=== PATIENT | female | born 1960 | race Caucasian/White ===

== ENCOUNTER → 2019-12-30 09:18 | Outpatient (CLI) | payer BC, SELFPAY ==
--- NOTE | ~2019-12-30 | DEXA_ITS ---
Bone Density Report Name: Mirlande Ace Age: 59 Sex: Female Ethnicity: White Date of : 1960 Indication: postmenopausal; screening for osteoporosis; height loss; Referring Provider: TIGRE FISHER Study: Bone densitometry was performed. Exam Date: December 30, 2019 Accession number: [id number] Bone Density: Region BMD T-score Z-score Classification AP Spine (L1-L4) 1.180 1.2 2.5 Normal Femoral Neck (Left) 0.958 1.0 2.2 Normal Total Hip (Left) 1.165 1.8 2.7 Normal Femoral Neck (Right) 0.863 0.1 1.3 Normal Total Hip (Right) 1.165 1.8 2.7 Normal Total Hip Mean 1.165 1.8 2.7 Normal World Health Organization criteria for BMD impression classify patients as: Normal (T-score at or above -1.0), Osteopenia (T-score between -1.0 and -2.5), or Osteoporosis (T-score at or below -2.5). 10-year Fracture Risk: FRAX not reported because: All T-scores for Spine Total, Hip Total, Femoral Neck at or above -1.0 Previous Exams: Region Exam Age BMD T-score BMD Change BMD Change Date g/cm2 vs Baseline vs Previous AP Spine(L1-L4) 12/30/2019 59 1.180 1.2 0.011 0.011 07/09/2013 52 1.169 1.1 Total Hip(Left) 12/30/2019 59 1.165 1.8 0.006 0.006 07/09/2013 52 1.158 1.8 Total Hip(Right) 12/30/2019 59 1.165 1.8 0.020 0.020 07/09/2013 52 1.146 1.7 *Denotes significance at 95% confidence level, LSC for AP Spine = 0.022 g/cm2, LSC for Total Hip = 0.027 g/cm2 Clinical Information Provided by Patient: Has used the following medications: Vitamin D Patient maximum height was 63 Menopause Age: 55 No regular weight bearing exercise Drinks caffeinated beverages Onset of menses at age 15 Number of children 0 Impression: The patient has normal bone mass. No significant bone loss was observed. Discussion: BONE DENSITY IS ABOVE THE MINIMUM DESIRABLE LEVEL AT ALL SKELETAL SITES TESTED. This patient?s bone mineral density is above the minimum desirable level (T-score -1.0 or better) at all sites measured. The patient should follow a healthful lifestyle (good nutrition with adequate calcium and vitamin D, and appropriate weight-bearing exercise). Follow-Up: Consider repeating this study in 5 years or sooner if there is some new clinical indication. Reported by: DUDLEY on 12/30/2019 9:46:00 AM. Reviewed, dictated and finalized at l
--- NOTE | ~2019-12-30 | MM_ITS ---
EXAMINATION: MM screening [facility] BI w jason HISTORY: Screening TECHNIQUE: Craniocaudal and mediolateral oblique 3-D tomosynthesis images were obtained and synthetic 2-D images were generated. CAD analysis was submitted and interpreted. COMPARISON: Comparison to multiple prior studies sequentially, with oldest reviewed study dated 07/09. BREAST PARENCHYMAL COMPOSITION: There are scattered areas of fibroglandular density. FINDINGS: There is no evidence of suspicious mass, calcification, or architectural distortion to sugg est malignancy in either breast. There has been no suspicious interval change. IMPRESSION: 1. No mammographic evidence of malignancy. 2. Recommend routine screening mammography in one year. BI-RADS Category 1: Negative Reviewed, dictated and finalized at location A.
== END ==
PROVIDERS: Visit Provider Obstetrics & Gynecology Gynecology
DX: Z12.31 Encounter for screening mammogram for malignant neoplasm of breast (principal); Z78.0 Asymptomatic menopausal state
CPT/HCPCS: 77063; 77067; 77080

== ENCOUNTER → 2021-01-01 07:12 | Outpatient (CLI) | payer BC, SELFPAY ==
--- NOTE | ~2021-01-01 | MM_ITS ---
EXAMINATION: MM screening [facility] BI w jason HISTORY: Screening TECHNIQUE: Craniocaudal and mediolateral oblique 3-D tomosynthesis images were obtained and synthetic 2-D images were generated. CAD analysis was submitted and interpreted. COMPARISON: Comparison to multiple prior studies sequentially, with oldest reviewed study dated 08/05. BREAST PARENCHYMAL COMPOSITION: There are scattered areas of fibroglandular density. FINDINGS: There is no evidence of suspicious mass, calcification, or architectural distortion to sugg est malignancy in either breast. There has been no suspicious interval change. IMPRESSION: 1. No mammographic evidence of malignancy. 2. Recommend routine screening mammography in one year. BI-RADS Category 1: Negative Reviewed, dictated and finalized at location A.
== END ==
PROVIDERS: PCP Internal Medicine; Visit Provider Nurse Practitioner
DX: Z12.31 Encounter for screening mammogram for malignant neoplasm of breast (principal)
CPT/HCPCS: 77063; 77067

== ENCOUNTER → 2021-10-21 13:41 | Outpatient (CLI) | payer BC, SELFPAY ==
--- NOTE | ~2021-10-21 | US_ITS ---
EXAMINATION: US transvaginal DATE: 10/21/2021 14:19 INDICATION: Postmenopausal bleeding Comparison:Ultrasound dated 06/18/2016 TECHNIQUE: Multiple endovaginal sonographic images of the pelvis performed. FINDINGS: The uterus measures 4.9 x 2.5 x 3.8 cm. The endometrial complex measures 3 mm. The ovaries are not visualized. There is no free fluid in the pelvis. There are no abnormal masses seen on either side. IMPRESSION: 1. Unremarkable pelvic ultrasound. Reviewed, dictated and finalized at location A.
== END ==
PROVIDERS: PCP Internal Medicine; Visit Provider Obstetrics & Gynecology Gynecology
DX: N95.0 Postmenopausal bleeding (principal)
CPT/HCPCS: 76830

== ENCOUNTER → 2022-01-14 07:32 | Outpatient (CLI) | payer BC, SELFPAY ==
--- NOTE | ~2022-01-14 | MM_ITS ---
EXAMINATION: MM screening [facility] BI w jason HISTORY: Screening mammogram TECHNIQUE: Craniocaudal and mediolateral oblique 3-D tomosynthesis images were obtained and synthetic 2-D images were generated. CAD analysis was submitted and interpreted. COMPARISON: 01/01/2021, , 08/16/2018 bilateral screening mammogram examinations BREAST PARENCHYMAL COMPOSITION: There are scattered areas of fibroglandular density. FINDINGS: Stable mild fibroglandular asymmetry. There is no evidence of suspicious mass, calcificatio n, or architectural distortion to suggest malignancy in either breast. There has been no suspicious i nterval change. IMPRESSION: 1. No mammographic evidence of malignancy. 2. Recommend routine screening mammography in one year. BI-RADS Category 1: Negative Reviewed, dictated and finalized at location A.
== END ==
PROVIDERS: PCP Internal Medicine; Visit Provider Obstetrics & Gynecology Gynecology
DX: Z12.31 Encounter for screening mammogram for malignant neoplasm of breast (principal)
CPT/HCPCS: 77063; 77067

== ENCOUNTER 2022-02-28 07:24 | Outpatient (CLI) | payer BC, SELFPAY ==
--- NOTE | 2022-02-28 | ECHO_ITS ---
Patient Info Name: Mirlande Ace Age: 61 years : 1960 Gender: Female Ht: 63 in Wt: 235 lbs BSA: 2.23 m2 HR: 61 bpm BP: 143 / 80 mmHg Heart Rhythm: Sinus Rhythm Exam Date: 02/28/2022 8:31 AM Exam Location: [facility] Patient Status: Outpatient Admit Date: 02/28/2022 Staff Ordering Physician: NeftalyBe MD Mechatronics Technologist: Mare Mcelroy RDCS Attending Provider: NeftalyBe MD Exam Type: CA echo doppler color flow Study Info Indications R60.9 - Edema, unspecified Complete two-dimensional, color flow and Doppler transthoracic echocardiogram is performed. Summary 1. Complete two-dimensional, color flow and Doppler transthoracic echocardiogram is performed. 2. Left ventricular systolic function is normal, estimated at 60-65%. 3. The left ventricular diastolic function is grade I diastolic dysfunction. 4. No valvular dysfunction. 5. Left ventricular false tendon incidentally identified. Left Ventricle Left ventricular chamber dimension is normal. Left ventricular systolic function is normal, estimated at 60-65%. The left ventricular diastolic function is grade I diastolic dysfunction. Right Ventricle Right ventricular chamber dimension is normal. Left Atria Left atrial chamber dimension is normal. Right Atria Right atrial chamber dimension is normal. Aortic Valve The aortic valve is normal. Pulmonic Valve The pulmonic valve is not well visualized. Mitral Valve The mitral valve has normal leaflets. Tricuspid Valve The tricuspid valve leaflets are normal. Pericardium/Pleural The pericardium appears normal. Aorta The aortic root size at the sinus of Valsalva is normal. Left Ventricular Outflow Tract Name Value Normal LVOT 2D LVOT Diameter 1.9 cm LVOT Doppler LVOT Peak Gradient 3 mmHg LVOT Mean Gradient 1 mmHg LVOT VTI 22 cm LVOT VTI/AV VTI Ratio 0.6 LVOT Stroke Volume 60 ml LVOT CO 3.1 l/min LVOT CI 1.4 l/min/m2 Pulmonic Valve Name Value Normal RVOT Doppler RVOT Peak Gradient 1 mmHg PV Doppler PV Peak Gradient 4 mmHg Mitral Valve Name Value Normal MV Doppler MV Peak Gradient 6 mmHg MV Mean Gradient 2 mmHg MV Decel Scott 707 cm/s2
== END 2022-02-28 07:25 | disposition home or self-care (01) ==
PROVIDERS: PCP Internal Medicine; Visit Provider Internal Medicine
DX: R60.0 Localized edema (principal)
CPT/HCPCS: 93306

== ENCOUNTER → 2023-03-27 09:50 | Outpatient (CLI) | payer BC, SELFPAY ==
--- NOTE | ~2023-03-27 | MM_ITS ---
EXAMINATION: MM screening [facility] BI w jason HISTORY: Screening mammogram TECHNIQUE: Craniocaudal and mediolateral oblique 3-D tomosynthesis images were obtained and synthetic 2-D images were generated. CAD analysis was submitted and interpreted. COMPARISON: 01/14/2022, 01/01/2021, 12/30/2019 BREAST PARENCHYMAL COMPOSITION: The breasts are almost entirely fatty. FINDINGS: No suspicious mass, calcification, or architectural distortion are identified in either adithya ast to suggest malignancy. There has been no suspicious interval change. IMPRESSION: 1. No mammographic evidence of malignancy. 2. Recommend routine screening mammography in one year. BI-RADS Category 1: Negative Reviewed, dictated and finalized at location A.
== END ==
PROVIDERS: PCP Obstetrics & Gynecology Gynecology; Visit Provider Obstetrics & Gynecology Gynecology
DX: Z12.31 Encounter for screening mammogram for malignant neoplasm of breast (principal)
CPT/HCPCS: 77063; 77067

== ENCOUNTER 2024-10-28 07:34 | Observation (INO) | payer BC, SELFPAY ==
[2024-10-28] VITALS (7 sets, daily range): BP systolic 122–151; BP diastolic 60–94; PULSE 63–80; RESP 16–20; TEMP 36.4–37.3; O2SAT 95–98; BMI 38.2
--- NOTE | ~2024-10-28 | CT_ITS ---
CT brain wo con Ordering provider: Bronson Baca MD History: 64 years Female with . Fall . Comparison: None. Technique: CT of the head without contrast. Radiation reduction technique utilized.The dose-length pr oduct was 605.33 mGy-cm. FINDINGS: BRAIN PARENCHYMA AND CSF SPACES: No midline shift, mass effect or hemorrhage. The brain parenchyma a nd CSF spaces are otherwise normal. VISUALIZED PARANASAL SINUSES: Well aerated. MASTOIDS: Well aerated. BONES: The bones appear intact. SOFT TISSUES: Visualized nasopharynx is normal. Sebaceous cyst is seen in the occipital area scalp. Otherwise, Superficial soft tissues are normal. IMPRESSION: No acute intracranial findings. Reviewed, dictated and finalized at location A.
--- NOTE | ~2024-10-28 | XR_ITS ---
EXAM: XR hip RT 2V w AP pelvis DATE: 10/28/2024 16:53 HISTORY: Recent hip surgery, fall . COMPARISON: 01/27/2022, images only. FINDINGS: Normal mineralization. Lumbar degenerative disc disease. Bilateral hip arthroplasty hardwa re, without hardware fracture or perihardware lucency. Uncomplicated appearing cerclage wires around the bilateral proximal femurs. Vertical lucency in the medial cortex of the proximal right femur boo cent to the femoral component, just above the level of the cerclage wire. No other osseous fracture d etected. IMPRESSION: Vertically oriented fracture in the medial cortex of the proximal right femur just above the level of the cerclage wire. Comparison to postoperative images would be helpful, if they can be m abiel available. Reviewed, dictated and finalized at location K. IMPRESSION: Vertically oriented fracture in the medial cortex of the proximal r ight femur just above the level of the cerclage wire. Comparison to postoperati ve images would be helpful, if they can be made available.
[2024-10-28 09:47] LABS: Basophils Percent Auto 0.8 % (0.2-1.2); Eosinophils Absolute Auto 0.1 K/mm3 (0-0.3); Eosinophils Percent Auto 2.5 % (0-4.4); Hematocrit 38.4 % (37.0-47.0); Hemoglobin 12.1 g/dL (12.0-15.0); Immature Granulocyte Absolute 0.02 K/mm3 (0.00-0.031); Immature Granulocyte Percent A 0.4 % (0-0.5); Lymphocytes Absolute Auto 0.93 K/mm3 (0.9-3.2); Lymphocytes Percent Auto 17.9 % (18.3-44.2); Mean Corpuscular HGB Conc 31.5 g/dl (32-36); Mean Corpuscular Hemoglobin 30.2 pg (26-34); Mean Corpuscular Volume 95.8 fl (80-100); Mean Platelet Volume 9.5 fl (7.4-10.4); Monocytes Absolute Auto 0.4 K/mm3 (0.1-0.6); Monocytes Percent Auto 7.5 % (2.6-8.5); Neutrophils Absolute Auto 3.7 K/mm3 (1.3-6.7); Neutrophils Percent Auto 70.9 % (45.5-73.1); Platelet Count Result 268 k/mm3 (150-375); Red Blood Count 4.01 M/mm3 (4.2-5.4); Red Cell Distribution Width 13.6 % (11.5-14.5); White Blood Count 5.2 K/mm3 (4.5-10.0)
--- OUTSIDE RECORDS SUMMARY | 2024-10-28 09:50 | XMS_ITS | Referral Summary ---
Author Organization [facility] Virtual Care Address [address] [place] [phone] Phone Care Team Providers Care Intake Coordinator Name Role Phone Be Higginbotham MD Primary Care Provider + [phone] Donn Bahena MD Unavailable [phone] Matthew Crouch OT Unavailable Unavailable Jeanine Wilson Unavailable [phone] Encounters Date Type Department Care Team Description 10/25/2024 Telephone [facility] Orthopedics and Sports Medicine [address] [place] [address] [address] [place] [phone] Jeanine Wilson PA 10/02/2024 Home Care Visit [address] [address] [address] [place] [address] Elizabeth Baldwin RN SN TRIAGE ENCOUNTER 09/30/2024 Home Care Visit [address] [address] [place] [address] Isabella Paulino, RN NURSE MED RECON FOR THERAPY 09/28/2024 Home Care Visit [address] [address] [place] [address] Isabella Paulino, GIOVANNY NURSE MED RECON FOR THERAPY 09/27/2024 Home Care Visit [address] [address] [place], [place] [id number] Danielle Mireles, RN NURSE MED RECON FOR THERAPY 09/26/2024 Home Care Visit [address] [place] [address] Danielle Mireles, RN NURSE MED RECON FOR THERAPY 09/25/2024 Plan of Care Documentation [address] [place] [address] 09/25/2024 Home Care Visit [address] [place] [address] Quentin Arellano, PT TELEPHONE ENCOUNTER 09/25/2024 1:00 PM CDT Home Care Visit [address] [place] [address] Quentin Arellano, PT PT OASIS START OF CARE 09/23/2024 Home Care Visit [address] [address] [place] [address] Quentin Arellano, PT TELEPHONE ENCOUNTER 09/20/2024 Home Care Visit [address] [place] [address] Quentin Arellano, PT TELEPHONE ENCOUNTER 09/20/2024 Telephone [facility] Orth[facility] Sports Medicine [address] [place] [address] [address] [place] [phone] Jeanine Wilson PA 09/20/2024 Home Care Visit [address] [place] [address] Quentin Arellano, PT CASE COMMUNICATION 09/19/2024 Home Care Visit [address] [place] [address] Quentin Arellano, PT TELEPHONE ENCOUNTER 09/17/[address] [place] [address] Edelmira Crawford RN 09/17/2024 Travel 09/17/2024 Telephone [facility] Medical [facility] Orthopedics and Sports Medicine [address] [place] [address] [address] [place] [address] Jeanine iWlson PA 09/17/2024 1:30 PM CDT Telemedicine [facility] Orthopedics and Sports Medicine [address] [place] [address] [address] [place] [address] Jeanine Wilson PA Aftercare following right hip joint replacement surgery (Primary Dx) 09/02/2024 10:17 AM CDT - 09/02/2024 11:59 PM CDT Hospital Encounter [facility] B[facility] Emergency, Room R Discharge Disposition: Discharge to home or self care 08/26/2024 7:52 AM CDT - 09/02/2024 7:51 PM CDT Hospital Encounter [facility] [address] [place] [address] Donn Bahena MD Primary osteoarthritis of right hip; Neuropathy Discharge Disposition: Discharge to SNF 08/26/2024 9:55 AM CDT - 08/26/2024 12:20 PM CDT Surgery [facility] Operating [facility] [address] [place] [address] Donn Bahena MD Right Total Hip Arthroplasty 08/26/2024 9:10 AM CDT Anesthesia Event [facility] [address] [place] [address] Jr Hull MD 08/22/2024 Telephone [facility] Sports Medicine [address] [place] [address] [address] [place] [address] Donn Bahena MD Surgery Clearance 08/19/2024 7:06 AM CDT - 08/19/2024 11:59 PM CDT Hospital Encounter [address] [address] Pre-operative exam Discharge Disposition: Discharge to home or self care 08/17/2024 9:45 AM CDT Lab [address] [address] Primary osteoarthritis of right hip; Pre-operative exam 08/17/2024 9:25 AM CDT - 08/17/2024 11:59 PM CDT Hospital Encounter [facility] [address] [place] [id number] Pre-operative exam Discharge Disposition: Discharge to home or self care 08/14/2024 Telephone [facility] Orthopedics and Sports Medicine [address] [facility] [address] [place] [address] Donn Bahena MD from Last 3 Months Allergies No known active allergies Medications cyanocobalamin (Vitamin B-12) 1,000 mcg/mL injectionIndicat ions:Vitamin B12 Deficiency cyanocobalamin (vit B-12) 1,000 mcg/mL injection solution INJECT 1 ML INTRAMUSCULARLY ONCE EVERY MONTH Active BD Insulin Syringe Ultra-Fine 1 mL 31 gauge x 5/16 syringe as directed Active BD Luer-Silverio Syringe 3 mL 25 x 5/8 syringe USE TO INJECT CYANOCOBALMIN MONTHLY Active amoxicillin 500 mg tablet/capsule Activ e insulin syringe-needle U-100 (BD Insulin Syringe Ultra-Fine) 1 mL 31 gauge x 5/16 syringe BD Insulin Syringe Ultra-Fine 1 mL 31 gauge x 5/16 USE DIRECTED Active aspirin 81 mg enteric coated tabletIndication s:Deep Vein Thrombosis Prevention Take 1 tablet (81 mg total) by mouth 2 (two) times a day 60 tablet 11 2025 Active ferrous sulfate 325 mg (65 mg of elemental iron) tabletIndication s:Iron Deficiency Anemia,Anemia prevention Take 1 tablet (325 mg total) by mouth daily with breakfast 30 tablet 11 2025 Active ondansetron ODT (ZOFRAN-ODT) 4 mg disintegrating tabletIndication s:nausea and vomiting [The details of the medication are not available because there are pending changes by a home health clinician.] 20 tablet 2 Active Additional Information Patient not taking.Reported on 09/30/2024 oxyCODONE-acetam inophen (PERCOCET) 5-325 mg per tabletIndication s:Pain [The details of the medication are not available because there are pending changes by a home health clinician.] 40 tablet Active Additional Information Patient not taking.Reported on 09/30/2024 senna-docusate (PERICOLACE) 8.6-50 mgIndications:co nstipation [The details of the medication are not available because there are pending changes by a home health clinician.] 60 tablet 2 Active Additional Information Patient not taking.Reported on 09/30/2024 ergocalciferol (VITAMIN D) 50,000 unit capsule Take 1 capsule (50,000 Units total) by mouth once a week 4 capsule 025 Active ascorbic acid (VITAMIN C) 500 mg tablet,chewable Take 1 tablet/chew tab (500 mg total) by mouth daily 30 tablet/robert w tab Active pregabalin (LYRICA) 150 mg capsuleIndicatio ns:Neuropathy [The details of the medication are not available because there are pending changes by a home health clinician.] 90 capsule Active Additional Information Patient not taking.Reported on 09/30/2024 spironolactone (ALDACTONE) 100 mg tablet [The details of the medication are not available because there are pending changes by a home health clinician.] 30 tablet 025 Active Additional Information Patient taking differently:100 mg oral2 times daily, Indications: swelling, Reported on 09/30/2024 Synthroid 200 mcg tabletIndication s:hypothyroidism Take 1 tablet (200 mcg total) by mouth daily 30 tablet Active FLUoxetine (PROzac) 40 mg capsuleIndicatio ns:depression Take 80 mg by mouth daily. rx # [id number] Indications: depression Active pregabalin (LYRICA) 75 mg capsuleIndicatio ns:Postoperative Acute Pain Take 75 mg by mouth 2 (two) times a day. rx # [id number] Indications: acute pain following an operation Active buPROPion XL (Wellbutrin XL) 300 mg 24 hr tabletIndication s:Anxiety with Depression Take 300 mg by mouth every morning. rx # [id number] Indications: anxiousness associated with depression Active naproxen (NAPROSYN) 500 mg tabletIndication s:Pain Take 500 mg by mouth 2 (two) times a day as needed for pain. rx # [id number] Indications: pain Active celecoxib (CeleBREX) 200 mg capsule Take 1 capsule by mouth twice daily 60 capsule 025 Active celecoxib (CeleBREX) 200 mg capsuleIndicatio ns:Pain Take 1 capsule (200 mg total) by mouth 2 (two) times a day 60 capsule 025 2024 Discontinued Active Problems Problem Noted Date Diagnosed Date Peripheral vascular disease, unspecified 024 Assessment & Plan (02/21/2024 10:12 AM CDT): Patient's lower extremity arterial Doppler exam is normal with triphasic waveforms bilaterally and normal ABIs. Symptoms are neurogenic in nature. She can follow- up as needed. Assessment & Plan (01/24/2024 8:56 AM CDT): Bilateral lower extremity claudication left greater than right, mostly appears to be neurogenic in nature. Lower extremity arterial Doppler ordered, as her arterial duplex did not have ABIs included and based on velocities I do not identify any PVD. Continue 81 mg ASA, recommend statin therapy. Spinal stenosis of lumbar re gion with neurogenic claudication 02/28/2023 Spondylosis of lumbar region without myelopathy or radiculopathy 02/28/2023 Blood glucose abnormal 01/21/2022 Rhinitis medicamentosa 01/21/2022 Cramps of lower extremity 01/21/2022 Hypothyroidism 01/21/2022 Assessment & Plan (03/22/2023 5:01 PM CDT): Uncontrolled, with elevated TSH This is probably related to the patient missing many doses, problems with absorption or also getting different generics of the levothyroxine I advised to the patient to take the medications probably at night at bedtime which is an empty stomach Also says that the medication every day and if she misses 1 or 2 doses she can always take altogether to make up for 7 tablets at the end of the week I have sent in a prescription for Synthroid 200 mcg daily Will update TFTs today and recheck again in 2 months after she has been taking the Synthroid Skin lesion 01/21/2022 Gait disturbance 11/11/2021 Vitamin B12 deficiency (non anemic) 11/02/2021 Obesity 10/25/2021 Paresthesia 10/19/2021 Low back pain 07/08/2021 Dyslipidemia 04/09/2019 Assessment & Plan (01/24/2024 8:56 AM CDT): Recommend statin therapy. Anxiety 01/27/2018 Resolved Problems Problem Noted Date Diagnosed Date Resolved Date Primary osteoarthritis of right hip 02/28/2023 09/16/2024 Primary osteoarthritis of left hip 10/13/2021 05/06/2024 Immunizations Immunization Administration Dates Next Due Influenza, Quadrivalent, Spl it, Preservative Free, Intramuscular 04/01/2021,03/22/2020 Influenza, Unspecified 02/26/2022 Social History Tobacco Use Types Packs/Day Years Used Date Smoking Tobacco: Never Smokeless Tobacco: Never Tobacco Cessation:Counseling Given: Not Answered OASIS D0700: Social Isolation Answer Da te Recorded Frequency of experiencing loneliness or isolatio n Never 09/25/2024 OASIS A1250: Transportation Answer Date Recorded Lack of Transportation (Medical) No 09/25/2024 Lack of Transportation (Non-Medical) No 09/25/2024 Patient Unable or Declines to Respond No 09/25/2024 OASIS B1300: Health Literacy Answer Rusty e Recorded Frequency of needing help to read materials from doctor or pharmacy Never 09/25/2024 [facility] Utilities Answer Date Recorded In the past 12 months has [employer], gas, oil, or water [employer] threatened to shut off services in your home? No 08/27/2024 Social Connection and Isolat ion Panel [NHANES] Answer Date Recorded In a typical week, how many times do you talk on the phone with family, friends, or neighbors? More than three times a week 08/27/2024 How often do you get togethe r with friends or relatives? More than three times a week 08/27/2024 How often do you attend chur ch or cheondoism services? Patient declined 08/27/2024 Do you belong to any clubs o r organizations such as hoahaoism groups, unions, fraternal or athletic groups, or school groups? Patient declined 08/27/2024 How often do you attend meet ings of the clubs or organizations you belong to? Patient declined 08/27/2024 Are you , , di vorced, , never , or living with a partner? 08/27/2024 AUDIT-C Answer Date Recorded Q1: How often do you have a drink containing alc ohol? Monthly or less 08/26/2024 Q2: How many drinks containi ng alcohol do you have on a typical day when you are drinking? 1 or 2 08/26/2024 Q3: How often do you have si x or more drinks on one occasion? Never 08/26/2024 Overall Financial Resource Strain (CARDIA) Answe r Date Recorded How hard is it for you to pa y for the very basics like food, housing, medical care, and heating? Somewhat hard 08/27/2024 PHQ-2 Answer Date Recorded PHQ-2 Total Score (If total score is 3 or more points, staff should administer the PHQ-9) 0 03/22/2023 Hunger Vital Sign Answer Date Recorded Within the past 12 months, y ou worried that your food would run out before you got the money to buy more. Never true 08/28/19 25 Within the past 12 months, t he food you bought just didn't last and you didn't have money to get more. Never true 08/27/2024 PRAPARE - Transportation Answer Date Re corded In the past 12 months, has l ack of transportation kept you from medical appointments or from getting medications? Yes 05/2024 In the past 12 months, has l ack of transportation kept you from meetings, work, or from getting things needed for daily living? Yes 08/27/2024 Housing Stability Vital Sign Answer Rusty e Recorded In the last 12 months, was t here a time when you were not able to pay the mortgage or rent on time? No 08/27/2024 In the past 12 months, how m any times have you moved where you were living? 0 08/27/2024 At any time in the past 12 m [facility], were you homeless or living in a mcc (including now)? No 08/27/2024 Personal Safety Answer Date Recorded Have you ever been in or are you currently in a harmful physical or emotional relationship or is someone making you feel afraid or unsafe? Denies 08/26/2024 Comments No Sex and Gender Information Value Date Recorded Sex Assigned at Not on file Legal Sex Female 5:37 PM [employer]ICAL P[employer]CH [employer] Gender Identity Not on file Sexual Orientation Not on file Last Filed Vital Signs Vital Sign Reading Time Taken Comments Blood Pressure 134/66 09/25/2024 2:16 PM CDT Pulse 69 09/25/2024 2:16 PM CDT Temperature 36.3 C (97.4 F) 09/25/2024 2:16 PM CDT Respiratory Rate 18 09/25/2024 2:16 PM CDT Oxygen Saturation 98% 09/25/2024 2:16 PM CDT Inhaled Oxygen Concentration - - Weight 95.3 kg (210 lb) 09/25/2024 2:16 PM CDT Height 157.5 cm (5' 2) 09/25/2024 2:16 PM CDT Body Mass Index 38.41 09/25/2024 2:16 PM CDT Plan of Treatment Not on file Medical Devices Implanted Type Area Apprise Counselor Device Identifier Shelf Expiration Date Model / Serial / Lot [employer] Soldier 6.5mm 35mm Acetabular Cancellous Screw Bone Sterile 1217-35-500 - [id number] Implanted:Qty: 1 on 05/02/2022 by Donn Bahena MD at [facility] Left: Hip [employer] 01/27/2032 1217-35-500 / / [id number] [employer] Soldier 52mm Sector Hip Shell Acetabular Gription Sterile Latex Free [id number] - [id number] Implanted:Qty: 1 on 05/02/2022 by Donn Bahena MD at [facility] Left: Hip [employer] 10/27/2031 [id number] / / [id number] [employer] Soldier 52mm 36mm Hip Neutral Liner Acetabular Altrx Sterile Latex Free [id number] - [id number] Implanted:Qty: 1 on 05/02/2022 by Donn Bahena MD at [facility] Left: Hip [employer] 08/26/2026 [id number] / / [id number] [employer] Actis Collared Hip 05/11 4 Standard Offset Stem Femoral [id number] - [id number] Implanted:Qty: 1 on 05/02/2022 by Donn Bahena MD at [facility] Left: Hip [employer] 12/27/2031 [id number] / / [id number] Synthes 1.7mm 750mm Crimp Cerclage Cable Orthopedic Stainless Steel 298.801.01s - [id number] Implanted:Qty: 1 on 05/02/2022 by Donn Bahena MD at [facility] Left: Hip Synthes I 06/28/2024 298.801.01S / / [id number] [employer] Articul/Dann 36mm Cementless Hip +1.5mm 12/14 Taper Head Femoral Latex Free [id number] - [id number] Implanted:Qty: 1 on 05/02/2022 by Donn Bahena MD at [facility] Left: Hip [employer] 03/28/2027 [id number] / / [id number] [employer] Actis Collared Hip 05/11 4 Standard Offset Stem Femoral [id number] - [id number] Implanted:Qty: 1 on 08/26/2024 by Donn Bahena MD at [facility] Right: Hip [employer] 02/25/2034 [id number] / / [id number] Synthes 1.7mm 750mm Crimp Cerclage Cable Orthopedic Stainless Steel 298.801.01s - [id number] Implanted:Qty: 1 on 08/26/2024 by Donn Bahena MD at [facility] Right: Hip Synthes 02/25/2029 298.801.01S / / [id number] [employer] Articul/Dann 36mm Cementless Hip +1.5mm 12/14 Taper Head Femoral Latex Free [id number] - [id number] Implanted:Qty: 1 on 08/26/2024 by Donn Bahena MD at [facility] Right: Hip [employer] 05/28/2029 [id number] / / [id number] [employer] Soldier 6.5mm 35mm Acetabular Cancellous Screw Bone Sterile 1217-35-500 - [id number] Implanted:Qty: 1 on 08/26/2024 by Donn Bahena MD at [facility] Right: Hip [employer] 04/27/2034 1217-35-500 / / [id number] [employer] Shell Acetabular Hip Porous 3 Hole Coated Emphasys 50mm Titanium [id number] - [id number] Implanted:Qty: 1 on 08/26/2024 by Donn Bahena MD at [facility] Right: Hip [employer] 06/28/2034 [id number] / / [id number] [employer] Liner Acetabular Hip Standard Emphasys Aox 27o94lf Polyethylene [id number] - [id number] Implanted:Qty: 1 on 08/26/2024 by Donn Bahena MD at [facility] Right: Hip [employer] 06/28/2029 [id number] / / [id number] Procedures Procedure Name Priority Date/Time Associated Diagnosis Comments EGFR Routine 09/02/2024 5:06 AM CDT CBC WITHOUT DIFFERENTIAL Routine 09/02/2024 5:06 AM CDT BASIC METABOLIC PANEL Routine 09/02/2024 5:06 AM CDT EGFR Routine 09/01/2024 4:45 AM CDT CBC WITHOUT DIFFERENTIAL Routine 09/01/2024 4:45 AM CDT BASIC METABOLIC PANEL Routine 09/01/2024 4:45 AM CDT EGFR Routine 08/31/2024 5:28 AM CDT CBC WITHOUT DIFFERENTIAL Routine 08/31/2024 5:28 AM CDT BASIC METABOLIC PANEL Routine 08/31/2024 5:28 AM CDT EGFR Routine 08/30/2024 4:42 AM CDT CBC WITHOUT DIFFERENTIAL Routine 08/30/2024 4:42 AM CDT BASIC METABOLIC PANEL Routine 08/30/2024 4:42 AM CDT EGFR Routine 08/29/2024 4:58 AM CDT CBC WITHOUT DIFFERENTIAL Routine 08/29/2024 4:58 AM CDT BASIC METABOLIC PANEL Routine 08/29/2024 4:58 AM CDT EGFR Routine 08/28/2024 4:46 AM CDT CBC WITHOUT DIFFERENTIAL Routine 08/28/2024 4:46 AM CDT BASIC METABOLIC PANEL Routine 08/28/2024 4:46 AM CDT EGFR Routine 08/27/2024 7:33 AM CDT CBC WITHOUT DIFFERENTIAL Routine 08/27/2024 7:33 AM CDT BASIC METABOLIC PANEL Routine 08/27/2024 7:33 AM CDT SURGICAL PATHOLOGY Routine 08/26/2024 2: 26 PM CDT Primary osteoarthritis of right hip XR PELVIS ORTHO VIEW IP Routine 08/26/2024 12:16 PM CDT FL FLUOROSCOPY < 1 HOUR IP Routine 08/26/2024 11:24 AM CDT XR HIP RIGHT 1 VIEW IP Routine 08/26/2024 11:24 AM CDT ANESTHESIA SPINAL BLOCK Routine 08/26/2024 9:49 AM CDT ARTHROPLASTY TOTAL HIP - ANTERIOR APPROACH 08/26/2024 8:49 AM CDT Primary osteoarthritis of right hip Special Needs Anterior Approach, Depuy- Actis , Omnitrac, Aquamantys, 1 liter beta rinse, Pt to stay POTASSIUM, WHOLE BLOOD STAT 08/26/2024 8:11 AM CDT PROTIME-INR STAT 08/26/2024 8:11 AM CDT APTT STAT 08/26/2024 8:11 AM CDT URINALYSIS, MICROSCOPIC ONLY Routine 08/19/2024 5:00 AM CDT Pre-operative exam URINE CULTURE Routine 08/19/2024 5:00 AM CDT URINALYSIS AND REFLEX TO MICROSCOPIC AND CULTURE Routine 08/19/2024 5:00 AM CDT Pre-operative exam XR CHEST PA LATERAL 2 VIEWS Schedule Routine, Read Routine (OP Routine) 08/17/2024 10:03 AM CDT Pre-operative exam EGFR Routine 08/17/2024 9:42 AM CDT Pre-operative exam DIFFERENTIAL AUTO Routine 08/17/2024 9:4 2 AM CDT Pre-operative exam HEMOGLOBIN A1C Routine 08/17/2024 9:42 AM CDT Pre-operative exam COMPREHENSIVE METABOLIC PANEL Routine 08/17/2024 9:42 AM CDT Pre-operative exam CBC WITH AUTO DIFFERENTIAL Routine 08/17/2024 9:42 AM CDT Pre-operative exam PROTIME-INR Routine 08/17/2024 9:42 AM CDT Primary osteoarthritis of right hip APTT Routine 08/17/2024 9:42 AM CDT Primary osteoarthritis of right hip from Last 3 Months Results * eGFR (09/02/2024 5:06 AM CDT) eGFR 82 >=60 mL/min/1. 73 m2 Comment: Interpretive Data Reference Interval Normal >/= 90 mL/min/1.73m2 Mildly decreased* 60 - 89 mL/min/1.73m2 Mildly to moderately decreased 45 - 59 mL/min/1.73m2 Moderately to severely decreased 30 - 44 mL/min/1.73m2 Severely decreased 15 - 29 mL/min/1.73m2 Kidney Failure < 15 mL/min/1.73m2 *Relative to young adult level Estimated glomerular filtration rate is determined by the 2020 CKD-EPI equation recommended by the National Kidney Foundation (A Unifying Approach to GFR Estimation: Recommendations of the NKF-ASK Task Force on Reassessing the Inclusion of Race in Diagnosing Kidney Disease, JASN 2020). The CKD-EPI equation should not be used for patients with unstable renal function and has not been validated in children and those over 70. Current interpretive data was last reviewed 2021. Blood 09/02/2024 5:06 AM CDT 09/02/2024 5:16 AM CDT us Jeanine ALBERT LAB BLOOD ORDERABLES Final Result [facility] ([place] [address] [facility] [place] [address] * (ABNORMAL) CBC without differential (09/02/2024 5:06 AM CDT) WBC 5.41 3.80 - 9.90 K/cumm Hgb 8.8(L) 11.9 - 15.5 g/dL [facility] Hct 28.2(L) 35.6 - 45.5 % [facility] Plt 260 150 - 400 K/cumm [facility] MPV 9.9 9.1 - 12.3 fL [facility] RBC 2.73(L) 3.90 - 5.20 M/cumm [facility] ([place] MCV 103.3(H) 81.3 - 96.4 fL [facility] MCH 32.2 27.1 - 33.3 pg [facility] MCHC 31.2(L) 32.3 - 35.7 g/dL [facility] RDW CV 15.2(H) 11.1 - 14.9 % [facility] RDW SD 57.7(H) 35.7 - 48.1 fL [facility] NRBC abs 0.00 0.00 - 0.01 K/cumm [facility] Blood 09/02/2024 5:06 AM CDT 09/02/2024 5:16 AM CDT Jeanine ALBERT LAB BLOOD ORDERABLES Final Result [facility] ([place]) [facility] [employer] [address] * Basic metabolic panel (09/02/2024 5:06 AM CDT) Sodium 138 135 - 145 mmol/L Potassium, pl 4.6 3.3 - 4.9 mmol/L [facility] Chloride 101 97 - 110 mmol/L [facility] CO2 27 22 - 32 mmol/L [facility] Anion gap 10 2 - 15 mmol/L [facility] BUN 13 6 - 25 mg/dL [facility] Creatinine 0.81 0.60 - 1.10 mg/dL [facility] Glucose 87 70 - 199 mg/dL [facility] Comment: Interpretive Data Fasting glucose >/= 126 mg/dl is diagnostic for diabetes. Fasting is defined as no caloric intake for at least 8 hours. Fasting glucose between 100 mg/dl to 125 mg/dl is diagnostic of prediabetes. In a patient with classic symptoms of hyperglycemia or hyperglycemic crisis, a random glucose >/= 200 mg/dl is diagnostic for diabetes. In the absence of unequivocal hyperglycemia, results should be confirmed by repeat testing. The classification and Diagnosis of Diabetes Diabetes Care 2021; 46: S19-S40. Current interpretive data was last revised 2022. Calcium 8.8 8.5 - 10.3 mg/dL [facility] Blood 09/02/2024 5:06 AM CDT 09/02/2024 5:16 AM CDT Jeanine ALBERT LAB BLOOD ORDERABLES Final Result [facility] ([place] [place] [address] * eGFR (09/01/2024 4:45 AM CDT) eGFR 85 >=60 mL/min/1. 73 m2 Comment: Interpretive Data Reference Interval Normal >/= 90 mL/min/1.73m2 Mildly decreased* 60 - 89 mL/min/1.73m2 Mildly to moderately decreased 45 - 59 mL/min/1.73m2 Moderately to severely decreased 30 - 44 mL/min/1.73m2 Severely decreased 15 - 29 mL/min/1.73m2 Kidney Failure < 15 mL/min/1.73m2 *Relative to young adult level Estimated glomerular filtration rate is determined by the 2020 CKD-EPI equation recommended by the National Kidney Foundation (A Unifying Approach to GFR Estimation: Recommendations of the NKF-ASK Task Force on Reassessing the Inclusion of Race in Diagnosing Kidney Disease, JASN 2020). The CKD-EPI equation should not be used for patients with unstable renal function and has not been validated in children and those over 70. Current interpretive data was last reviewed 2021. Blood 09/01/2024 4:45 AM CDT 09/01/2024 5:41 AM CDT us Jeanine ALBERT LAB BLOOD ORDERABLES Final Result HEATH EISENBERG ([place]) 1 [facility] Department of Laboratories [place], [place] [id number] * (ABNORMAL) CBC without differential (09/01/2024 4:45 AM CDT) WBC 5.38 3.80 - 9.90 K/cumm Hgb 8.8(L) 11.9 - 15.5 g/dL [facility] ([place]) Hct 27.5(L) 35.6 - 45.5 % [facility] ([place]) Plt 245 150 - 400 K/cumm [facility] ([place]) MPV 10.1 9.1 - 12.3 fL [facility] ([place]) RBC 2.68(L) 3.90 - 5.20 M/cumm [facility] ([place]) MCV 102.6(H) 81.3 - 96.4 fL [facility] ([place]) MCH 32.8 27.1 - 33.3 pg [facility] ([place]) MCHC 32.0(L) 32.3 - 35.7 g/dL [facility] ([place]) RDW CV 15.3(H) 11.1 - 14.9 % [facility] ([place]) RDW SD 57.7(H) 35.7 - 48.1 fL [facility] ([place]) NRBC abs 0.00 0.00 - 0.01 K/cumm [facility] ([place]) Blood 09/01/2024 4:45 AM CDT 09/01/2024 5:41 AM CDT us Jeanine ALBERT LAB BLOOD ORDERABLES Final Result [facility] ([place]) 1 [facility] [place] [address] * Basic metabolic panel (09/01/2024 4:45 AM CDT) Sodium 139 135 - 145 mmol/L Potassium, pl 4.3 3.3 - 4.9 mmol/L [facility] ([place]) Chloride 103 97 - 110 mmol/L [facility] ([place]) CO2 28 22 - 32 mmol/L [facility] ([place]) Anion gap 8 2 - 15 mmol/L [facility] ([place]) BUN 12 6 - 25 mg/dL [facility] ([place]) Creatinine 0.78 0.60 - 1.10 mg/dL [facility] ([place]) Glucose 90 70 - 199 mg/dL [facility] ([place]) Comment: Interpretive Data Fasting glucose >/= 126 mg/dl is diagnostic for diabetes. Fasting is defined as no caloric intake for at least 8 hours. Fasting glucose between 100 mg/dl to 125 mg/dl is diagnostic of prediabetes. In a patient with classic symptoms of hyperglycemia or hyperglycemic crisis, a random glucose >/= 200 mg/dl is diagnostic for diabetes. In the absence of unequivocal hyperglycemia, results should be confirmed by repeat testing. The classification and Diagnosis of Diabetes Diabetes Care 202; 46: S19-S40. Current interpretive data was last revised 2022. Calcium 8.6 8.5 - 10.3 mg/dL [facility]ATH EISNEBERG ([place]) Blood 09/01/2024 4:45 AM CDT 09/01/2024 5:41 AM CDT Jeanine ALBERT LAB BLOOD ORDERABLES Final Result HEATH MaganaCIDRA) 1 [facility] [place] [address] * eGFR (08/31/2024 5:28 AM CDT) eGFR 84 >=60 mL/min/1. 73 m2 Comment: Interpretive Data Reference Interval Normal >/= 90 mL/min/1.73m2 Mildly decreased* 60 - 89 mL/min/1.73m2 Mildly to moderately decreased 45 - 59 mL/min/1.73m2 Moderately to severely decreased 30 - 44 mL/min/1.73m2 Severely decreased 15 - 29 mL/min/1.73m2 Kidney Failure < 15 mL/min/1.73m2 *Relative to young adult level Estimated glomerular filtration rate is determined by the 2020 CKD-EPI equation recommended by the National Kidney Foundation (A Unifying Approach to GFR Estimation: Recommendations of the NKF-ASK Task Force on Reassessing the Inclusion of Race in Diagnosing Kidney Disease, JASN 2020). The CKD-EPI equation should not be used for patients with unstable renal function and has not been validated in children and those over 70. Current interpretive data was last reviewed 2021. Blood 08/31/2024 5:28 AM CDT 08/31/2024 5:49 AM CDT Jeanine ALBERT LAB BLOOD ORDERABLES Final Result HEATH MaganaCIDRA) 1 [facility] [place] [address] * (ABNORMAL) CBC without differential (08/31/2024 5:28 AM CDT) WBC 5.06 3.80 - 9.90 K/cumm Hgb 9.2(L) 11.9 - 15.5 g/dL [facility] ([place]) Hct 28.8(L) 35.6 - 45.5 % [facility] ([place]) Plt 240 150 - 400 K/cumm [facility] ([place]) MPV 10.1 9.1 - 12.3 fL [facility] ([place]) RBC 2.82(L) 3.90 - 5.20 M/cumm [facility] ([place]) MCV 102.1(H) 81.3 - 96.4 fL [facility] ([place]) MCH 32.6 27.1 - 33.3 pg [facility] ([place]) MCHC 31.9(L) 32.3 - 35.7 g/dL [facility] ([place]) RDW CV 15.5(H) 11.1 - 14.9 % [facility] ([place]) RDW SD 58.3(H) 35.7 - 48.1 fL [facility] ([place]) NRBC abs 0.00 0.00 - 0.01 K/cumm [facility] ([place]) Blood 08/31/2024 5:28 AM CDT 08/31/2024 5:48 AM CDT us Jeanine ALBERT LAB BLOOD ORDERABLES Final Result [facility] ([place]) 1 [facility] [place] [address] * Basic metabolic panel (08/31/2024 5:28 AM CDT) Pathologist [facility] Sodium 138 135 - 145 mmol/L Potassium, pl 4.5 3.3 - 4.9 mmol/L [facility] ([place]) Chloride 102 97 - 110 mmol/L [facility] ([place]) CO2 27 22 - 32 mmol/L [facility] ([place]) Anion gap 9 2 - 15 mmol/L [facility] ([place]) BUN 12 6 - 25 mg/dL [facility] ([place]) Creatinine 0.79 0.60 - 1.10 mg/dL [facility] ([place]) Glucose 84 70 - 199 mg/dL [facility] ([place]) Comment: Interpretive Data Fasting glucose >/= 126 mg/dl is diagnostic for diabetes. Fasting is defined as no caloric intake for at least 8 hours. Fasting glucose between 100 mg/dl to 125 mg/dl is diagnostic of prediabetes. In a patient with classic symptoms of hyperglycemia or hyperglycemic crisis, a random glucose >/= 200 mg/dl is diagnostic for diabetes. In the absence of unequivocal hyperglycemia, results should be confirmed by repeat testing. The classification and Diagnosis of Diabetes Diabetes Care 2021; 46: S19-S40. Current interpretive data was last revised 2022. Calcium 9.0 8.5 - 10.3 mg/dL [facility]ATH [facility] ([place]) Blood 08/31/2024 5:28 AM CDT 08/31/2024 5:49 AM CDT Jeanine ALBERT LAB BLOOD ORDERABLES Final Result AMYDIANA [facility] ([place]) 1 [facility] [place] [address] * eGFR (08/30/2024 4:42 AM CDT) eGFR >90 >=60 mL/min/1. 73 m2 Comment: Interpretive Data Reference Interval Normal >/= 90 mL/min/1.73m2 Mildly decreased* 60 - 89 mL/min/1.73m2 Mildly to moderately decreased 45 - 59 mL/min/1.73m2 Moderately to severely decreased 30 - 44 mL/min/1.73m2 Severely decreased 15 - 29 mL/min/1.73m2 Kidney Failure < 15 mL/min/1.73m2 *Relative to young adult level Estimated glomerular filtration rate is determined by the 2020 CKD-EPI equation recommended by the National Kidney Foundation (A Unifying Approach to GFR Estimation: Recommendations of the NKF-ASK Task Force on Reassessing the Inclusion of Race in Diagnosing Kidney Disease, JASN 2020). The CKD-EPI equation should not be used for patients with unstable renal function and has not been validated in children and those over 70. Current interpretive data was last reviewed 2021. Blood 08/30/2024 4:42 AM CDT 08/30/2024 4:54 AM CDT Jeanine ALBERT LAB BLOOD ORDERABLES Final Result [facility] ([place]) 1 [facility] [place] [address] * (ABNORMAL) CBC without differential (08/30/2024 4:42 AM CDT) WBC 5.43 3.80 - 9.90 K/cumm Hgb 9.0(L) 11.9 - 15.5 g/dL [facility] ([place]) Hct 28.0(L) 35.6 - 45.5 % [facility] ([place]) Plt 218 150 - 400 K/cumm [facility] ([place]) MPV 10.2 9.1 - 12.3 fL [facility] ([place]) RBC 2.76(L) 3.90 - 5.20 M/cumm [facility] ([place]) MCV 101.4(H) 81.3 - 96.4 fL [facility] ([place]) MCH 32.6 27.1 - 33.3 pg [facility] ([place]) MCHC 32.1(L) 32.3 - 35.7 g/dL [facility] ([place]) RDW CV 15.6(H) 11.1 - 14.9 % [facility] ([place]) RDW SD 58.7(H) 35.7 - 48.1 fL [facility] ([place]) NRBC abs 0.00 0.00 - 0.01 K/cumm [facility] ([place]) Blood 08/30/2024 4:42 AM CDT 08/30/2024 4:53 AM CDT Jeanine ALBERT LAB BLOOD ORDERABLES Final Result Performing Organization Address City/[facility]/ZIP Co de Phone Number HEATH [facility] ([place]) 1 [facility] [place] [address] * Basic metabolic panel (08/30/2024 4:42 AM CDT) Sodium 136 135 - 145 mmol/L Potassium, pl 3.9 3.3 - 4.9 mmol/L [facility] ([place]) Chloride 103 97 - 110 mmol/L [facility] ([place]) CO2 26 22 - 32 mmol/L [facility] ([place]) Anion gap 7 2 - 15 mmol/L [facility] ([place]) BUN 10 6 - 25 mg/dL [facility] ([place]) Creatinine 0.69 0.60 - 1.10 mg/dL [facility] ([place]) Glucose 95 70 - 199 mg/dL [facility] ([place]) Comment: Interpretive Data Fasting glucose >/= 126 mg/dl is diagnostic for diabetes. Fasting is defined as no caloric intake for at least 8 hours. Fasting glucose between 100 mg/dl to 125 mg/dl is diagnostic of prediabetes. In a patient with classic symptoms of hyperglycemia or hyperglycemic crisis, a random glucose >/= 200 mg/dl is diagnostic for diabetes. In the absence of unequivocal hyperglycemia, results should be confirmed by repeat testing. The classification and Diagnosis of Diabetes Diabetes Care 2021; 46: S19-S40. Current interpretive data was last revised 2022. Calcium 8.7 8.5 - 10.3 mg/dL [facility] ([place]) Blood 08/30/2024 4:42 AM CDT 08/30/2024 4:54 AM CDT Jeanine ALBERT LAB BLOOD ORDERABLES Final Result [facility] ([place]) 1 [facility] [place] [address] * eGFR (08/29/2024 4:58 AM CDT) Pathologist [facility] eGFR 74 >=60 mL/min/1. 73 m2 Comment: Interpretive Data Reference Interval Normal >/= 90 mL/min/1.73m2 Mildly decreased* 60 - 89 mL/min/1.73m2 Mildly to moderately decreased 45 - 59 mL/min/1.73m2 Moderately to severely decreased 30 - 44 mL/min/1.73m2 Severely decreased 15 - 29 mL/min/1.73m2 Kidney Failure < 15 mL/min/1.73m2 *Relative to young adult level Estimated glomerular filtration rate is determined by the 2020 CKD-EPI equation recommended by the National Kidney Foundation (A Unifying Approach to GFR Estimation: Recommendations of the NKF-ASK Task Force on Reassessing the Inclusion of Race in Diagnosing Kidney Disease, JASN 2020). The CKD-EPI equation should not be used for patients with unstable renal function and has not been validated in children and those over 70. Current interpretive data was last reviewed 2021. Blood 08/29/2024 4:58 AM CDT 08/29/2024 5:20 AM CDT us Jeanine ALBERT LAB BLOOD ORDERABLES Final Result [facility] ([place]) 1 [facility] [place] [address] * (ABNORMAL) CBC without differential (08/29/2024 4:58 AM CDT) WBC 6.02 3.80 - 9.90 K/cumm Hgb 8.9(L) 11.9 - 15.5 g/dL [facility] ([place]) Hct 28.0(L) 35.6 - 45.5 % [facility] ([place]) Plt 192 150 - 400 K/cumm [facility] ([place]) MPV 10.2 9.1 - 12.3 fL [facility] ([place]) RBC 2.74(L) 3.90 - 5.20 M/cumm [facility] ([place]) MCV 102.2(H) 81.3 - 96.4 fL [facility] ([place]) MCH 32.5 27.1 - 33.3 pg [facility] ([place]) MCHC 31.8(L) 32.3 - 35.7 g/dL [facility] ([place]) RDW CV 15.8(H) 11.1 - 14.9 % [facility] ([place]) RDW SD 59.3(H) 35.7 - 48.1 fL [facility] ([place]) NRBC abs 0.00 0.00 - 0.01 K/cumm [facility] ([place]) Blood 08/29/2024 4:58 AM CDT 08/29/2024 5:20 AM CDT Jeanine ALBERT LAB BLOOD ORDERABLES Final Result [facility] ([place]) 1 [facility] [place] [address] * Basic metabolic panel (08/29/2024 4:58 AM CDT) Sodium 139 135 - 145 mmol/L Potassium, pl 4.0 3.3 - 4.9 mmol/L [facility] ([place]) Chloride 106 97 - 110 mmol/L [facility] ([place]) CO2 26 22 - 32 mmol/L [facility] ([place]) Anion gap 8 2 - 15 mmol/L [facility] ([place]) BUN 11 6 - 25 mg/dL [facility] ([place]) Creatinine 0.88 0.60 - 1.10 mg/dL [facility] ([place]) Glucose 102 70 - 199 mg/dL [facility] ([place]) Comment: Interpretive Data Fasting glucose >/= 126 mg/dl is diagnostic for diabetes. Fasting is defined as no caloric intake for at least 8 hours. Fasting glucose between 100 mg/dl to 125 mg/dl is diagnostic of prediabetes. In a patient with classic symptoms of hyperglycemia or hyperglycemic crisis, a random glucose >/= 200 mg/dl is diagnostic for diabetes. In the absence of unequivocal hyperglycemia, results should be confirmed by repeat testing. The classification and Diagnosis of Diabetes Diabetes Care 202; 46: S19-S40. Current interpretive data was last revised 2022. Calcium 8.5 8.5 - 10.3 mg/dL [facility] ([place]) Blood 08/29/2024 4:58 AM CDT 08/29/2024 5:20 AM CDT Jeanine ALBERT LAB BLOOD ORDERABLES Final Result Performing Organization Address City/[facility]/ZIP Co de Phone Number HEATH MaganaCIDRA) 1 [facility] [place] [address] * eGFR (08/28/2024 4:46 AM CDT) eGFR 76 >=60 mL/min/1. 73 m2 Comment: Interpretive Data Reference Interval Normal >/= 90 mL/min/1.73m2 Mildly decreased* 60 - 89 mL/min/1.73m2 Mildly to moderately decreased 45 - 59 mL/min/1.73m2 Moderately to severely decreased 30 - 44 mL/min/1.73m2 Severely decreased 15 - 29 mL/min/1.73m2 Kidney Failure < 15 mL/min/1.73m2 *Relative to young adult level Estimated glomerular filtration rate is determined by the 2020 CKD-EPI equation recommended by the National Kidney Foundation (A Unifying Approach to GFR Estimation: Recommendations of the NKF-ASK Task Force on Reassessing the Inclusion of Race in Diagnosing Kidney Disease, JASN 2020). The CKD-EPI equation should not be used for patients with unstable renal function and has not been validated in children and those over 70. Current interpretive data was last reviewed 2021. Blood 08/28/2024 4:46 AM CDT 08/28/2024 4:55 AM CDT Jeanine ALBERT LAB BLOOD ORDERABLES Final Result HEATH EISENBERG ([place]) 1 [facility] [place] [address] * (ABNORMAL) CBC without differential (08/28/2024 4:46 AM CDT) WBC 6.77 3.80 - 9.90 K/cumm Hgb 8.9(L) 11.9 - 15.5 g/dL [facility] ([place]) Hct 27.9(L) 35.6 - 45.5 % [facility] ([place]) Plt 194 150 - 400 K/cumm [facility] ([place]) MPV 10.2 9.1 - 12.3 fL [facility] ([place]) RBC 2.71(L) 3.90 - 5.20 M/cumm [facility] ([place]) MCV 103.0(H) 81.3 - 96.4 fL [facility] ([place]) MCH 32.8 27.1 - 33.3 pg [facility] ([place]) MCHC 31.9(L) 32.3 - 35.7 g/dL [facility] ([place]) RDW CV 15.9(H) 11.1 - 14.9 % [facility] ([place]) RDW SD 60.1(H) 35.7 - 48.1 fL [facility] ([place]) NRBC abs 0.00 0.00 - 0.01 K/cumm [facility] ([place]) Blood 08/28/2024 4:46 AM CDT 08/28/2024 4:55 AM CDT us Jeanine ALBERT LAB BLOOD ORDERABLES Final Result [facility] ([place]) 1 [facility] [place] [address] * Basic metabolic panel (08/28/2024 4:46 AM CDT) Sodium 142 135 - 145 mmol/L Potassium, pl 3.9 3.3 - 4.9 mmol/L [facility] ([place]) Chloride 109 97 - 110 mmol/L [facility] ([place]) CO2 24 22 - 32 mmol/L [facility] ([place]) Anion gap 10 2 - 15 mmol/L [facility] ([place]) BUN 10 6 - 25 mg/dL [facility] ([place]) Creatinine 0.86 0.60 - 1.10 mg/dL [facility] ([place]) Glucose 99 70 - 199 mg/dL [facility] ([place]) Comment: Interpretive Data Fasting glucose >/= 126 mg/dl is diagnostic for diabetes. Fasting is defined as no caloric intake for at least 8 hours. Fasting glucose between 100 mg/dl to 125 mg/dl is diagnostic of prediabetes. In a patient with classic symptoms of hyperglycemia or hyperglycemic crisis, a random glucose >/= 200 mg/dl is diagnostic for diabetes. In the absence of unequivocal hyperglycemia, results should be confirmed by repeat testing. The classification and Diagnosis of Diabetes Diabetes Care 2021; 46: S19-S40. Current interpretive data was last revised 2022. Calcium 8.6 8.5 - 10.3 mg/dL [facility] EISEN[facility] ([place]) Blood 08/28/2024 4:46 AM CDT 08/28/2024 4:55 AM CDT Jeanine ALBERT LAB BLOOD ORDERABLES Final Result HEATH EISENBERG ([place]) 1 [facility] [place] [address] * eGFR (08/27/2024 7:33 AM CDT) eGFR >90 >=60 mL/min/1. 73 m2 Comment: Interpretive Data Reference Interval Normal >/= 90 mL/min/1.73m2 Mildly decreased* 60 - 89 mL/min/1.73m2 Mildly to moderately decreased 45 - 59 mL/min/1.73m2 Moderately to severely decreased 30 - 44 mL/min/1.73m2 Severely decreased 15 - 29 mL/min/1.73m2 Kidney Failure < 15 mL/min/1.73m2 *Relative to young adult level Estimated glomerular filtration rate is determined by the 2020 CKD-EPI equation recommended by the National Kidney Foundation (A Unifying Approach to GFR Estimation: Recommendations of the NKF-ASK Task Force on Reassessing the Inclusion of Race in Diagnosing Kidney Disease, JASN 202). The CKD-EPI equation should not be used for patients with unstable renal function and has not been validated in children and those over 70. Current interpretive data was last reviewed 2021. Blood 08/27/2024 7:33 AM CDT 08/27/2024 7:47 AM CDT Jeanine ALBERT LAB BLOOD ORDERABLES Final Result [facility] ([place]) 1 [facility] [place] [address] * (ABNORMAL) CBC without differential (08/27/2024 7:33 AM CDT) WBC 9.3 3.8 - 9.9 K/cumm Hgb 10.1(L) 11.9 - 15.5 g/dL [facility] ([place]) Hct 32.0(L) 35.6 - 45.5 % [facility] ([place]) Plt 219 150 - 400 K/cumm [facility] ([place]) MPV 10.2 9.1 - 12.3 fL [facility] ([place]) RBC 3.13(L) 3.90 - 5.20 M/cumm [facility] ([place]) MCV 102.2(H) 81.3 - 96.4 fL [facility] ([place]) MCH 32.3 27.1 - 33.3 pg [facility] ([place]) MCHC 31.6(L) 32.3 - 35.7 g/dL [facility] ([place]) RDW CV 15.9(H) 11.1 - 14.9 % [facility] ([place]) RDW SD 60.5(H) 35.7 - 48.1 fL [facility] ([place]) NRBC abs 0.00 0.00 - 0.01 K/cumm [facility] ([place]) Blood 08/27/2024 7:33 AM CDT 08/27/2024 7:47 AM CDT us Jeanine ALBERT LAB BLOOD ORDERABLES Final Result HEATH EISENBERG ([place]) 1 [facility] [place] [address] * Basic metabolic panel (08/27/2024 7:33 AM CDT) Pathologist [facility] Sodium 141 135 - 145 mmol/L Potassium, pl 4.1 3.3 - 4.9 mmol/L [facility] ([place]) Chloride 107 97 - 110 mmol/L [facility] ([place]) CO2 22 22 - 32 mmol/L [facility] ([place]) Anion gap 11 2 - 15 mmol/L [facility] ([place]) BUN 9 6 - 25 mg/dL [facility] ([place]) Creatinine 0.68 0.60 - 1.10 mg/dL [facility] ([place]) Glucose 113 70 - 199 mg/dL [facility] ([place]) Comment: Interpretive Data Fasting glucose >/= 126 mg/dl is diagnostic for diabetes. Fasting is defined as no caloric intake for at least 8 hours. Fasting glucose between 100 mg/dl to 125 mg/dl is diagnostic of prediabetes. In a patient with classic symptoms of hyperglycemia or hyperglycemic crisis, a random glucose >/= 200 mg/dl is diagnostic for diabetes. In the absence of unequivocal hyperglycemia, results should be confirmed by repeat testing. The classification and Diagnosis of Diabetes Diabetes Care 2021; 46: S19-S40. Current interpretive data was last revised 2022. Calcium 8.5 8.5 - 10.3 mg/dL [facility] ([facility]) Blood 08/27/2024 7:33 AM CDT 08/27/2024 7:47 AM CDT Jeanine ALBERT LAB BLOOD ORDERABLES Final Result [facility] ([place]) [address] [place] [address] [place] [address] * Surgical pathology (08/26/2024 2:26 PM CDT) Tissue specimen (specimen) (Bone Fragment(s),) 08/26/2024 10:29 AM CDT Narrative PATHOLOGY [facility] ([place]) - 08/28/2024 11:50 AM CDT EPIC results best viewed via link to PDF [facility] Department of Pathology [address] [place] [id number] Note to Patients: This report may contain a detailed description of human tissue sent by a health care provider to the laboratory for pathologic evaluation. The content of this report is essential for diagnosis and may provide important critical findings. This information may be unfamiliar to patients to review without a medical professional present. It is advised that the patient review this report in the presence of a health care provider who can answer questions and explain the details. Final Report Patient Name: MIRLANDE GUPTA Address: [address] [place] [address], [place] [address] Gender: F : 1960 (Age: 64) Service: Surgery Location: [facility] Hospital #: [id number] Patient Type: [facility] Taken: 08/26/2024 Received: 08/26/2024 Accessioned: 08/26/2024 Reported: 08/28/2024 Physician(s):Dr. Donn Bahena M.D. Diagnosis: Bone, right total hip arthroplasty - anterior approach: - Histologic changes consistent with degenerative joint disease. Ry Frias MD Report Electronically Reviewed and Signed Out By Ry Frias MD 08/28/2024 11:50:12 Specimen(s) Received: A: Right hip bone and tissue Microscopic Description: A decalcified section shows erosion and destruction of the articular cartilage. The marrow space appears fatty without significant hematopoietic marrow elements. There is no evidence of malignancy. The histologic changes are consistent with the clinical impression of degenerative joint disease. Clinical History: Osteoarthritis of right hip. Right total hip arthroplasty anterior approach. Gross Description: The specimen is received in a single container labeled MIRLANDE GUPTA and right hip. It is a 4.8 cm in diameter femoral head and separate 10 cc aggregate of lindo gritty hemorrhagic cortical and cancellous bone. The articular surface of the femoral head shows degenerative changes of the cartilage with erosion and eburnation. The femoral neck margin is smooth. The specimen is bisected revealing no subchondral gross lesions. Starch Dumper sections are submitted in one cassette after decalcification. Sharri Smith R.N., P.A./Be Leigh M.D. REPORT IMAGES AND SCANNED DOCUMENTS, IF INCLUDED, ONLY VIEWABLE IN PDF VERSION OF REPORT The performance characteristics of some immunohistochemical stains, fluorescence in-situ hybridization tests and immunophenotyping by flow cytometry cited in this report (if any) were determined by the Surgical Pathology Department at [facility] as part of an ongoing production quality manager program and in compliance with federally mandated regulations drawn from the Clinical Laboratory Improvement Act of 1988 (CLIA '88). Some of these tests rely on the use of analyte specific reagents and are subject to specific labeling requirements by the US Food and Drug Administration. Such diagnostic tests may only be performed in a facility that is certified by the Department of Health and Human Services as a high complexity laboratory under CLIA '88. The FDA has determined that such clearance or approval is not necessary. This test is used for clinical purposes. It should not be regarded as investigational or for research. Nevertheless, federal rules concerning the medical use of analyte specific reagents require that the following disclaimer be attached to the report: This test was developed and its performance characteristics determined by the Surgical Pathology Department [facility]. It has not been cleared or approved by the U. S. Food and Drug Administration. Note for decalcified specimens: This assay has not been validated on decalcified tissues. Results should be interpreted with caution given the possibility of false negativity on decalcified specimens Donn Bahena MD LAB PATHOLOGY ORDERABLES Final Result Performing Organization Address City/State/[facility] Co de Phone Number PATHOLOGY [facility] ([address] [address] * XR Pelvis Ortho View (08/26/2024 12:16 PM CDT) Anatomical Region Laterality Modality Body, Pelvis N/A Computed Radiogr aphy 08/26/2024 2:52 PM CDT Narrative 08/26/2024 2:54 PM CDT EXAM DESCRIPTION: XR PELVIS ORTHO VIEW REASON FOR STUDY: in pacu s/p right [place] Post op TECHNIQUE: 1 radiographic view(s) of the pelvis . COMPARISON: 08/26/2024 FINDINGS: Bilateral hip arthroplasties, in near anatomic alignment, new on the right. Postsurgical soft tissue gas about the right hip. IMPRESSION: Right hip arthroplasty in near anatomic alignment. THIS IS AN ELECTRONICALLY VERIFIED FINAL REPORT 08/26/2024 2:54 PM - Electronically signed by Bam Andrea M.D. KR: TAB Report ID: [id number] Reading Location: [id number] Procedure Note Bam Andrea MD - 08/26/2024 EXAM DESCRIPTION: XR PELVIS ORTHO VIEW REASON FOR STUDY: in pacu s/p right rtinidad Post op TECHNIQUE: 1 radiographic view(s) of the pelvis . COMPARISON: 08/26/2024 FINDINGS: Bilateral hip arthroplasties, in near anatomic alignment, new on theright. Postsurgical soft tissue gas about the right hip. IMPRESSION: Right hip arthroplasty in near anatomic alignment. THIS IS AN ELECTRONICALLY VERIFIED FINAL REPORT 08/26/2024 2:54 PM - Electronically signed by Bam Andrea M.D. KR: TAB Report ID: [id number] Reading Location: [id number] Jeanine ALBERT IMG XR PROCEDURES Fin al Result * FL Fluoroscopy < 1 Hour (08/26/2024 11:24 AM CDT) Narrative [facility] - 08/26/2024 11:24 AM CDT The images from this study are not interpreted by Radiology. Please refer to the physician's procedure / OR operative note. Donn Bahena MD IMG FLUOROSCOPY PROCEDUR ES Final Result [facility] * XR Hip Right 1 View (08/26/2024 11:24 AM CDT) Anatomical Region Laterality Modality Lower Extremities, Hip, Pelvis Right R adio Fluoroscopy 08/26/2024 2:22 PM CDT Narrative 08/26/2024 2:23 PM CDT EXAM DESCRIPTION: XR HIP RIGHT 1 VIEW REASON FOR STUDY: osteoarthritis Right hip replacement Fluoro time: 3.5 sec Mgy: .72 COMPARISON: 05/15/2024 RADIATION DOSE: Dose: 0.72 mGy Reference Air Kerma (Ka,r) Views: 1 TECHNIQUE: Intraoperative fluoroscopy was provided for procedure performed by Dr. Bahena. FINDINGS: Intraoperative fluoroscopy was provided for procedure performed by Dr. Bahena. 10 intraoperative fluoroscopic images were obtained of the right hip in the frontal projection for right hip arthroplasty. There are surgical changes of right hip arthroplasty noted. IMPRESSION: Intraoperative fluoroscopy was provided for procedure performed by Dr. Bahena. THIS IS AN ELECTRONICALLY VERIFIED FINAL REPORT 08/26/2024 2:23 PM - Electronically signed by Analias Camacho D.O. PS: PS Report ID: [id number] Reading Location: [id number] Procedure Note Analisa Camacho DO - 08/26/2024 EXAM DESCRIPTION: XR HIP RIGHT 1 VIEW REASON FOR STUDY: osteoarthritis Right hip replacement Fluoro time: 3.5 sec Mgy: .72 COMPARISON: 05/15/2024 RADIATION DOSE: Dose: 0.72 mGy Reference Air Kerma (Ka,r) Views: 1 TECHNIQUE: Intraoperative fluoroscopy was provided for procedureperformed by Dr. Bahena. FINDINGS: Intraoperative fluoroscopy was provided for procedure performed by Dr. Bahena. 10 intraoperative fluoroscopic images were obtained of theright hip in the frontal projection for right hip arthroplasty. There aresurgical changes of right hip arthroplasty noted. IMPRESSION: Intraoperative fluoroscopy was provided for procedure performed by Dr. Bahena. THIS IS AN ELECTRONICALLY VERIFIED FINAL REPORT 08/26/2024 2:23 PM - Electronically signed by Analisa Camacho D.O. PS: PS Report ID: [id number] Reading Location: [id number] Donn Bahena MD IMG XR PROCEDURES Final Result * Spinal Block (08/26/2024 9:49 AM CDT) Narrative Daniel Naranjo CRNA - 08/26/2024 9:49 AM CDT Daniel Naranjo CRNA 08/26/2024 9:49 AM Spinal Block Patient location: OR Reason for block: primary anesthetic Staff: Placed by: [employer]:Daniel Naranjo CRNA Procedure prep: Preprocedure checklist: patient identified, procedure contraindications assessed, site marked, procedure consent, surgical consent, IV checked, risks, benefits and alternatives discussed, monitors and equipment checked and timeout performed Patient position: sitting Procedure performed while patient: sedate with meaningful contact Monitoring: oximetry and blood pressure Prep solution: chlorhexadine/alcohol PPE: provider hat/mask, sterile gloves and sterile drape Skin infiltrated with lidocaine 1%: yes Spinal: Approach: midline Introducer used: yes Location: L3-4 Spinal injection: CSF demonstrated, no aspiration of heme and no paresthesias noted Number of attempts: 1 Spinal Needle: Needle type: Shiraz Needle gauge: 22 G Needle length: 9 cm Assessment: Sensory deficit - left: full eval pending Sensory deficit - right: full eval pending Events: patient tolerated procedure well with no complications us Jr Hull MD ANESTHESIA ORDERABLES Fi nal Result * Potassium, whole blood (08/26/2024 8:11 AM CDT) Potassium, bld 3.6 3.3 - 4.9 mmol/L Comment: Interpretive Data This method is not able to assess for hemolysis, which may falsely increase potassium concentrations. If further testing is needed to evaluate this result, consider in-laboratory plasma potassium. Current Interpretive Data was last revised on 2022. Blood 08/26/2024 8:11 AM CDT 08/26/2024 8:25 AM CDT Karthikeyan Serrano MD LAB BLOOD ORDERABLES F inal Result [facility] ([place]) 1 [facility] [place] [address] * aPTT (08/26/2024 8:11 AM CDT) aPTT 33 28 - 38 sec [facility] ([facility]) Comment: Interpretive Data Heparin therapeutic range: 66.0 - 100.0 seconds. Range based on correlation with therapeutic heparin activity range of 0.3 - 0.7 Units/mL. Current interpretive data was last revised on 2023. Blood 08/26/2024 8:11 AM CDT 08/26/2024 8:25 AM CDT Donn Bahena MD LAB BLOOD ORDERABLES Fin al Result Performing Organization Address [facility] Co de Phone Number [facility] ([facility]) 1 [facility] [place] [address] * Protime-INR (08/26/2024 8:11 AM CDT) PT 11.2 9.7 - 13.0 sec [facility] ([facility]) INR 1.04 0.90 - 1.20 [facility] ([facility]) Comment: Interpretive data Oral anticoagulant therapeutic ranges: Venous thromboembolism prophylaxis or treatment: 2.0-3.0 CARDIOLOGY Standard range: 2.0-3.0 High-intensity range: 2.5-3.5 Refer to indication-specific guidelines for appropriate target ranges for prosthetic heart valve replacement. Current interpretive data was last revised on 2019. Blood 08/26/2024 8:11 AM CDT 08/26/2024 8:25 AM CDT Donn Bahena MD LAB BLOOD ORDERABLES Fin al Result Performing Organization Address [facility] Co de Phone Number [facility] ([facility]) 1 [facility] [place] [address] * (ABNORMAL) Urinalysis reflex to microscopic and culture Urine (08/19/2024 5:00 AM CDT) Color, ur Yellow Yellow Clarity, ur Turbid(A) Clear [facility] ([facility]) Specific gravity, ur 1.017 1.003 - 1.030 [facility] ([facility]) pH, urine 6.0 [facility] ([facility]) Comment: Interpretive Data U rine pH is affected by diet, medications, systemic acid-base disturbances, and renal tubular function. pH may affect urinary stone formation. For example, urine pH below 6.0 may help reduce the tendency for calcium phosphate stones and pH greater than 6.0 may reduce the tendency for uric acid stone formation. Source: [facility] Current Interpretive Data was last revised on 2017 Protein, ur ql Negative Negative [facility] ([place]) Glucose, ur ql Negative Negative [facility] ([place]) Ketones, ur Trace Negative [facility] ([place]) Bilirubin, ur Negative Negative [facility] ([place]) Blood, ur Negative Negative [facility] ([place]) Urobilinogen, ur <2.0 <2.0 mg/dL [facility] ([place]) Nitrite, ur Negative Negative [facility] ([place]) Leukocyte esterase, ur 3+(A) Negative [facility] ([place]) UA reflex comment Reflex to microscopic UA will be performed. [facility] ([place]) Urine 08/19/2024 5:00 AM CDT 08/19/2024 7:14 AM CDT us Donn Bahena MD LAB MICROBIOLOGY - GENER AL ORDERABLES Final Result Performing Organization Address [facility] de Phone Number [facility] ([place]) [address] [facility] [address] * (ABNORMAL) Urinalysis, microscopic only (08/19/2024 5:00 AM CDT) WBC, ur 11-20(A) 0 - 5 /HPF RBC, ur 0-2 0 - 2 /HPF [facility] ([place]) Epithelial cells, squamous, ur >50(A) 0 - 5 /HPF [facility] ([place]) Bacteria, ur 4+(A) [facility] ([place]) Mucous, ur Present(A) [facility] ([place]) Culture Reflex Comment Reflex to urine culture will be performed. [facility] ([place]) Urine 08/19/2024 5:00 AM CDT 08/19/2024 7:14 AM CDT Donn Bahena MD LAB URINE ORDERABLES Fin al Result Performing Organization Address [facility] Co de Phone Number [facility] ([place]) [address] [facility] [place] [address] * (ABNORMAL) Urine culture Urine (08/19/2024 5:00 AM CDT) Report Final Report: Greater than or equal to 100,000 colonies/mL of Klebsiella pneumoniae (.) Comment:Testing performed by : [facility], [address] [facility], [place]., [address] Organism KLEBSIELLA PNEUMONIAE [facility] ([place]) Urine 08/19/2024 5:00 AM CDT 08/19/2024 10:02 AM CDT Narrative [facility] ([place]) - 08/21/2024 2:56 PM CDT Urine culture reflexed based upon urinalysis results. Testing performed by [facility] ([phone]) Organism Antibiotic Method Susceptibility Klebsiella pneumoniae Ampicillin INTERPRETATION Resistant Klebsiella pneumoniae Cefazolin INTERPRETATION Susceptible Klebsiella pneumoniae Nitrofurantoin INTERPRETATION Susceptible Klebsiella pneumoniae Gentamicin INTERPRETATION Susceptible Klebsiella pneumoniae Trimethoprim with Sulfamethoxazole INTERPRETATION Susceptible Klebsiella pneumoniae Meropenem INTERPRETATION Susceptible Klebsiella pneumoniae Cefepime INTERPRETATION Susceptible Klebsiella pneumoniae Ciprofloxacin INTERPRETATION Susceptible Klebsiella pneumoniae Ceftazidime INTERPRETATION Susceptible Klebsiella pneumoniae Ceftriaxone INTERPRETATION Susceptible Klebsiella pneumoniae Piperacillin/Tazobactam INTERPRE TATION Susceptible Klebsiella pneumoniae Cephalexin INTERPRETATION Susceptible Klebsiella pneumoniae Cefuroxime-axetil INTERPRETATION Susceptible Klebsiella pneumoniae Cefdinir INTERPRETATION Susceptible Donn Bahena MD LAB MICROBIOLOGY - [facility] ORDERABLES Final Result [facility] ([place]) [address] [facility] [place] [address] * XR Chest Pa Lateral 2 Views (08/17/2024 10:03 AM CDT) Anatomical Region Laterality Modality Body, Chest N/A Computed Radiogr aphy 08/21/2024 3:33 PM CDT Narrative 08/21/2024 3:34 PM CDT EXAM DESCRIPTION: XR CHEST PA LATERAL 2 VIEWS REASON FOR STUDY: Pre-operative Exam Preoperative exam right hip replacement No known heart/lung conditions nonsmoker TECHNIQUE: 2 radiographic view(s) of the chest. COMPARISON: 04/06/2022 FINDINGS: LUNGS: No focal opacity, pleural effusion, or pneumothorax. HEART/MEDIASTINUM: Cardiac silhouette normal in size. Mediastinal and hilar contours appear normal. LINES/TUBES: None. BONES: No acute osseous abnormality. IMPRESSION: No acute cardiopulmonary abnormality. THIS IS AN ELECTRONICALLY VERIFIED FINAL REPORT 08/21/2024 3:34 PM - Electronically signed by Bam Andrea M.D. KR: TAB Report ID: [id number] Reading Location: [id number] Procedure Note Bam Andrea MD - 08/21/2024 EXAM DESCRIPTION: XR CHEST PA LATERAL 2 VIEWS REASON FOR STUDY: Pre-operative Exam Preoperative exam right hip replacement No known heart/lung conditions nonsmoker TECHNIQUE: 2 radiographic view(s) of the chest. COMPARISON: 04/06/2022 FINDINGS: LUNGS: No focal opacity, pleural effusion, or pneumothorax. HEART/MEDIASTINUM: Cardiac silhouette normal in size. Mediastinal andhilar contours appear normal. LINES/TUBES: None. BONES: No acute osseous abnormality. IMPRESSION: No acute cardiopulmonary abnormality. THIS IS AN ELECTRONICALLY VERIFIED FINAL REPORT 08/21/2024 3:34 PM - Electronically signed by Bam Andrea M.D. KR: TAB Report ID: [id number] Reading Location: [place] [id number] Donn Bahena MD IMG XR PROCEDURES Final Result * eGFR (08/17/2024 9:42 AM CDT) eGFR 87 >=60 mL/min/1. 73 m2 Comment: Interpretive Data Reference Interval Normal >/= 90 mL/min/1.73m2 Mildly decreased* 60 - 89 mL/min/1.73m2 Mildly to moderately decreased 45 - 59 mL/min/1.73m2 Moderately to severely decreased 30 - 44 mL/min/1.73m2 Severely decreased 15 - 29 mL/min/1.73m2 Kidney Failure < 15 mL/min/1.73m2 *Relative to young adult level Estimated glomerular filtration rate is determined by the 2020 CKD-EPI equation recommended by the National Kidney Foundation (A Unifying Approach to GFR Estimation: Recommendations of the NKF-ASK Task Force on Reassessing the Inclusion of Race in Diagnosing Kidney Disease, JASN 2020). The CKD-EPI equation should not be used for patients with unstable renal function and has not been validated in children and those over 70. Current interpretive data was last reviewed 2021. Blood 08/17/2024 9:42 AM CDT 08/17/2024 9:57 AM CDT us Donn Bahena MD LAB BLOOD ORDERABLES Fin al Result [facility] ([facility]) [address] [facility] [place] [address] * Differential, auto (08/17/2024 9:42 AM CDT) Neutrophil abs 2.5 1.5 - 6.5 K/cumm Imm gran abs 0.0 0.0 - 0.1 K/cumm [facility] ([place]) Lymphocyte abs 1.1 0.8 - 3.3 K/cumm [facility] ([place]) Monocyte abs 0.3 0.2 - 0.8 K/cumm [facility] ([place]) Eosinophil abs 0.4 0.0 - 0.5 K/cumm [facility] ([place]) Basophil abs 0.1 0.0 - 0.1 K/cumm [facility] ([place]) Neutrophil pct 57.7 % [facility] ([place]) Comment: Interpretive Data Percent cell count reference ranges are not reported, since discordance with absolute values may lead to misinterpretation of CBC data. Current Interpretive Data was last revised on 2017. Imm gran pct 0.2 % [facility] ([place]) Comment: Interpretive Data Percent cell count reference ranges are not reported, since discordance with absolute values may lead to misinterpretation of CBC data. Current Interpretive Data was last revised on 2017. Lymphocyte pct 24.5 % [facility] ([place]) Comment: Interpretive Data Percent cell count reference ranges are not reported, since discordance with absolute values may lead to misinterpretation of CBC data. Current Interpretive Data was last revised on 2017. Monocyte pct 7.6 % [facility] ([place]) Comment: Interpretive Data Percent cell count reference ranges are not reported, since discordance with absolute values may lead to misinterpretation of CBC data. Current Interpretive Data was last revised on 2017. Eosinophil pct 8.9 % [facility] ([place]) Comment: Interpretive Data Percent cell count reference ranges are not reported, since discordance with absolute values may lead to misinterpretation of CBC data. Current Interpretive Data was last revised on 2017. Basophil pct 1.1 % [facility] ([place]) Comment: Interpretive Data Percent cell count reference ranges are not reported, since discordance with absolute values may lead to misinterpretation of CBC data. Current Interpretive Data was last revised on 2017. Blood 08/17/2024 9:42 AM CDT 08/17/2024 9:57 AM CDT us Donn Bahena MD LAB BLOOD ORDERABLES Fin al Result [facility] ([place]) [address] [facility] [place] [address] * (ABNORMAL) CBC with auto differential (08/17/2024 9:42 AM CDT) WBC 4.4 3.8 - 9.9 K/cumm Hgb 12.2 11.9 - 15.5 g/dL [facility] ([place]) Hct 37.6 35.6 - 45.5 % [facility] ([place]) Plt 237 150 - 400 K/cumm [facility] ([place]) MPV 10.1 9.1 - 12.3 fL [facility] ([place]) RBC 3.74(L) 3.90 - 5.20 M/cumm [facility] ([place]) MCV 100.5(H) 81.3 - 96.4 fL [facility] ([place]) MCH 32.6 27.1 - 33.3 pg [facility] ([place]) MCHC 32.4 32.3 - 35.7 g/dL [facility] ([place]) RDW CV 16.8(H) 11.1 - 14.9 % [facility] ([place]) RDW SD 62.4(H) 35.7 - 48.1 fL [facility] ([place]) NRBC abs 0.00 0.00 - 0.01 K/cumm [facility] ([place]) Blood 08/17/2024 9:42 AM CDT 08/17/2024 9:57 AM CDT Donn Bahena MD LAB BLOOD ORDERABLES Fin al Result Performing Organization Address [facility] Co de Phone Number [facility] ([place]) [address] [facility] [place] [address] * aPTT (08/17/2024 9:42 AM CDT) aPTT 34 28 - 38 sec [facility] ([place]) Comment: Interpretive Data Heparin therapeutic range: 66.0 - 100.0 seconds. Range based on correlation with therapeutic heparin activity range of 0.3 - 0.7 Units/mL. Current interpretive data was last revised on 2023. Blood 08/17/2024 9:42 AM CDT 08/17/2024 9:57 AM CDT us Donn Bahena MD LAB BLOOD ORDERABLES Fin al Result Performing Organization Address City/[facility] Co de Phone Number [facility] ([place]) [address] [facility] [place] [address] * Protime-INR (08/17/2024 9:42 AM CDT) PT 11.7 9.7 - 13.0 sec [facility] ([place]) INR 1.08 0.90 - 1.20 [facility] ([place]) Comment: Interpretive data Oral anticoagulant therapeutic ranges: Venous thromboembolism prophylaxis or treatment: 2.0-3.0 CARDIOLOGY Standard range: 2.0-3.0 High-intensity range: 2.5-3.5 Refer to indication-specific guidelines for appropriate target ranges for prosthetic heart valve replacement. Current interpretive data was last revised on 2019. Blood 08/17/2024 9:42 AM CDT 08/17/2024 9:57 AM CDT Donn Bahena MD LAB BLOOD ORDERABLES Fin al Result Performing Organization Address [facility] Co de Phone Number [facility] ([place]) [address] [place] [address] * Hemoglobin A1c (08/17/2024 9:42 AM CDT) Pathologist [facility] Hgb A1C 4.9 4.0 - 5.6 % Estimated Average Glucose 94 mg/dL [facility] ([place]) Comment: The ADA recommends reporting an estimated Average Glucose (eAG) with all Hemoglobin A1c results using the equation derived from a study of 507 normal and diabetic adults. Minority populations were underrepresented and children were not included. (Diabetes Care 31:8560-2185, 2008). The eAG is not equivalent to a fasting glucose. Blood 08/17/2024 9:42 AM CDT 08/17/2024 9:57 AM CDT Donn Bahena MD LAB BLOOD ORDERABLES Fin al Result Performing Organization Address [facility] Co de Phone Number [facility] ([place]) 1 [facility] [place] [address] * Comprehensive metabolic panel (08/17/2024 9:42 AM CDT) Sodium 142 135 - 145 mmol/L Potassium, pl 4.7 3.3 - 4.9 mmol/L [facility] ([place]) Chloride 106 97 - 110 mmol/L [facility] ([place]) CO2 25 22 - 32 mmol/L [facility] ([place] Anion gap 11 2 - 15 mmol/L [facility] ([place]) BUN 11 6 - 25 mg/dL [facility] ([place]) Creatinine 0.77 0.60 - 1.10 mg/dL [facility] ([place]) Glucose 100 70 - 199 mg/dL [facility] ([place]) Comment: Interpretive Data Fasting glucose >/= 126 mg/dl is diagnostic for diabetes. Fasting is defined as no caloric intake for at least 8 hours. Fasting glucose between 100 mg/dl to 125 mg/dl is diagnostic of prediabetes. In a patient with classic symptoms of hyperglycemia or hyperglycemic crisis, a random glucose >/= 200 mg/dl is diagnostic for diabetes. In the absence of unequivocal hyperglycemia, results should be confirmed by repeat testing. The classification and Diagnosis of Diabetes Diabetes Care 202; 46: S19-S40. Current interpretive data was last revised 2022. Calcium 9.5 8.5 - 10.3 mg/dL [facility] ([place]) Bilirubin, total 0.4 0.1 - 1.2 mg/dL [facility] ([place]) Protein, pl 7.0 6.5 - 8.5 g/dL [facility] ([place]) Albumin 4.2 3.5 - 5.0 g/dL [facility] ([place]) Alk phos 51 40 - 130 Units/L [facility] ([place]) ALT 27 7 - 45 Units/L [facility] ([place]) AST 36 10 - 45 Units/L [facility] ([place]) Blood 08/17/2024 9:42 AM CDT 08/17/2024 9:57 AM CDT Donn Bahena MD LAB BLOOD ORDERABLES Fin al Result [facility] ([place]) [address] [facility] [place] [address] from Last 3 Months Insurance [facility] [id number] [place] [id number] Advance Directives For more information, please contact: [phone] * Full Code (Latest Code Status on File) Date Activated Date Inactivated Comments 08/26/2024 2:16 PM 09/02/2024 11:51 PM * Full Code Date Activated Date Inactivated Comments 05/02/2022 1:50 PM 05/03/2022 4:42 PM Care Teams Intake Coordinator Relationship Specialty Start Date End Date Be Higginbotham MD PCP - General 07/14/21 Donn Bahena MD [address] [place] [address] [place] [address] Surgeon Orthopedic Surgery 05/03/22 Matthew Crouch OT Occupational Therapist Occupational Therapy 08/21/24 Jeanine Wilson PA [address] [place] [address] [address] [place] [address] Physician Assistant Professor Of Chemistry Orthopedic Surgery 09/17/24
--- OUTSIDE RECORDS SUMMARY | 2024-10-28 09:51 | XMS_ITS | Clinical Summary ---
Author Organization [facility] Virtual Care Address [address] [place] [phone] Phone Care Team Providers Care Lock Master Name Role Phone Be Higginbotham MD Primary Care Provider [phone] Donn Bahena MD Unavailable [phone] Matthew Crouch OT Unavailable Unavailable Jeanine Wilson Unavailable [phone] Allergies No known active allergies Medications cyanocobalamin (Vitamin B-12) 1,000 mcg/mL injectionIndicat ions:Vitamin B12 Deficiency cyanocobalamin (vit B-12) 1,000 mcg/mL injection solution INJECT 1 ML INTRAMUSCULARLY ONCE EVERY MONTH Active BD Insulin Syringe Ultra-Fine 1 mL 31 gauge x 5/16 syringe as directed Active BD Luer-Silverio Syringe 3 mL 25 x 5/8 syringe USE TO INJECT CYANOCOBALMIN MONTHLY 022 Active amoxicillin 500 mg tablet/capsule Activ e insulin syringe-needle U-100 (BD Insulin Syringe Ultra-Fine) 1 mL 31 gauge x 5/16 syringe BD Insulin Syringe Ultra-Fine 1 mL 31 gauge x 5/16 USE DIRECTED Active aspirin 81 mg enteric coated tabletIndication s:Deep Vein Thrombosis Prevention Take 1 tablet (81 mg total) by mouth 2 (two) times a day 60 tablet 2025 Active ferrous sulfate 325 mg (65 mg of elemental iron) tabletIndication s:Iron Deficiency Anemia,Anemia prevention Take 1 tablet (325 mg total) by mouth daily with breakfast 30 tablet 025 2025 Active ondansetron ODT (ZOFRAN-ODT) 4 mg [...] by mouth once a week 4 capsule Active ascorbic acid (VITAMIN C) 500 mg [...] by a home health clinician.] 30 tablet Active Additional Information Patient taking differently:100 mg oral2 times daily, Indications: swelling, Reported on 09/30/2024 Synthroid 200 mcg tabletIndication s:hypothyroidism Take 1 tablet (200 mcg total) by mouth daily 30 tablet Active FLUoxetine (PROzac) 40 mg capsuleIndicatio ns:depression Take 80 mg by mouth daily. rx # [id number] Indications: depression Active pregabalin (LYRICA) 75 mg capsuleIndicatio ns:Postoperative Acute Pain Take 75 mg by mouth 2 (two) times a day. rx # [id number] Indications: acute pain following an operation Active buPROPion XL (Wellbutrin XL) 300 mg 24 hr tabletIndication s:Anxiety with Depression Take 300 mg by mouth every morning. rx # [id number] Indications: anxiousness associated with depression Active naproxen (NAPROSYN) 500 mg tabletIndication s:Pain Take 500 mg by mouth 2 (two) times a day as needed for pain. rx # [id number] Indications: pain Active celecoxib (CeleBREX) 200 mg [...] Primary osteoarthritis of left hip 10/13/2021 05/06/2024 Encounters Date Type Department Care Team Description 10/25/2024 Telephone [facility] Orthopedics and Sports Medicine [address] [place] [address] [address] [place] [address] Jeanine Wilson PA 10/02/2024 Home Care Visit [address] [address] [address] [place] [address] Elizabeth Baldwin RN SN TRIAGE ENCOUNTER 09/30/2024 Home Care Visit [address] [place] [address] Isabella Paulino, GIOVANNY NURSE MED RECON FOR THERAPY 09/28/2024 Home Care Visit [address] [place] [address] Isabella Paulino, GIOVANNY NURSE MED RECON FOR THERAPY 09/27/2024 Home Care Visit [address] [place] [address] Danielle Mireles, RN NURSE MED RECON FOR THERAPY 09/26/2024 Home Care Visit [address] [place] [address] Danielle Mireles, GIOVANNY NURSE MED RECON FOR THERAPY 09/25/2024 1:00 PM CDT Home Care Visit [address] [place] [address] Quentin Arellano, PT PT OASIS START OF CARE 09/25/2024 Plan of Care Documentation [address] [place] [address] 09/25/2024 Home Care Visit [address] [place] [address] Quentin Arellano, PT TELEPHONE ENCOUNTER 09/23/2024 Home Care Visit [address] [place] [address] Quentin Arellano, PT TELEPHONE ENCOUNTER 09/20/2024 Home Care Visit [address] [address] [address] [place] [address] Quentin Arellano, PT TELEPHONE ENCOUNTER 09/20/2024 Telephone [facility] Orthopedics and Sports Medicine [address] [place] [address] [address] [place] [phone] Jeanine Wilson PA 09/20/2024 Home Care Visit [address] [place] [address] Quentin Arellano, PT CASE COMMUNICATION 09/19/2024 Home Care Visit [address] [place] [address] Quentin Arellano, PT TELEPHONE ENCOUNTER 09/17/2024 1:30 PM CDT Telemedicine [facility] Medical [facility] Orthopedics and Sports Medicine [address] [place] [address] [address] [place] [address] Jeanine Wilson, PA Aftercare following right hip joint replacement surgery (Primary Dx) 09/17/[address] [place] [address] Edelmira Crawford RN 09/17/2024 Travel 09/17/2024 Telephone [facility] Medical [facility] Orthopedics and Sports Medicine [address] [place] [address] [address] [place] [address] Jeanine Wilson PA 09/02/2024 10:17 AM CDT - 09/02/2024 11:59 PM CDT Hospital Encounter [facility] B[facility] Emergency, Room R Discharge Disposition: Discharge to home or self care 08/26/2024 9:55 AM CDT - 08/26/2024 12:20 PM CDT Surgery [facility] Operating Room [address] [place] [address] Donn Bahena MD Right Total Hip Arthroplasty 08/26/2024 9:10 AM CDT Anesthesia Event [facility] Operating Room [address] [place] [address] Jr Hull MD 08/26/2024 7:52 AM CDT - 09/02/2024 7:51 PM CDT Hospital Encounter [facility] [address] [place] [address] Donn Bahena MD Primary osteoarthritis of right hip; Neuropathy Discharge Disposition: Discharge to SNF 08/22/2024 Telephone [facility] Orthopedics and Sports Medicine [address] [place] [address] [address] [place] [address] Donn Bahena MD Surgery Clearance 08/19/2024 7:06 AM CDT - 08/19/2024 11:59 PM CDT Hospital Encounter [address] [address] Pre-operative exam Discharge Disposition: Discharge to home or self care 08/17/2024 9:45 AM CDT Lab [address] [address] Primary osteoarthritis of right hip; Pre-operative exam 08/17/2024 9:25 AM CDT - 08/17/2024 11:59 PM CDT Hospital Encounter [facility] [address] [place] [address] Pre-operative exam Discharge Disposition: Discharge to home or self care 08/14/2024 Telephone [facility] Orthopedics and Sports Medicine [address] [place] [address] Donn Bahena MD from Last 3 Months Immunizations Immunization Administration Dates Next Due Influenza, Quadrivalent, Spl it, Preservative Free, Intramuscular 04/01/2021,03/22/2020 Influenza, Unspecified 02/26/2022 Surgical History Surgery Date Site/Laterality Comments CHOLECYSTECTOMY LAPAROSCOPIC ENDOMETRIOSIS FULGURATION HIP ARTHROPLASTY Left Medical History Medical History Date Comments Thyroid disease Peripheral neuropathy Anxiety Falls patient reports falls- using wheel chair Family History Medical History Relation Name Comments Heart disease Father Hypertension Mother Hypertension Other Relation Name Status Comments Father Mother Other Alive Social History Tobacco Use Types Packs/Day Years [...] materials from doctor or pharmacy Never 09/25/2024 [facility] Utilities Answer Date Recorded In the past 12 months has e [employer] gas, oil, or water Robin threatened to shut off services in your [...] often do you attend chur ch or gnosticist services? Patient declined 08/27/2024 Do you belong to any clubs o r organizations such as confucianist groups, unions, fraternal or athletic groups, or [...] any time in the past [address] [facility], were you homeless or living in a fpc (including now)? No 08/27/2024 Personal Safety Answer Date Recorded Have you ever been in or are you currently in a harmful physical or emotional relationship or is someone making you feel afraid or unsafe? Denies 08/26/2024 Comments No Sex and Gender Information Value Date Recorded Sex Assigned at Not on file Legal Sex Female 5:37 PM RUBBER DOWN Gender Identity Not on file Sexual Orientation Not on file Obstetrics History Last Filed Vital Signs Vital Sign Reading [...] 09/25/2024 2:16 PM CDT Plan of Treatment Health Maintenance Due Date Last Done Comments Breast Cancer Screening-Mammogram 1960 Cervical Cancer Screening 1960 Colon Cancer Screening-Colonoscopy 1960 Hepatitis C Screening 1960 DTaP/Tdap/Td Vaccine (1 - Tdap) 1972 Hepatitis B Screening 1979 Regular Well Visit/Exam 18-64 1979 Zoster Vaccine (1 of 2) 2011 Covid-19 Vaccine ( - 2023-2 5 season) 2024 05/02/2021, 08/04/2020 Depression Screening 03/22/2024 03/22/2023, 03/22/2023 Influenza Vaccine (Season Ended) 2025 02/26/2022, 04/01/2021, 03/22/2020 Pneumococcal vaccine <65 Aged Out No longer eligible based on patient's age to complete this topic Medical Devices Implanted Type Area Air Launch Weapons Technician Device Identifier Shelf Expiration Date Model / Serial / Lot [employer] [place] 6.5mm 35mm Acetabular Cancellous Screw Bone Sterile 1217-35-500 - [id number] Implanted:Qty: 1 on 05/02/2022 by Donn Bahena MD at [facility] Left: Hip [employer] 01/27/2032 1217-35-500 / / [id number] [employer] [place] 52mm Sector Hip Shell Acetabular Gription Sterile Latex Free [id number] - [id number] Implanted:Qty: 1 on 05/02/2022 by Donn Bahena MD at [facility] Left: Hip [employer] 10/27/2031 [id number] / / [id number] [employer] [place] 52mm 36mm Hip Neutral Liner Acetabular Altrx Sterile Latex Free [id number] - [id number] Implanted:Qty: 1 on 05/02/2022 by Donn Bahena MD at [facility] Left: Hip [employer] 08/26/2026 [id number] / / [id number] [employer] Actis Collared Hip 05/11 4 Standard Offset Stem Femoral [id number] - [id number] Implanted:Qty: 1 on 05/02/2022 by Donn Bahena MD at [facility] Left: Hip [employer] 12/27/2031 [id number] / / [id number] Synthes 1.7mm 750mm Crimp Cerclage Cable Orthopedic Stainless Steel 298.801.01s - [id number] Implanted:Qty: 1 on 05/02/2022 by Donn Bahena MD at [facility] Left: Hip Synthes I 06/28/2024 298.801.01S / / [id number] [employer] Articul/Dann 36mm Cementless Hip +1.5mm /14 Taper Head Femoral Latex Free [id number] - [id number] Implanted:Qty: 1 on 05/02/2022 by Donn Bahena MD at [facility] Left: Hip [employer] 03/28/2027 [id number] / / [id number] [employer] Actis Collared Hip 05/11 4 Standard Offset Stem Femoral [id number] - [id number] Implanted:Qty: 1 on 08/26/2024 by Donn Bahena MD at [facility] Right: Hip [employer] 02/25/2034 [id number] / / [id number] Synthes 1.7mm 750mm Crimp Cerclage Cable Orthopedic Stainless Steel 298.801.01s - [id number] Implanted:Qty: 1 on 08/26/2024 by Donn Bahena MD at [facility] Right: Hip Synthes 02/25/2029 298.801.01S / / [id number] [employer] Articul/Dann 36mm Cementless Hip +1.5mm / Taper Head Femoral Latex Free [id number] - [id number] Implanted:Qty: 1 on 08/26/2024 by Donn Bahena MD at [facility] Right: Hip [employer] 05/28/2029 [id number] / / [id number] [employer] [place] 6.5mm 35mm Acetabular Cancellous Screw Bone Sterile 1217-35-500 - [id number] Implanted:Qty: 1 on 08/26/2024 by Donn Bahena MD at [facility] Right: Hip [employer] 04/27/2034 1217-35-500 / / [id number] [employer] Shell Acetabular Hip Porous 3 Hole Coated Emphasys 50mm Titanium [id number] - [id number] Implanted:Qty: 1 on 08/26/2024 by Donn Bahena MD at [facility] Right: Hip [employer] 06/28/2034 [id number] / / [id number] [employer] Liner Acetabular Hip Standard Emphasys Aox [id number] Polyethylene [id number] - [id number] Implanted:Qty: 1 on 08/26/2024 by Donn Bahena MD at [facility] Right: Hip [employer] 06/28/2029 [id number] / / [id number] Procedures Procedure Name Priority Date/Time Associated Diagnosis [...] LAB BLOOD ORDERABLES Final Result [facility] [place] 1 [facility] Department [place] [address] * (ABNORMAL) CBC without differential (09/02/2024 5:06 [...] ORDERABLES Final Result [facility] ([place]) 1 [facility] [place] [address] * Basic metabolic panel (09/02/2024 5:06 AM [...] ([place]) Glucose 87 70 - 199 mg/dL [facility] ([place]) [...] 2022. Calcium 8.8 8.5 - 10.3 mg/dL [facility] ([place]) Blood 09/02/2024 5:06 AM CDT 09/02/2024 5:16 AM CDT Jeanine ALBERT LAB BLOOD ORDERABLES Final Result [facility] ([place]) 1 [facility] Department [place] [address] * eGFR (09/01/2024 4:45 AM CDT) eGFR [...] ORDERABLES Final Result [facility] ([place]) 1 [facility] [employer] [address] * (ABNORMAL) CBC without differential (09/01/2024 4:45 AM CDT) WBC 5.38 3.80 - 9.90 K/cumm Hgb 8.8(L) 11.9 - 15.5 g/dL [facility] ([place]) Hct 27.5(L) 35.6 - 45.5 % [facility] ([place]) Plt 245 150 - 400 K/cumm [facility] ([place]) MPV 10.1 9.1 - 12.3 fL [facility] ([place]) RBC 2.68(L) 3.90 - 5.20 M/cumm [facility] ([place]) MCV 102.6(H) 81.3 - 96.4 [...] ORDERABLES Final Result [facility] ([place] 1 [facility] [place] [address] * Basic metabolic panel (09/01/2024 4:45 AM CDT) Sodium 139 135 - 145 mmol/L Potassium, pl 4.3 3.3 - 4.9 mmol/L [facility] ([place]) Chloride 103 97 - 110 mmol/L [facility] ([place]) CO2 28 22 - 32 mmol/L [facility] ([place]) Anion gap 8 2 - 15 mmol/L [facility] ([place]) BUN 12 6 - 25 mg/dL [facility] ([place]) Creatinine 0.78 0.60 - 1.10 mg/dL [facility] ([place]) Glucose 90 70 - 199 mg/dL [facility] ([place]) Comment: Interpretive Data Fasting glucose >/= [...] 2022. Calcium 8.6 8.5 - 10.3 mg/dL [facility] ([place]) Blood 09/01/2024 4:45 AM CDT 09/01/2024 5:41 AM CDT Jeanine ALBERT LAB BLOOD ORDERABLES Final Result [facility] ([place]) 1 [facility] Department [place] [address] * eGFR (08/31/2024 5:28 AM CDT) eGFR [...] 5:28 AM CDT 08/31/2024 5:49 AM CDT us Jeanine ALBERT LAB BLOOD ORDERABLES Final Result [facility] ([place] 1 [facility] Department [place] [address] * (ABNORMAL) CBC without differential (08/31/2024 5:28 [...] 5:28 AM CDT 08/31/2024 5:48 AM CDT Jeanine ALBERT LAB BLOOD ORDERABLES Final Result Performing Organization Address City/[facility] Co de Phone Number [facility] ([place]) 1 [facility] Department [place] [address] * Basic metabolic panel (08/31/2024 5:28 AM CDT) Sodium 138 135 - 145 mmol/L Potassium, pl 4.5 3.3 - 4.9 mmol/L [facility] ([place]) Chloride 102 97 - 110 mmol/L [facility] ([place]) CO2 27 22 - 32 mmol/L [facility] ([place]) Anion gap 9 2 - 15 mmol/L [facility] ([place]) BUN 12 6 - 25 mg/dL [facility] ([place]) Creatinine 0.79 0.60 - 1.10 mg/dL [facility] ([place]) Glucose 84 70 - 199 mg/dL [facility] Comment: Interpretive Data Fasting glucose [...] 2022. Calcium 9.0 8.5 - 10.3 mg/dL [facility] ([place]) Blood 08/31/2024 5:28 AM CDT 08/31/2024 5:49 AM CDT Jeanine ALBERT LAB BLOOD ORDERABLES Final Result [facility] ([place]) 1 [facility] Department [place] [address] * eGFR (08/30/2024 4:42 AM CDT) Pathologist [facility] eGFR >90 >=60 mL/min/1. 73 m2 Comment: [...] BLOOD ORDERABLES Final Result Performing Organization Address City/[facility]/ZIP Co de Phone Number [facility] ([place]) 1 [facility] Department [place] [address] * (ABNORMAL) CBC without differential (08/30/2024 4:42 AM CDT) Pathologist [facility] WBC 5.43 3.80 - 9.90 K/cumm Hgb 9.0(L) 11.9 - 15.5 g/dL [facility] ([place]) Hct 28.0(L) 35.6 - 45.5 % [facility] ([place]) Plt 218 150 - 400 K/cumm [facility] ([place]) MPV 10.2 9.1 - 12.3 fL [facility] ([place]) RBC 2.76(L) 3.90 - 5.20 M/cumm [facility] ([place]) MCV 101.4(H) 81.3 - 96.4 fL [facility] ([place]) MCH 32.6 27.1 - 33.3 pg [facility] ([place]) MCHC 32.1(L) 32.3 - 35.7 g/dL [facility] RDW CV 15.6(H) 11.1 - 14.9 % [facility] ([place]) RDW SD 58.7(H) 35.7 - 48.1 fL [facility] ([place]) NRBC abs 0.00 0.00 - 0.01 K/cumm [facility] Blood 08/30/2024 4:42 AM CDT 08/30/2024 4:53 AM CDT Jeanine ALBERT LAB BLOOD ORDERABLES Final Result [facility] ([place] 1 [facility] Department [place] [address] * Basic metabolic panel (08/30/2024 4:42 AM CDT) Sodium 136 135 - 145 mmol/L Potassium, pl 3.9 3.3 - 4.9 mmol/L [facility] Chloride 103 97 - 110 mmol/L [facility]) CO2 26 22 - 32 mmol/L [facility]) Anion gap 7 2 - 15 mmol/L [facility] ([place]) BUN 10 6 - 25 mg/dL [facility] Creatinine 0.69 0.60 - 1.10 mg/dL [facility] ([place]) Glucose 95 70 - 199 mg/dL [facility] ([place]) [...] 2022. Calcium 8.7 8.5 - 10.3 mg/dL [facility] ([place]) Blood 08/30/2024 4:42 AM CDT 08/30/2024 4:54 AM CDT Jeanine ALBERT LAB BLOOD ORDERABLES Final Result [facility] ([place]) 1 [facility] [place] [address] * eGFR (08/29/2024 4:58 AM CDT) eGFR 74 >=60 mL/min/1. 73 m2 Comment: [...] Jeanine ALBERT LAB BLOOD ORDERABLES Final Result [facility] ([place] 1 [facility] Department [place] [address] * (ABNORMAL) CBC without differential (08/29/2024 4:58 AM CDT) [facility] WBC 6.02 3.80 - 9.90 K/cumm Hgb [...] ORDERABLES Final Result [facility] ([place]) 1 [facility] Department [place] [address] * Basic metabolic panel (08/29/2024 4:58 AM CDT) [facility] Sodium 139 135 - 145 mmol/L Potassium, pl 4.0 3.3 - 4.9 mmol/L [facility] ([place]) Chloride 106 97 - 110 mmol/L [facility] ([place]) CO2 26 22 - 32 mmol/L [facility] ([place]) Anion gap 8 2 - 15 mmol/L [facility] ([place]) BUN 11 6 - 25 mg/dL [facility] ([place]) Creatinine 0.88 0.60 - 1.10 mg/dL [facility] ([place]) Glucose 102 70 - 199 mg/dL [facility] ([place]) Comment: Interpretive Data Fasting glucose >/= [...] 2022. Calcium 8.5 8.5 - 10.3 mg/dL [facility] ([place]) Blood 08/29/2024 4:58 AM CDT 08/29/2024 5:20 AM CDT us Jeanine ALBERT LAB BLOOD ORDERABLES Final Result [facility] ([place]) 1 [facility] Department [place] [address] * eGFR (08/28/2024 4:46 AM CDT) eGFR [...] Jeanine ALBERT LAB BLOOD ORDERABLES Final Result [facility] ([place] 1 [facility] Department [place] [address] * (ABNORMAL) CBC without differential (08/28/2024 4:46 AM CDT) WBC 6.77 3.80 - 9.90 K/cumm Hgb 8.9(L) 11.9 - 15.5 g/dL [facility] ([place]) Hct 27.9(L) 35.6 - 45.5 % [facility] ([place]) Plt 194 150 - 400 K/cumm [...] - 0.01 K/cumm [facility] ([place]) Blood 08/28/2024 4:46 AM CDT 08/28/2024 4:55 AM CDT Jeanine ALBERT LAB BLOOD ORDERABLES Final Result [facility] ([place] 1 [facility] [place] [address] * Basic metabolic panel (08/28/2024 4:46 AM CDT) [facility] Sodium 142 135 - 145 mmol/L Potassium, pl 3.9 3.3 - 4.9 mmol/L [facility] ([place]) Chloride 109 97 - 110 mmol/L [facility] ([place]) CO2 24 22 - 32 mmol/L [facility] ([place]) Anion gap 10 2 - 15 mmol/L [facility] ([place]) BUN 10 6 - 25 mg/dL [facility] ([place]) Creatinine 0.86 0.60 - 1.10 mg/dL [facility] ([place]) Glucose 99 70 - 199 mg/dL [facility] ([place]) Comment: Interpretive Data Fasting glucose [...] 2022. Calcium 8.6 8.5 - 10.3 mg/dL [facility] ([place]) Blood 08/28/2024 4:46 AM CDT 08/28/2024 4:55 AM CDT Jeanine ALBERT LAB BLOOD ORDERABLES Final Result HEATH EM) 1 [facility] Department [place] [address] * eGFR (08/27/2024 7:33 AM CDT) [facility] eGFR >90 >=60 mL/min/1. 73 m2 Comment: [...] ALBERT LAB BLOOD ORDERABLES Final Result [facility] ([place]) 1 [facility] Department of Laboratories [place], [place] [address] * (ABNORMAL) CBC without differential (08/27/2024 7:33 AM CDT) Pathologist [facility] WBC 9.3 3.8 - 9.9 K/cumm Hgb [...] ([place]) MCHC 31.6(L) 32.3 - 35.7 g/dL [facility] RDW CV 15.9(H) 11.1 - 14.9 % [facility] ([place]) RDW SD 60.5(H) 35.7 - 48.1 fL [facility] ([place]) NRBC abs 0.00 0.00 - 0.01 K/cumm [facility] ([place]) Blood 08/27/2024 7:33 AM CDT 08/27/2024 7:47 AM CDT us Jeanine ALBERT LAB BLOOD ORDERABLES Final Result [facility] ([place] 1 [facility] Department [place] [address] * Basic metabolic panel (08/27/2024 7:33 AM CDT) Sodium 141 135 - 145 mmol/L Potassium, pl 4.1 3.3 - 4.9 mmol/L [facility] ([place]) Chloride 107 97 - 110 mmol/L [facility] ([place]) CO2 22 22 - 32 mmol/L [facility] Anion gap 11 2 - 15 mmol/L [facility] BUN 9 6 - 25 mg/dL [facility] ([place]) Creatinine 0.68 0.60 - 1.10 mg/dL [facility] ([place]) Glucose 113 70 - 199 mg/dL [facility] ([place]) Comment: Interpretive Data Fasting glucose [...] 2022. Calcium 8.5 8.5 - 10.3 mg/dL [facility] ([place]) Blood 08/27/2024 7:33 AM CDT 08/27/2024 7:47 AM CDT us Jeanine ALBERT LAB BLOOD ORDERABLES Final Result [facility] ([place]) [address] [place] [address] Department [place] [address] * Surgical pathology (08/26/2024 2:26 PM CDT) Tissue specimen (specimen) (Bone Fragment(s),) 08/26/2024 10:29 AM CDT Narrative PATHOLOGY [facility] ([place]) - 08/28/2024 11:50 AM CDT EPIC results best viewed via link to PDF [facility] Department of Pathology [address] [place] [id number] Note to Patients: This report may contain [...] Final Report Patient Name: MIRLANDE GUPTA Address: [address] [place] [address], [place] [address] Gender: F : 1960 (Age: 64) Service: Surgery Location: [facility] Hospital #: [id number] Patient Type: [facility] Taken: 08/26/2024 Received: 08/26/2024 Accessioned: 08/26/2024 [...] received in a single container labeled MIRLANDE ALONSO and right hip. It is a 4.8 cm in diameter femoral head and separate 10 cc aggregate of lindo gritty hemorrhagic cortical and cancellous bone. The articular surface of the femoral head shows degenerative changes of the cartilage with erosion and eburnation. The femoral neck margin is smooth. The specimen is bisected revealing no subchondral gross lesions. Soliciting Freight Agent sections are submitted in one cassette after decalcification. Sharri Smith R.N., P.A./Be Leigh M.D. REPORT IMAGES AND SCANNED DOCUMENTS, IF INCLUDED, ONLY VIEWABLE IN PDF VERSION OF REPORT The performance characteristics of some immunohistochemical stains, fluorescence in-situ hybridization tests and immunophenotyping by flow cytometry cited in this report (if any) were determined by the Surgical Pathology Department at [facility] as part of an ongoing quality assurance director program and in compliance with federally mandated [...] characteristics determined by the Surgical Pathology Department [facility]. It has not been cleared or approved by the U. S. Food and Drug Administration. Note for decalcified specimens: This assay has not been validated on decalcified tissues. Results should be interpreted with caution given the possibility of false negativity on decalcified specimens Donn Bahena MD LAB PATHOLOGY ORDERABLES Final Result [facility] ([place]) [address] [place] [address] * XR Pelvis Ortho View (08/26/2024 12:16 [...] Bam Andrea M.D. KR: TAB Report ID: [id number] Reading Location: [id number] Procedure Note Bam Andrea MD - 08/26/2024 [...] Bam Andrea M.D. KR: TAB Report ID: [id number] Reading Location: [id number] Jeanine ALBERT IMG XR PROCEDURES Fin al Result * FL Fluoroscopy < 1 Hour (08/26/2024 11:24 AM CDT) Narrative [facility] - 08/26/2024 11:24 AM CDT The images [...] was provided for procedure performed by Dr. Baehna. 10 intraoperative fluoroscopic images were obtained of the right hip in the frontal projection for right hip arthroplasty. There are surgical changes of right hip arthroplasty noted. IMPRESSION: Intraoperative fluoroscopy was provided for procedure performed by Dr. Bahena. THIS IS AN ELECTRONICALLY VERIFIED FINAL REPORT 08/26/2024 2:23 PM - Electronically signed by Analisa Camacho D.O. PS: PS Report ID: [id number] Reading Location: [id number] Procedure Note Analisa Camacho DO - 08/26/2024 [...] Analisa Camacho D.O. PS: PS Report ID: [id number] Reading Location: [place] [address] Donn Bahena MD IMG XR PROCEDURES Final Result * Spinal Block (08/26/2024 9:49 AM CDT) Narrative Daniel Naranjo CRNA - 08/26/2024 9:49 AM CDT Daniel Naranjo CRNA 08/26/2024 9:49 AM Spinal Block Patient location: OR Reason for block: primary anesthetic Staff: Placed by: [employer] SUPERVISOR:Daniel Naranjo CRNA Procedure prep: Preprocedure checklist: patient [...] patient tolerated procedure well with no complications Jr Hull MD ANESTHESIA ORDERABLES Fi nal [...] 8:11 AM CDT 08/26/2024 8:25 AM CDT us Karthikeyan Serrano MD LAB BLOOD ORDERABLES F inal Result Performing Organization Address [facility] Co de Phone Number [employer] ([place]) 1 [facility] [place] [address] * aPTT (08/26/2024 8:11 AM CDT) aPTT 33 28 - 38 sec [facility] ([place]) Comment: Interpretive Data Heparin therapeutic range: 66.0 - 100.0 seconds. Range based on correlation with therapeutic heparin activity range of 0.3 - 0.7 Units/mL. Current interpretive data was last revised on 2023. Blood 08/26/2024 8:11 AM CDT 08/26/2024 8:25 AM CDT us Donn Bahena MD LAB BLOOD ORDERABLES Fin al Result Performing Organization Address [facility] Co de Phone Number [employer] ([place]) [address] [facility] [place] [address] * Protime-INR (08/26/2024 8:11 AM CDT) PT 11.2 9.7 - 13.0 sec [facility] ([place]) INR 1.04 0.90 - 1.20 [facility] ([place]) Comment: Interpretive data Oral anticoagulant therapeutic ranges: Venous thromboembolism prophylaxis or treatment: 2.0-3.0 CARDIOLOGY Standard range: 2.0-3.0 High-intensity range: 2.5-3.5 Refer to indication-specific guidelines for appropriate target ranges for prosthetic heart valve replacement. Current interpretive data was last revised on 2019. Blood 08/26/2024 8:11 AM CDT 08/26/2024 8:25 AM CDT us Donn Bahena MD LAB BLOOD ORDERABLES Fin al Result Performing Organization Address [facility] Co de Phone Number [facility] ([place]) 1 [facility] [place] [address] * (ABNORMAL) Urinalysis reflex to microscopic and culture Urine (08/19/2024 5:00 AM CDT) Color, ur Yellow Yellow Clarity, ur Turbid(A) Clear [facility] ([place]) Specific gravity, ur 1.017 1.003 - 1.030 [facility] ([place]) pH, urine 6.0 [facility] ([place]) Comment: Interpretive Data U rine pH is affected by diet, medications, systemic acid-base disturbances, and renal tubular function. pH may affect urinary stone formation. For example, urine pH below 6.0 may help reduce the tendency for calcium phosphate stones and pH greater than 6.0 may reduce the tendency for uric acid stone formation. Source: [facility] Current Interpretive Data was last revised on [...] MICROBIOLOGY - GENER AL ORDERABLES Final Result [facility] ([place]) 1 [facility] [place] [address] * (ABNORMAL) Urinalysis, microscopic only (08/19/2024 5:00 AM CDT) WBC, ur 11-20(A) 0 - 5 /HPF RBC, ur 0-2 0 - 2 /HPF [facility] ([place]) Epithelial cells, squamous, ur >50(A) 0 - 5 /HPF [facility] ([place]) Bacteria, ur 4+(A) [facility] ([place]) Mucous, ur Present(A) [facility] ([place]) Culture Reflex Comment Reflex to urine culture will be performed. [facility] ([place]) Urine 08/19/2024 5:00 AM CDT 08/19/2024 7:14 AM CDT Donn Bahena MD LAB URINE ORDERABLES Fin al Result Performing Organization Address [facility] Co de Phone Number [facility] ([place]) 1 [facility] [place] [address] * (ABNORMAL) Urine culture Urine (08/19/2024 5:00 AM CDT) Report Final Report: Greater than or equal to 100,000 colonies/mL of Klebsiella pneumoniae (.) Comment:Testing performed by : [facility], 1 [place]., [address] Organism KLEBSIELLA PNEUMONIAE [facility] ([place]) Urine 08/19/2024 5:00 AM CDT 08/19/2024 10:02 AM CDT Narrative [facility] ([place]) - 08/21/2024 2:56 PM CDT Urine culture reflexed based upon urinalysis results. Testing performed by [facility] ([phone]) Organism Antibiotic Method Susceptibility Klebsiella pneumoniae Ampicillin [...] INTERPRETATION Susceptible Klebsiella pneumoniae Cefdinir INTERPRETATION Susceptible us Donn Bahena MD LAB MICROBIOLOGY - GENER AL ORDERABLES Final Result [facility] [place]) 1 [facility] Department [place] [address] * XR Chest Pa Lateral 2 Views [...] Bam Andrea M.D. KR: TAB Report ID: [id number] Reading Location: [id number] Procedure Note Bam Andrea MD - 08/21/2024 [...] Electronically signed by Bam Andrea M.D. KR: KR Report ID: [id number] Reading Location: [place] [address] us Donn Bahena MD IMG XR PROCEDURES Final [...] BLOOD ORDERABLES Fin al Result [facility] [place] 1 [facility] Department [place] [address] * Differential, auto (08/17/2024 9:42 AM CDT) [...] ORDERABLES Fin al Result Performing Organization Address [facility]/ZIP Co de Phone Number [facility] ([place]) 1 [facility] [place] [address] * (ABNORMAL) CBC with auto differential (08/17/2024 9:42 AM CDT) [facility] WBC 4.4 3.8 - 9.9 K/cumm Hgb [...] ([place]) MCHC 32.4 32.3 - 35.7 g/dL [facility] ([place]) RDW CV 16.8(H) 11.1 - 14.9 % [facility] ([place]) RDW SD 62.4(H) 35.7 - 48.1 fL [facility] ([place]) NRBC abs 0.00 0.00 - 0.01 K/cumm [facility] ([place]) Blood 08/17/2024 9:42 AM CDT 08/17/2024 9:57 AM CDT us Donn Bahena MD LAB BLOOD ORDERABLES Fin al Result Performing Organization Address [facility]/ZIP Co de Phone Number [facility] ([place]) 1 [facility] [place] [address] * aPTT (08/17/2024 9:42 AM CDT) [facility] aPTT 34 28 - 38 sec [facility] ([place]) Comment: Interpretive Data Heparin therapeutic range: 66.0 - 100.0 seconds. Range based on correlation with therapeutic heparin activity range of 0.3 - 0.7 Units/mL. Current interpretive data was last revised on 2023. Blood 08/17/2024 9:42 AM CDT 08/17/2024 9:57 AM CDT Donn Bahena MD LAB BLOOD ORDERABLES Fin al Result Performing Organization Address [facility] Co de Phone Number [facility] ([place]) 1 [facility] [place] [address] * Protime-INR (08/17/2024 9:42 AM CDT) [facility] PT 11.7 9.7 - 13.0 sec [facility] ([place]) INR 1.08 0.90 - 1.20 [facility] ([place]) Comment: Interpretive data Oral anticoagulant therapeutic ranges: Venous thromboembolism prophylaxis or treatment: 2.0-3.0 CARDIOLOGY Standard range: 2.0-3.0 High-intensity range: 2.5-3.5 Refer to indication-specific guidelines for appropriate target ranges for prosthetic heart valve replacement. Current interpretive data was last revised on 2019. Blood 08/17/2024 9:42 AM CDT 08/17/2024 9:57 AM CDT Donn Bahena MD LAB BLOOD ORDERABLES Fin al Result Performing Organization Address [facility] Co de Phone Number [facility] ([place]) 1 [facility] [place] [address] * Hemoglobin A1c (08/17/2024 9:42 AM CDT) Pathologist [facility] Hgb A1C 4.9 4.0 - 5.6 % Estimated Average Glucose 94 mg/dL [facility] ([place]) Comment: The ADA recommends reporting an estimated Average Glucose (eAG) with all Hemoglobin A1c results using the equation derived from a study of 507 normal and diabetic adults. Minority populations were underrepresented and children were not included. (Diabetes Care 31:6369-7625, 2007). The eAG is not equivalent to a fasting glucose. Blood 08/17/2024 9:42 AM CDT 08/17/2024 9:57 AM CDT us Donn Bahena MD LAB BLOOD ORDERABLES Fin al Result [facility] ([place]) 1 [facility] Department [place] [address] * Comprehensive metabolic panel (08/17/2024 9:42 AM CDT) Sodium 142 135 - 145 mmol/L Potassium, pl 4.7 3.3 - 4.9 mmol/L [facility] ([place]) Chloride 106 97 - 110 mmol/L [facility] ([place]) CO2 25 22 - 32 mmol/L [facility] ([place]) Anion gap 11 2 - 15 mmol/L [facility] ([place]) BUN 11 6 - 25 mg/dL [facility] ([place]) Creatinine 0.77 0.60 - 1.10 mg/dL [...] Fin al Result [facility] ([place]) 1 [facility] [place] [address] from Last 3 Months Insurance [id number] [place] Advance Directives For more information, please contact: [phone] * Full Code (Latest Code Status on File) Date Activated Date Inactivated Comments 08/26/2024 2:16 PM 09/02/2024 11:51 PM * Full Code Date Activated Date Inactivated Comments 05/02/2022 1:50 PM 05/03/2022 4:42 PM Care Teams Lock Master Relationship Specialty Start Date End Date Be Higginbotham MD PCP - General 07/14/21 Donn Bahena MD [address] [place] [address] Surgeon Orthopedic Surgery 05/03/22 Matthew Crouch OT Occupational Therapist Occupational Therapy 08/21/24 Jeanine Wilson PA [address] [place] [address] Physician Labor Relations Analyst Orthopedic Surgery 09/17/24
--- OUTSIDE RECORDS SUMMARY | 2024-10-28 09:51 | XMS_ITS | Clinical Summary ---
Author Organization [facility] Address [address] [place] [address] Phone Care Team Providers Care Speech Writer Name Role Phone Unavailable Primary Care Provider Unavailabl e Social History Tobacco Use Types Packs/Day Years Used Date Smoking Tobacco: Never Assessed Comments Unknown Sex and Gender Information Value Date Recorded Sex Assigned at Not on file Legal Sex Female 2:29 PM [employer] Gender Identity Not on file Sexual Orientation Not on file Plan of Treatment Health Maintenance Due Date Last Done Comments DTAP/TDAP/TD VACCINES (1 - Tdap) 1980 HPV/Cotest (21-29) 1982 CERVICAL CANCER SCREENING 1991 HPV/Cotest (30-65) 1991 PAP SMEAR 1991 BREAST CANCER SCREENING 2001 COLORECTAL SCREENING 2006 Colorectal Cancer Screening 2006 FIT-DNA Q 3 years 2006 FIT/FOBT Q 1 year 2006 Flex Sig/CT Colonography Q 5 years 2006 ZOSTER VACCINE (1 of 2) 2011 INFLUENZA VACCINE (#1) 2023 RSV VACCINE (60+ or ) (1 - 1-dose 75+ series) 2036
--- OUTSIDE RECORDS SUMMARY | 2024-10-28 09:51 | XMS_ITS | Data Portability ---
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 magaña at [facility] Not available 06/18/2024 11:04:49 Plan of Treatment Reminders Order Date Submit Date Provider Last Modified By Organization Details Last Modified Time Details Appointments ANY 15 2024 08:00A M BETY Hogue Not available Not available Not available Lab lipid panel, serum 2024 025 SILVIO [facility], [address], [place], [address], 10/22/2024 15:08:14 CMP, serum or plasma 2024 025 SILVIO [facility], [address], [place], [address], 10/22/2024 15:08:15 CBC w/ auto diff 2024 025 SILVIO [facility], [address], [place], [address], 10/22/2024 15:08:18 vitami n B12 + folate , serum or blood 2024 025 AUSTIN [facility], [address], [place], [address], 10/22/2024 15:08:17 TSH + free T4, serum 2024 025 SILVIO Johnson, [address], [address], [place], [address], 10/22/2024 15:08:13 T3, free, serum or plasma 2024 025 SILVIO Johnson, [address], [place], [address], 10/22/2024 15:08:19 lipid panel, serum 2023 024 SILVIO Johnson, [address], [place], [address], 04/24/2024 10:14:28 CMP, serum or plasma 2023 024 SILVIO Johnson, [address], [place], [address], 04/24/2024 10:14:29 CBC w/ auto diff 2023 024 SILVIO Johnson, [address], [address], [place], [address], 04/24/2024 10:14:33 vitami n B12 + folate , serum or blood 2023 024 SILVIO Johnson, [address], [place], [address], 04/24/2024 10:14:30 insuli n, serum 2023 024 SLIVIO Johnson, [address], [address], [place], [address], 04/24/2024 10:14:32 TSH + free T4, serum 2023 024 SILVIO Johnson, [address], [place], [address], 04/24/2024 10:14:26 T3, free, serum or plasma 2023 024 A[place]IN [facility], [address], [place], [address], 04/24/2024 10:14:34 Referral hand surgeo n referr al 2024 025 [facility] Nanci Guerra MD, [address], [address], [place], [address], 10/14/2024 15:30:41 physic al therap ist referr al 2024 025 [facility] Margie, [address] [facility], [place], [address], 07/10/2024 09:49:45 neurol ogical surgeo n referr felipe - wendy t [facility]. 2023 025 syed Escobar MD, [address], [address], [place], [address], 09/26/2024 11:30:08 Procedures nerve conduc tion study/ EMG, upper extrem ity (PROC) - can this please be added on Jul 24 same day as Lower ext. EMG/NC S. We need UE also 2024 025 [facility] [place], [address] [facility], [place], [address], 07/24/2024 18:11:54 Surgeries None record ed. Imaging electr ocardi ogram 2024 025 [email or web address] In-Office Order, Internal Use Only DO Not Attach Compendium DO Not Attach Compendium, Do Not Delete/merge, [id number] 08/27/2024 10:16:00 MRI, brain, w/wo contra st 2024 025 [email or web address] [facility], [address], [address], [place], [address], 07/26/2024 14:42:44 Medication Orders mecliz ine 25 mg tablet 2023 025 AUSTIN [facility], [address] [facility], [place], [address], 06/18/2024 10:49:44 Patient TargetsNo targets recorded. Patient Instructions Encounter Date Encounter Id Patient Instructions Last Modified By Organization Details Last Modified Time 04/01/2024 [id number] A healthy lifestyle: care instructions [email or web address] Not available 04/01/2024 10:46:18 09/26/2024 [id number] A healthy lifestyle: care instructions Not available 09/26/2024 09:32:10 Reason for Referral Neurological Surgeon Referra l for Spinal stenosis of lumbar region patient had previous MRI lumbar spine at [facility] from pain management group. Referring Physician: Tosin Metcalf, Internal Medicine, Encounter Date: 04/01/2024 Physical Therapist Referral for Pain of bilateral hands Referring Physician: Tosin Metcalf Internal Medicine, Encounter Date: 06/18/2024 Hand Surgeon Referral for Bi lateral carpal tunnel syndrome Referring Physician: Tosin Metclaf Internal Medicine, Encounter Date: 09/26/2024 Results Created Date Observation Date Name Description Value Unit Range Abnormal Flag Note LastModifiedBy Organization Detail LastModifiedTime 04/23/2004/24/2024 TSH+F REE T4 TSH 5.730 uIU/m L 0.450- 4.500 above high normal Not Available [facility] [address], [place], [address], 04/24/2024 10:14:26 04/23/20 24 04/24/2024 TSH+F REE T4 T4,free(dire ct) 1.57 NG/dL 0.82-1 .77 Not Available [facility] [address] [facility], [place], [address], 04/24/2024 10:14:26 04/23/20 24 04/24/2024 LIPID PANEL WITH LDL/H DL RATIO cholesterol, total 167 mg/dL 100-19 9 Not Available [facility] [address] [place], [address], 04/24/2024 10:14:28 04/23/20 24 04/24/2024 LIPID PANEL WITH LDL/H DL RATIO triglyceride s 81 mg/dL 0-149 Not Available [facility] [address] [place], [address], 04/24/2024 10:14:28 04/23/20 24 04/24/2024 LIPID PANEL WITH LDL/H DL RATIO HDL cholesterol 51 mg/dL >39 Not Available [facility] [address] [facility], [place], [address], 04/24/2024 10:14:28 04/23/20 24 04/24/2024 LIPID PANEL WITH LDL/H DL RATIO VLDL cholesterol homer 15 mg/dL 5-40 Not Available [facility] [address] [place], [address], 04/24/2024 10:14:28 04/23/20 24 04/24/2024 LIPID PANEL WITH LDL/H DL RATIO LDL chol calc ([facility]) 101 mg/dL 0-99 above high normal Not Available [facility] [address] [place], [address], 04/24/2024 10:14:28 04/23/20 24 04/24/2024 LIPID PANEL WITH LDL/H DL RATIO LDL/HDL ratio 2.0 ratio 0.0-3. 2 LDL/H DL Ratio Men Women 1/2 Avg.R isk 1.0 1.5 Avg.R isk 3.6 3.2 2X Avg.R isk 6.2 5.0 3X Avg.R isk 8.0 6.1 Not Available [facility] [address] [facility] [place], [address], 04/24/2024 10:14:28 04/23/20 24 04/24/2024 COMP. METAB OLIC PANEL (14) glucose 84 mg/dL 70-99 Not Available [facility] [address] [facility] [place], [address], 04/24/2024 10:14:29 04/23/20 24 04/24/2024 COMP. METAB OLIC PANEL (14) BUN 13 mg/dL 8-27 Not Available [facility] [address] [facility] [place], [address], 04/24/2024 10:14:29 04/23/20 24 04/24/2024 COMP. METAB OLIC PANEL (14) creatinine 0.74 mg/dL 0.57-1 .00 Not Available [facility] [address] [facility] [place], [address], 04/24/2024 10:14:29 04/23/20 24 04/24/2024 COMP. METAB OLIC PANEL (14) eGFR 91 mL/mi n/1.7 3 >59 Not Available [facility] [address] [place], [address], 04/24/2024 10:14:29 04/23/20 24 04/24/2024 COMP. METAB OLIC PANEL (14) BUN/creatini ne ratio 18 12-28 Not Available [facility] [address] [place], [address], 04/24/2024 10:14:29 04/23/20 24 04/24/2024 COMP. METAB OLIC PANEL (14) sodium 142 mmol/ L 134-14 4 Not Available [facility] [address] [place], [address], 04/24/2024 10:14:29 04/23/20 24 04/24/2024 COMP. METAB OLIC PANEL (14) potassium 4.8 mmol/ L 3.5-5. 2 Not Available [facility] [address] [place], [address], 04/24/2024 10:14:29 04/23/20 24 04/24/2024 COMP. METAB OLIC PANEL (14) chloride 104 mmol/ L 96-106 Not Available [facility] [address] [place], [address], 04/24/2024 10:14:29 04/23/20 24 04/24/2024 COMP. METAB OLIC PANEL (14) carbon dioxide, total 25 mmol/ L Not Available [facility] [address] [place], [address], 04/24/2024 10:14:29 04/23/20 24 04/24/2024 COMP. METAB OLIC PANEL (14) calcium 9.5 mg/dL 8.7-10 .3 Not Available [facility] [address] [place], [address], 04/24/2024 10:14:29 04/23/20 24 04/24/2024 COMP. METAB OLIC PANEL (14) protein, total 6.4 g/dL 6.0-8. 5 Not Available [facility] [address] [place], [address], 04/24/2024 10:14:29 04/23/20 24 04/24/2024 COMP. METAB OLIC PANEL (14) albumin 4.2 g/dL 3.9-4. 9 Not Available [facility] [address] [place], [address], 04/24/2024 10:14:29 04/23/20 24 04/24/2024 COMP. METAB OLIC PANEL (14) globulin, total 2.2 g/dL 1.5-4. 5 Not Available [facility] [address] [facility], [place], [address], 04/24/2024 10:14:29 04/23/20 24 04/24/2024 COMP. METAB OLIC PANEL (14) bilirubin, total 0.3 mg/dL 0.0-1. 2 Not Available [facility] [address] [facility], [place], [address], 04/24/2024 10:14:29 04/23/20 24 04/24/2024 COMP. METAB OLIC PANEL (14) alkaline phosphatase 70 IU/L 44-121 Not Available [facility] [address] [facility], [place], [address], 04/24/2024 10:14:29 04/23/20 24 04/24/2024 COMP. METAB OLIC PANEL (14) AST (SGOT) 21 IU/L 0-40 Not Available [facility] [address] [facility], [place], [address], 04/24/2024 10:14:29 04/23/20 24 04/24/2024 COMP. METAB OLIC PANEL (14) ALT (SGPT) 17 IU/L 0-32 Not Available [facility] [address] [facility], [place], [address], 04/24/2024 10:14:29 04/23/20 24 04/24/2024 VITAM IN B12 AND FOLAT E vitamin B12 300 pg/mL 232-12 45 Not Available [facility] [address] [facility], [place], [address], 04/24/2024 10:14:30 04/23/20 24 04/24/2024 VITAM IN B12 AND FOLAT E folate (folic acid), serum >20.0 NG/mL >3.0 A serum folat e amanda ntrat ion of less than 3.1 ng/mL is consi dered to repre sent clini homer defic iency . Not Available [facility] [address] [facility], [place], [address], 04/24/2024 10:14:30 04/23/20 24 04/24/2024 INSUL IN insulin 8.7 uIU/m L 2.6-24 .9 Not Available [facility] [address] [place], [address], 04/24/2024 10:14:31 04/23/20 24 04/24/2024 CBC WITH DIFFE RENTI AL/PL ATELE T WBC 4.5 x10e3 /uL 3.4-10 .8 Eff ectiv e Decem steffany 2023 profi le 15051 5 WBC will be made* * non-o rdera ble as a stand -marga e order code. Not Available [facility] [address] [facility], [place], [address], 04/24/2024 10:14:33 04/23/20 24 04/24/2024 CBC WITH DIFFE RENTI AL/PL ATELE T RBC 4.06 x10e6 /uL 3.77-5 .28 Not Available [facility] [address] [place], [address], 04/24/2024 10:14:33 04/23/20 24 04/24/2024 CBC WITH DIFFE RENTI AL/PL ATELE T hemoglobin 12.5 g/dL 11.1-1 5.9 Not Available [facility] [address] [place], [address], 04/24/2024 10:14:33 04/23/20 24 04/24/2024 CBC WITH DIFFE RENTI AL/PL ATELE T hematocrit 39.9 % 34.0-4 6.6 Not Available [facility] [address] [place], [address], 04/24/2024 10:14:33 04/23/20 24 04/24/2024 CBC WITH DIFFE RENTI AL/PL ATELE T MCV 98 fL 79-97 above high normal Not Available [facility] [address] [place], [address], 04/24/2024 10:14:33 04/23/20 24 04/24/2024 CBC WITH DIFFE RENTI AL/PL ATELE T MCH 30.8 pg 26.6-3 3.0 Not Available [facility] [address] [place], [address], 04/24/2024 10:14:33 04/23/20 24 04/24/2024 CBC WITH DIFFE RENTI AL/PL ATELE T MCHC 31.3 g/dL 31.5-3 5.7 below low normal Not Available [facility] [address] [place], [address], 04/24/2024 10:14:33 04/23/20 24 04/24/2024 CBC WITH DIFFE RENTI AL/PL ATELE T RDW 12.9 % 11.7-1 5.4 Not Available [facility] [address] [place], [address], 04/24/2024 10:14:33 04/23/20 24 04/24/2024 CBC WITH DIFFE RENTI AL/PL ATELE T platelets 270 x10e3 /uL 150-45 0 Not Available [facility] [address] [place], [address], 04/24/2024 10:14:33 04/23/20 24 04/24/2024 CBC WITH DIFFE RENTI AL/PL ATELE T neutrophils 61 % notest ab. Not Available [facility] [address] [facility], [place], [address], 04/24/2024 10:14:33 04/23/20 24 04/24/2024 CBC WITH DIFFE RENTI AL/PL ATELE T lymphs 20 % notest ab. Not Available [facility] [address] [facility], [place], [address], 04/24/2024 10:14:33 04/23/20 24 04/24/2024 CBC WITH DIFFE RENTI AL/PL ATELE T monocytes 7 % notest ab. Not Available [facility] [address] [facility], [place], [address], 04/24/2024 10:14:33 04/23/20 24 04/24/2024 CBC WITH DIFFE RENTI AL/PL ATELE T eos 11 % notest ab. Not Available [facility] [address] [facility], [place], [address], 04/24/2024 10:14:33 04/23/20 24 04/24/2024 CBC WITH DIFFE RENTI AL/PL ATELE T basos 1 % notest ab. Not Available [facility] [address] [facility], [place], [address], 04/24/2024 10:14:33 04/23/20 24 04/24/2024 CBC WITH DIFFE RENTI AL/PL ATELE T neutrophils (absolute) 2.7 x10e3 /uL 1.4-7. 0 Not Available [facility] [address] [facility], [place], [address], 04/24/2024 10:14:33 04/23/20 24 04/24/2024 CBC WITH DIFFE RENTI AL/PL ATELE T lymphs (absolute) 0.9 x10e3 /uL 0.7-3. 1 Not Available [facility] [address] [facility], [place], [address], 04/24/2024 10:14:33 04/23/20 24 04/24/2024 CBC WITH DIFFE RENTI AL/PL ATELE T monocytes(ab solute) 0.3 x10e3 /uL 0.1-0. 9 Not Available [facility] [address] [facility], [place], [address], 04/24/2024 10:14:33 04/23/20 24 04/24/2024 CBC WITH DIFFE RENTI AL/PL ATELE T eos (absolute) 0.5 x10e3 /uL 0.0-0. 4 above high normal Not Available [facility] [address] [facility], [place], [address], 04/24/2024 10:14:33 04/23/20 24 04/24/2024 CBC WITH DIFFE RENTI AL/PL ATELE T baso (absolute) 0.1 x10e3 /uL 0.0-0. 2 Not Available [facility] [address] [facility], [place], [address], 04/24/2024 10:14:33 04/23/20 24 04/24/2024 CBC WITH DIFFE RENTI AL/PL ATELE T immature granulocytes 0 % notest ab. Not Available [facility] [address] [facility], [place], [address], 04/24/2024 10:14:33 04/23/20 24 04/24/2024 CBC WITH DIFFE RENTI AL/PL ATELE T immature grans (abs) 0.0 x10e3 /uL 0.0-0. 1 Not Available [facility] [address] [facility], [place], [address], 04/24/2024 10:14:33 04/23/20 24 04/24/2024 TRIIO DOTHY WAYNE E (T3), FREE triiodothyro nine (T3), free 1.8 pg/mL 2.0-4. 4 below low normal Not Available [facility] [address] [facility], [place], [address], 04/24/2024 10:14:34 07/24/19 25 07/24/2024 nerve condu ction study /EMG, upper extre mity (PROC ) No observ ation record ed. SILVIO Not Available 2024 14:27:30 07/25/19 25 07/24/2024 MRI, lumba r spine , w/o contr ast No observ ation record ed. [address], [place], [address], 07/26/2024 14:27:54 [facility] No observ ation record ed. [email or web address] In-Office Order Internal Use Only DO Not Attach Compendium DO Not Attach Compendium, Do Not Delete/merge, [id number] 08/22/2024 17:58:28 08/23/19 25 08/22/2024 [facility] am No observ ation record ed. A[place]IN In-Office Order Internal Use Only DO Not Attach Compendium DO Not Attach Compendium, Do Not Delete/merge, [id number] 08/22/2024 18:57:21 Result Notes None recorded. Problems Name Problem SNOMED Code Status Onset Date Resolution Date Notes Provider Name and Address Organization Details Recorded Time Long-term drug therapy Active 2023 BETY Hogue Attn: Sandra almaguer,[address] [facility], [place], [address], [facility] 4 09:10:11 Peripheral neuropathic pain 588938049 Active 2023 BETY Hogue Attn: Sandra almaguer,[address] [facility], [place], [address], [facility] 4 09:10:12 Anxiety 55017998 Active 2023 BETY Hogue Attn: Accountin g,[address] [facility], [place], [address], [place] [facility] 4 09:10:13 Obesity 218990572 Active 2023 BETY Hogue Attn: Accountin g,[address] [place], [address], [place] [facility] 4 09:10:14 Body mass index 40+ - severely obese 583137315 Active 2023 BETY Hogue Attn: Accountin g,[address] [place], [address], [place] [facility] 4 09:10:15 Hypothyroid ism 24964087 Active 2023 BETY Hogue Attn: Accountin g,[address] [place], [address], [place] [facility] 4 09:10:17 Dyslipidemi a 014275145 Active 2023 BETY Hogue Attn: Accountin g,[address] [place], [address], [place] [facility] 4 09:10:17 Pain in bilateral lower legs 8101537115519 9106 Active 2023 BETY Hogue Attn: Accountin g,[address] [place], [address], [place] [facility] 4 16:05:49 History of total hip arthroplast y 269672742947 Active 2023 BETY Hogue Attn: Accountin g,[address] [place], [address], [place] [facility] 4 10:39:24 Lumbar spondylosis 569446401 Active 2023 BETY Hogue Attn: Accountin g,[address] [place], [address], [place] [facility] 4 19:05:50 Spinal stenosis of lumbar region 93030925 Active 2023 BETY Hogue Attn: Accountin g,[address] [facility], [place], [address], [place] [facility] 4 19:05:51 Vitamin B12 deficiency (non anemic) 01477452 Active 2023 BETY Hogue Attn: Accountin g,[address] [facility], [place], [address], [place] [facility] 4 19:05:57 Vitamin D deficiency 35330889 Active 2023 BETY Hogue Attn: Accountin g,[address] [facility], [place], [address], [place] [facility] 4 19:05:58 Dizziness 079535135 Active 2023 BETY Hogue Attn: Accountin g,[address] [facility], [place], [address], [place] [facility] 4 19:06:04 Pain of bilateral hands 1682143108495 9109 Active 2024 BETY Hogue Attn: Accountin g,[address] [facility], [place], [address], [place] [facility] 5 17:06:54 Numbness of hand 974109465 Active 2024 BETY Hogue Attn: Accountin g,[address] [place], [address], [place] [facility] 5 17:06:55 Paresthesia 49452006 Active 2024 BETY Hogue Attn: Accountin g,[address] [place], [address], [place] [facility] 5 17:07:54 Bilateral carpal tunnel syndrome 9029315515196 9101 Active 2024 BETY Hogue Attn: Sandra almaguer,[address] [facility], [place], [address], [facility] 18:33:32 Problem Notes None recorded. Procedures Surgical History Date Name Laterality Status Provider Name and Address Organization Details Recorded Time total replacement of right hip joint completed Georgina Hood MA [facility] 09/26/2024 09:05:10 Joint Replacement completed Fifi Harmon MA [place] [facility] 09/28/2023 09:55:18 Imaging Results None recorded. Procedure Notes None recorded. Medical Equipment None Reported. Allergies No known drug allergies Medications Name Sig Start Date Stop Date Status Note LastModified by Organization Details LastModified Time celecoxib 200 mg capsule TAKE 1 CAPSULE BY MOUTH TWICE DAILY active Not Available Not Available No t Available fluoxetine 40 mg capsule TAKE 2 CAPSULES BY MOUTH ONCE DAILY active Not Available Not Available No t Available methocarbam ol 500 mg tablet TAKE 1 TABLET BY MOUTH TWICE DAILY 06/18 completed Not Available Not Available Not Available hydrocodone 5 mg-acetamin ophen 325 mg tablet TAKE 1 TABLET BY MOUTH EVERY 6 HOURS NEEDED FOR PAIN 06/18 completed Not Available Not Available Not Available Synthroid 125 mcg tablet TAKE 1 TABLET BY MOUTH IN THE MORNING 2024 active Not Available Not Available Not Avai lable spironolact one 100 mg tablet TAKE 1 TABLET BY MOUTH TWICE DAILY active Not Available Not Available No t Available ciprofloxac in 500 mg tablet TAKE 1 TABLET BY MOUTH EVERY 12 HOURS 09/26 completed Not Available Not Available Not Available meloxicam 7.5 mg tablet TAKE 1 TABLET BY MOUTH TWICE DAILY WITH MEALS FOR 15 DAYS 06/18 completed Not Available Not Available Not Available meclizine 25 mg tablet TAKE 1 TABLET BY MOUTH THREE TIMES DAILY NEEDED 06/18 completed Not Available Not Available Not Available cyanocobala min (vit B-12) 1,000 mcg/mL injection solution INJECT 1 ML SUBCUTANE OUSLY ONCE EVERY MONTH active Not Available Not Available No t Available levothyroxi ne 200 mcg tablet TAKE 1 TABLET BY MOUTH ONCE DAILY 09/27 completed Not Available Not Available Not Available Synthroid 112 mcg tablet TAKE 1 TABLET BY MOUTH ONCE DAILY 11/23 completed Not Available Not Available Not Available ergocalcife rol (vitamin D2) 1,250 mcg (50,000 unit) capsule TAKE 1 CAPSULE BY MOUTH ONCE A WEEK active Not Available Not Available No t Available methylpredn isolone 4 mg tablets in a dose pack TAKE BY MOUTH DIRECTED ON INSIDE OF PACKAGE 09/27 completed Not Available Not Available Not Available naproxen 500 mg tablet TAKE 1 TABLET BY MOUTH TWICE DAILY NEEDED FOR PAIN active Not Available Not Available No t Available bupropion HCl XL 300 mg 24 hr tablet, extended release TAKE 1 TABLET BY MOUTH ONCE DAILY active Not Available Not Available No t Available bupropion HCl XL 150 mg 24 hr tablet, extended release TAKE 1 TABLET BY MOUTH ONCE DAILY 06/18 completed Not Available Not Available Not Available pregabalin 75 mg capsule TAKE 1 CAPSULE BY MOUTH TWICE DAILY active Not Available Not Available No t Available pregabalin 150 mg capsule TAKE 1 CAPSULE BY MOUTH THREE TIMES DAILY 06/06 completed Not Available Not Available Not Available semaglutide (weight loss) 1 mg/0.5 mL subcutaneou s pen injector Inject by subcutane ous route. 06/18 completed Not Available Not Available Not Available Vitals Date Recorded Body height Respiratory rate Oxygen saturation Oxygen saturation in Arterial blood by Pulse oximetry Heart rate Systolic blood pressure Diastolic blood pressure Provider Name and Address Organization Details Last Updated DateTime 5 160.02 cm 18 /min 98 % 98 % 68 /min 126 mm[Hg] 82 mm[Hg] Fifi Harmon MA [facility] 5 10:46:52 Date Recorded Body height Provider Name an d Address Organization Details Last Updated DateTime 08/22/2024 160.02 cm Rachell Reed LPN [facility] 08/23/19 25 17:54:12 Date Recorded Respiratory rate Systolic blood pressure Diastolic blood pressure Provider Name and Address Organization Details Last Updated DateTime 09/26/2024 16 /min 110 mm[Hg] 80 mm[Hg] BETY Hogue Attn: Accounting, [address] [place], [address], [facility] 09/26/2024 09:27:20 Date Recorded Body height Body mass index (BMI) Body weight Heart rate Oxygen saturation Oxygen saturation in Arterial blood by Pulse oximetry Systolic blood pressure Diastolic blood pressure Provider Name and Address Organization Details Last Updated DateTime 5 160.02 cm 36.7 kg/m2 22064.6 2 g 64 /min 95 % 95 % 128 mm[Hg] 84 mm[Hg] Georgina Hood MA [facility] 5 09:10:01 Date Recorded Body height Body mass index (BMI) Body weight Heart rate Respiratory rate Body temperature Systolic blood pressure Diastolic blood pressure Provider Name and Address Organization Details Last Updated DateTime 4 160.02 cm 39.2 kg/m2 961866. 99 g 79 /min 16 /min 97.7 [degF] 133 mm[Hg] 81 mm[Hg] Kim Robbins MA [facility] 4 14:12:45 Date Recorded Systolic blood pressure Diastolic blood pressure Provider Name and Address Organization Details Last Updated DateTime 04/01/2024 122 mm[Hg] 80 mm[Hg] BETY Hogue Attn: Accounting,[address] [place], [address], [facility] 04/01/2024 10:47:24 Date Recorded Body height Body mass index (BMI) Body weight Respiratory rate Oxygen saturation Oxygen saturation in Arterial blood by Pulse oximetry Heart rate Systolic blood pressure Diastolic blood pressure Provider Name and Address Organization Details Last Updated DateTime 4 160.02 cm 42.3 kg/m2 253039. 58 g 18 /min 100 % 100 % 64 /min 138 mm[Hg] 78 mm[Hg] Fifi Harmon MA [facility] 4 10:23:28 Social History Question Answer Notes LastModified by Organizat ion Details LastModified Time Tobacco Smoking Status Never Smoker Fifi Harmon MA null, [facility] 09/26/2023 16:07:08 Do You Have An Advance Directive? No Information not available 09/26/2023 Are You Blind Or Do You Have Difficulty Seeing? No Information not available 09/26/2023 What Is Your Level Of Caffeine Consumption? Occasional Soda/tea Information not available 09/26/2023 In The 14 Days Before Symptom Onset, Have You Had Close Contact With A Laboratory-confir med COVID-19 While That Case Was Ill? No Information not available 09/26/2023 In The 14 Days Before Symptom Onset, Have You Had Close Contact With A Person Who Is Under Investigation For COVID-19 While That Person Was Ill? No Information not available 09/26/2023 Have You Been To An Area Known To Be High Risk For COVID-19? No Information not available 09/26/2023 Are You Deaf Or Do You Have Serious Difficulty Hearing? No Information not available 09/26/2023 What Type Of Diet Are You Following? REGULAR Information not available 09/26/2023 Are There Any Guns Present In Your Home? No Information not available 09/26/2023 What Was The Date Of Your Most Recent Tobacco Screening? 09/26/2024 cyahlma Information not available 09/26/2024 What Is Your Relationship Status? Information not available 09/26/2023 Do You Use Your Seat Belt Or Car Seat Routinely? Yes Information not available 09/26/2023 Do You Have Smoke And Carbon Monoxide Detectors In Your Home? Yes Information not available 09/26/2023 Do You Use Sunscreen Routinely? Yes Information not available 09/26/2023 Has Tobacco Cessation Counseling Been Provided? Yes Information not available 09/26/2023 On What Date Was Tobacco Cessation Counseling Provided? 06/18/2024 Information not available 06/18/2024 Sex: Female Functional Status Question Answer Note LastModified by Organizat ion Details LastModified Time Do you use any illicit or recreational drugs? No Information not available 09/26/2023 Do you or have you ever used any other forms of tobacco or nicotine? No Information not available 09/26/2023 What is your level of alcohol consumption? Occasional Information not available 09/26/2023 Are you able to care for yourself? Yes Information n ot available 09/26/2023 What is your exercise level? None Information not available 09/26/2023 Mental Status Question Answer Note LastModified by Organization D etails LastModified Time Do you feel stressed (tense, restless, nervous, or anxious, or unable to sleep at night)? [id number] Information not available 09/26/2023 Family History Relationship Description Onset Age of this Age Resolved Age Notes LastModified by Organization Details LastModified Time Mother Harmful pattern of use of alcohol [email or web address] Not available 2023 09:55:27 Mother Hypertensive disorder tcarterma Not available 2023 09:55:32 Mother Osteoporosis [email or web address] Not avai lable 09/28/2023 09:55:37 Medical History Condition Response Anxiety Disorder Y Muscle, Joint, or Bone Problems Y Thyroid Problems Y Gynecological History Statement/Question Response Menses Monthly N Current Control Method None Obstetrics History GPAL:G 0 P 0 0 0 0 Immunizations Vaccine Type Date Status Note Provider Nam e and Address Organization Details Recorded Time Influenza, MDCK, quadrivalent, PF 03/21/2022 completed TARAN [place], [place] - [facility] 03/29/2024 09:48:17 COVID-19 vaccine, vector-nr, rS-Ad26, PF, 0.5 mL 08/04/2020 completed Fifi Harm[place], [place] [facility] 03/29/2024 09:48:17 COVID-19 vaccine, vector-nr, rS-Ad26, PF, 0.5 mL 05/02/2021 completed TARAN [place], [place] [facility] 03/29/2024 09:48:17 COVID-19, mRNA, LNP-S, bivalent, PF, 30 mcg/0.3 mL dose 03/21/2022 completed TARAN [place] [facility] 03/29/2024 09:48:17 influenza, unspecified formulation 02/26/2022 completed TARAN [place] [facility] 03/29/2024 09:48:17 Influenza, split virus, quadrivalent, PF 03/22/2020 completed TARAN [place] [facility] 03/29/2024 09:48:17 Influenza, split virus, quadrivalent, PF 04/01/2021 completed Fifi Harmon MA [place] - [facility] 03/29/2024 09:48:17 Past Encounters Encounter ID Performer Location Encounter Start Date Encounter Closed Date Diagnosis/Indication Diagnosis SNOMED-CT Code Diagnosis ICD10 Code Diagnosis Note [id number] Be Higginbotham MD [facility] [employer] [facility] [place] [address] [place] [address] 09/28/2023 08:49:50 09/28/2023 09:48:47 Dyslipidemia 633887041 E78.5 pt with hx of dyslipidem ia. not on medication . due for updated lipid panel. Hypothyroidism 03431300 E03.9 stable on synthroid 112mcg daily. due for updated labs Body mass index 40+ - severely obese 521051477 Z68.41 screening Insulin lab due Obesity 839627587 E66.9 discussed healthy diet, exercise, controllin g carbohydra jack and added sugars in the diet Anxiety 44562192 F41.9 stable on fluoxetine 40mg daily. no c/o with mood stability. Peripheral neuropathic pain 529150265 M79.2 refer for NCS of the lower extremitie s to see if there are any signs of small fiber neuropathy issues, or if this is stemming from lumbar region, etc. Long-term drug therapy 188247782 Z79.899 check CBC and CMP. Pain in bi lateral lower legs 6757675030 0848772 M79.661 M79.662 with pain in the legs, we will also check HAYES's of the LEs. Diabetes m ellitus screening 043312581 Z13.1 a1c screening is due Vitamin B1 2 deficiency (non anemic) 11332933 E53.8 hx of b12 injection monthly. due for updated labs to monitor dosing efficacy. Vitamin D deficiency 347 24880 E55.9 hx of high dose vit D rx weekly. due for updated lab. [id number] Esequiel Wang MD [facility] (Adult Med) [address] [place] [address] 01/23/2024 13:56:47 02/02/2024 10:45:02 Impacted cerumen in right ear 5610113731 720540 H61.21 ear cleared return as needed [id number] Be Higginbotham MD [facility] [employer] [facility] [place] [address] [place] [address] 04/01/2024 09:58:34 04/01/2024 11:14:09 Dyslipidemia 674368919 E78.5 pt with hx of dyslipidem ia. not on medication . due for updated lipid panel. Hypothyroidism 65625530 E03.9 stable on synthroid 112mcg daily. due for updated labs Body mass index 40+ - severely obese 730276876 Z68.41 screening Insulin lab due Obesity 229881292 E66.9 discussed healthy diet, exercise, controllin g carbohydra jack and added sugars in the diet Anxiety 60281613 F41.9 stable on fluoxetine 40mg daily. no c/o with mood stability. Peripheral neuropathic pain 985087651 M79.2 Patient is seeing Neurology specialist for neuropathi c pain. Pain in bi lateral lower legs 3884428193 7205752 M79.661 M79.662 Pain in legs as stated above. Also related to her spinal stenosis in her low back. Long-term drug therapy 841052503 Z79.899 check CBC and CMP. Vitamin B1 2 deficiency (non anemic) 69830043 E53.8 hx of b12 injection monthly. due for updated labs Vitamin D deficiency 347 07585 E55.9 hx of high dose vit D rx weekly. Lumbar spondylosis 30295 0009 M47.896 Noted history Spinal sudarshan nosis of lumbar region 74814287 M48.062 MRI was completed this summer by pain management . we do not have that copy of MRI. History of total hip arthroplasty 1161351573 06 Z96.649 hx of replacemen t with AMH Dizziness 368375593 R42 Trial of meclizine 25 mg 3 times a day as needed for some infrequent dizziness that she is reporting. No acute imaging needs at this time. [id number] Be Higginbotham MD [facility] [employer] [facility] [place] [address] [place] [address] 06/18/2024 10:33:13 06/18/2024 15:03:04 Pain of bilateral hands 8808325005 3984179 M79.641 M79.642 Refer to physical therapy in the meantime for her pain in her arms Numbness of hand 6295495 04 R20.0 Proceed with scheduling also nerve conduction study of the upper extremitie s and she should reach out to the imaging location she is scheduled for on her lower extremity and see if they could provide both tests on the same day. Recurrent falls 74865194 2 R29.6 It has been discussed she has had some weakness and just the overall lower extremitie s with pain she is having. We have suggested that she use a walker and/or wheelchair as much as possible at this time Paresthesia 70063845 R20 .2 MRI of the brain as ordered above due to also complaint of paresthesi as. Dizziness 608690528 R42 For dizziness that is now a significan t symptom that is frequent we are going to send her for an MRI of the brain with and without contrast to rule out any underlying etiology that could not only be causing dizziness but also recurrent falls. In particular conditions like normal pressure hydrocepha vashti or any structural lesion. Lumbar spondylosis 60418 0009 M47.896 Noted history Spinal sudarshan nosis of lumbar region 19319721 M48.062 History reviewed [id number] Be Higginbotham MD [facility] [employer] [address] [place] [address] 08/22/2024 16:58:25 08/29/2024 12:04:33 Electrocardiogram abnormal 426218578 R94.31 [id number] Be Higginbotham MD [facility] [employer] [address] [place] [address] 09/26/2024 08:49:16 09/26/2024 09:33:24 Dyslipidemia 044030726 E78.5 pt with hx of dyslipidem ia. not on medication . due for updated lipid panel. Hypothyroidism 30163440 E03.9 stable on synthroid 112mcg daily. due for updated labs Anxiety 86553131 F41.9 stable on fluoxetine 40mg daily. no c/o with mood stability. Peripheral neuropathic pain 626197906 M79.2 Patient is seeing Neurology specialist for neuropathi c pain. Pain in bi lateral lower legs 5425658750 7626614 M79.661 M79.662 Pain in legs as stated above. Also related to her spinal stenosis in her low back. Spinal sudarshan nosis of lumbar region 39193678 M48.062 MRI was completed this summer by pain management . we do not have that copy of MRI. Lumbar spondylosis 32424 0009 M47.896 Noted history Body mass index 40+ - severely obese 408058156 Z68.41 screening Insulin lab due Vitamin B1 2 deficiency (non anemic) 17124606 E53.8 hx of b12 injection monthly. due for updated labs Vitamin D deficiency 347 07111 E55.9 hx of high dose vit D rx weekly. Obesity 935534302 E66.9 discussed healthy diet, exercise, controllin g carbohydra jack and added sugars in the diet Long-term drug therapy 032773492 Z79.899 check CBC and CMP. History of total hip arthroplasty 6571209494 06 Z96.649 hx of replacemen t with AMH Bilateral carpal tunnel syndrome 6006126782 0837806 G56.03 Refer to hand surgeon for discussion on a carpal tunnel surgery, carpal tunnel has been confirmed with previous nerve conduction study in June of [facility] Concerns Section Related Observation LastModified by Organization Detai ls LastModified Time None Recorded Concern Status LastModified by Organization Details LastModified Time None Recorded Advance Directives Directive N: Payers Encounter Date Sequence Insurance Name Policy Number Policy Hills Covered Member ID Hills Member ID Guarantor Name 01/23/2024 1 [place] [id number] Mirlande Db [id number] Mirlande Db 04/01/2024 1 [place] [id number] Mirlande Db [id number] Mir[place]e Db 06/18/2024 1 [place] [id number] Mirlande Db [id number] Mirlande Db 08/22/2024 1 [place] [id number] Mirlande Db [id number] Mirlande Db 09/26/2024 1 [place] [id number] Mirlande Db [id number] Mirlande Db Notes Date Note Type Note Provider Name and Address Organization Details Recorded Time 4 text/html Pt complaining of blockage of her right ear for the last two weeks. no pain or drainage Esequiel Wang MD Attn: [employer] [facility], [place], [address], [facility] 01/23/2024 14:23:04 4 text/html Anxiety/DepressionReport ed bypatient.Quality:sympto ms improved Severity:denies suicidal ideations; able to maintain relationships; does not interfere with activities of daily living Duration:stablizing Context:no major life stressors Modifying Factors:medications as directed Associated Symptoms:anxietyPeripher al NeuropathyReported bypatient.Location:numbn ess;tingling;poor balance Quality:progressively worse over months Severity:moderate Duration:has noted for years Onset/Timing:worse Context:no change in sleep Associated Symptoms:low back painThyroidReported bypatient.Onset/Timing:b avril Context:history of hypothyroidism Modifying Factors:medication Exerciseno exercise Associated Symptoms:anxiety;skin changes Hx of Left FAM with Dr. Knight in [place]. She didn't feel great after the replacement, never got her balance back. uses cane often. rounds of P.T. and then saw Pain Management with [facility] juliette. Lumbar deg. disc disease , history of nerve ablation in lumbar levels with Dr. Lopez at [facility] pain. Patient reports she does have some dizziness at times with her balance BETY Hogue Attn: [employer],[address] [facility], [place], [address], [facility] 04/14/2024 19:06:59 5 text/html bilateral hand pain and inability to move the hands normally now. This has progressed even since her last visit. She had an emergency room visit for this and they had instructed her to see her primary care to get a referral for physical therapy. She does have a nerve conduction study that is scheduled for her lower extremities in that 1st availability was not until June. She does not have a current order for any nerve conduction study of her upper extremities to evaluate for any carpal tunnel.Overall the patient is having frequent falls due to her lower extremity pain and weakness.Today the patient also reports she is having quite a bit of dizziness that she feels like is newer in the last weeks and reporting to her PCP about this today. She has not had any head injury on her falls but she says there is a chance it could have happened and she just does not recall. She is also having just some generalized paresthesias and a history of low back spinal stenosis. BETY Hogue Attn: [employer],[address] [facility], [place], [address], [facility] 06/30/2024 17:08:11 5 text/html Anxiety/DepressionReport ed bypatient.Quality:sympto ms improved Severity:denies suicidal ideations; able to maintain relationships; does not interfere with activities of daily living Duration:stablizing Context:no major life stressors Modifying Factors:medications as directed Associated Symptoms:anxietyHyperlip idemiaReported bypatient.Notes:Patient has a history of dyslipidemia but is not on any medication. She is due for routine labs. The last set of lipid panel was stable in [place] NeuropathyReported bypatient.Location:numbn ess;tingling;poor balance Quality:progressively worse over months Severity:moderate Duration:has noted for years Onset/Timing:worse Context:no change in sleep Associated Symptoms:low back painThyroidReported bypatient.Onset/Timing:b avril Context:history of hypothyroidism Modifying Factors:medication Exerciseno exercise Associated Symptoms:anxiety;skin changes Hx of FAM with Dr. Knight in [place]. h Lumbar deg. disc disease , history of nerve ablation in lumbar levels with Dr. Lopez at [facility] pain. Patient also has symptoms of carpal tunnel syndrome and was waiting to get through her orthopedic hip surgery before pursuing treatment for her carpal tunnel. BETY Hogue Attn: [employer] [facility], [place], [address], [facility] 10/13/2024 18:34:02 OBGyn Episode No OBEpisode recorded.
--- OUTSIDE RECORDS SUMMARY | 2024-10-28 09:51 | XMS_ITS | Patient Health Record ---
Author Organization [facility] Address [address] [facility] [address] [place] [address] [address] Care [address] Magistrate Name Role Phone Be Higginbotham Primary Care Provider Be Alejandre Unavailable [phone] ALLERGIES No Known Allergies REASON FOR REFERRAL No Information MEDICATIONS Medication SIG (Take, Route, Fr equency, Duration) Notes Start Date End Date Status Fluoxetine Active Pregabalin Active Naproxen Active Vitamin D Active Spironolactone Activ e buPROPion HCl Active PROBLEMS Problem Type ICD Code Onset Dates Problem Status W/U Status Risk SNOMED Code Notes Problem Degenerative joint disease of right hip (M16.11) Active confirmed Localized, primary osteoarthritis of the pelvic region and thigh (171466442) Problem Contracture, right hip (M24.551) Active confirmed Contracture of hip joint (243449397) Problem Scoliosis (M41.9) Active confirmed Scoliosis (231746847) Problem 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 Lumbosacral spondylosis without myelopathy (15662439) VITAL SIGNS Height 63 in 05/01/2024 Weight 230 lbs 05/01/2024 BMI 40.74 kg/m2 05/01/2024 Encounters Encounter Location Date Provider Diagnosis [facility] [address] [facility] [address] [place] [address] 05/01/2024 Be Guerrero Hip pain, right M25.551 ; Degenerative joint disease of right hip M16.11 ; Contracture, right hip M24.551 ; Other low back pain M54.59 ; Scoliosis M41.9 ; Disc Degeneration, Lumbar Region with Leg Pain M51.361 and Facet degeneration of lumbar region M47.816 ASSESSMENTS Encounter Date Diagnosis Assessment Notes Treatment Notes Treatment Clinical Notes 05/01/2024 Hip pain, right (ICD-10 - M25.551) 05/01/2024 Degenerative joint disease of right hip (ICD-10 - M16.11) 05/01/2024 Contracture, right hip (ICD-10 - M24.551) 05/01/2024 Other low back pain (ICD-10 - M54.59) 05/01/2024 Scoliosis (ICD-10 - M41.9) 05/01/2024 Disc Degeneration, Lumbar Region with Leg Pain (ICD-10 - M51.361) 05/01/2024 Facet degeneration of lumbar region (ICD-10 - M47.816) PLAN OF TREATMENT No Information Insurance Providers Payer Name Payer Address Payer Phone Subscriber Number Group Number Insured Name Patient Relationship to Insured Coverage Start Date Coverage End Date Ayah [facility] [place] [address] [place] [address] [id number] Mirlande Ace Self - patient is the insured MEDICAL (GENERAL) HISTORY Medical History History ICD Code Thyroid disease Osteoporosis Arthritis Back pain Numbness in hands/feet Spinal stenosis Depression Denies being hospitalized for psychiatri c condition Denies h/o drug/chemical dependency Surgical History Surgery Date(Month/Year) Left hip 04/2022
--- OUTSIDE RECORDS SUMMARY | 2024-10-28 09:51 | XMS_ITS | Data Portability ---
Author Organization [place] - [facility], Main Office Address [address] [place] [address] Assessment Encounter Date Assessment Date Assessment LastModified by Organization Details LastModified Time 08/04/2022 08/04/2022 Will continue current therapy me in months [email or web address] Not available 08/06/2022 18:07:42 01/26/2023 01/26/2023 She is getting set up with pain management by her orthopedic surgeon continue medicine otherwise see me back in 4 months [email or web address] Not available 01/26/2023 23:26:33 05/18/2023 05/18/2023 Will try to get a G LP 1 agent will continue current therapy blood work has been ordered and thyroid ultrasound [email or web address] Not available 05/18/2023 22:00:18 Plan of Treatment Reminders Order Date Submit Date Provider Last Modified By Organization Details Last Modified Time Details Appointments None recorded. Lab CBC w/ auto diff 2022 023 [email or web address] Not available 3 14:58:03 CMP, serum or plasma 2022 023 Not available 3 14:58:03 lipid panel, serum 2022 023 [email or web address] Not available 3 14:58:03 T3, free, serum or plasma 2022 023 Not available 3 14:58:03 TSH, serum or plasma 2022 023 Not available 3 14:58:03 T4, free, serum 2022 023 [email or web address] Not available 3 14:58:03 vitamin D, 25-hydroxy, total, serum 2022 023 [email or web address] Not available 3 11:48:29 lipid panel, serum 2022 023 [email or web address] Not available 3 14:46:48 CMP, serum or plasma 2022 023 SILVIO Not available 3 14:46:59 HbA1c (hemoglobin A1c), blood 2022 023 [email or web address] Not available 3 11:48:23 CBC w/ auto diff 2022 023 [email or web address] Not available 3 13:26:29 T3, free, serum or plasma 2022 023 SILVIO Not available 3 14:57:44 T4, free, serum 2022 023 SILVIO Not available 3 14:57:48 TSH, serum or plasma 2022 023 SILVIO Not available 3 15:43:51 Referral None recorded. Procedures None recorded. Surgeries None recorded. Imaging US, thyroid 2022 023 cyahl [facility], [address] [place] [address], [place], [address], 4 11:38:53 Medication Orders tirzepatide 2.5 mg/0.5 mL subcutaneou s pen injector 2022 023 [email or web address] [id number] [facility], [place], [address], 3 14:58:03 Patient TargetsNo targets recorded. Patient InstructionsNo instructions recorded. Reason for Referral None Reported. Results Created Date Observation Date Name Description Value Unit Range Abnormal Flag Note LastModifiedBy Organization Detail LastModifiedTime 01/27/202023 CBC/C OMPLE TE BLD COUNT W/DIF F white blood cells 4.2 x10'3 /uL 4.2-10 .8 Not Available [facility] (Lab) [address] [place], [address], 01/26/2023 13:17:27 01/27/20 23 01/26/2023 CBC/C OMPLE TE BLD COUNT W/DIF F red blood cells 4.58 x10'6 /uL 3.80-5 .20 Not Available [facility] (Lab) [address] [place], [address], 01/26/2023 13:17:27 01/27/20 23 01/26/2023 CBC/C OMPLE TE BLD COUNT W/DIF F hemoglobin 14.1 g/dL 12.0-1 5.6 Not Available [facility] (Lab) [address] [place], [address], 01/26/2023 13:17:27 01/27/20 23 01/26/2023 CBC/C OMPLE TE BLD COUNT W/DIF F hematocrit 44.7 % 35.7-4 5.7 Not Available [facility] (Lab) [address] [place], [address], 01/26/2023 13:17:27 01/27/20 23 01/26/2023 CBC/C OMPLE TE BLD COUNT W/DIF F mean red cell volume 97.6 fL 82.0-9 9.0 Not Available [facility] (Lab) [address] [place], [address], 01/26/2023 13:17:27 01/27/20 23 01/26/2023 CBC/C OMPLE TE BLD COUNT W/DIF F mean red cell hemoglobin 30.8 pg 27.0-3 3.0 Not Available [facility] (Lab) [address] [place], [address], 01/26/2023 13:17:27 01/27/20 23 01/26/2023 CBC/C OMPLE TE BLD COUNT W/DIF F mean RBC HGB concentratio n 31.5 g/dL 31.0-3 6.0 Not Available [facility] (Lab) [address] [place], [address], 01/26/2023 13:17:27 01/27/20 23 01/26/2023 CBC/C OMPLE TE BLD COUNT W/DIF F red cell distribution width 14.3 % 11.8-1 5.5 Not Available [facility] (Lab) [address] [place], [address], 01/26/2023 13:17:27 01/27/20 23 01/26/2023 CBC/C OMPLE TE BLD COUNT W/DIF F platelets 240 x10'3 /uL 150-40 0 Not Available [facility] (Lab) [address] [place], [address], 01/26/2023 13:17:27 01/27/20 23 01/26/2023 CBC/C OMPLE TE BLD COUNT W/DIF F mean platelet volume 10.0 fL 9.0-12 .4 Not Available [facility] (Lab) [address] [place], [address], 01/26/2023 13:17:27 01/27/20 23 01/26/2023 CBC/C OMPLE TE BLD COUNT W/DIF F neutrophils 56.2 % 39.0-7 2.0 Not Available [facility] (Lab) [address] [place], [address], 01/26/2023 13:17:27 01/27/20 23 01/26/2023 CBC/C OMPLE TE BLD COUNT W/DIF F lymphocytes 27.7 % 16.0-4 7.0 Not Available [facility] (Lab) [address] [place], [address], 01/26/2023 13:17:27 01/27/20 23 01/26/2023 CBC/C OMPLE TE BLD COUNT W/DIF F monocytes 8.1 % 5.0-12 .0 Not Available [facility] (Lab) [address] [place], [address], 01/26/2023 13:17:27 01/27/20 23 01/26/2023 CBC/C OMPLE TE BLD COUNT W/DIF F eosinophils 6.6 % 1.0-7. 0 Not Available [facility] (Lab) [address] [place], [address], 01/26/2023 13:17:27 01/27/20 23 01/26/2023 CBC/C OMPLE TE BLD COUNT W/DIF F basophils 1.2 % 0.0-2. 0 Not Available [facility] (Lab) [address] [place], [address], 01/26/2023 13:17:27 01/27/20 23 01/26/2023 CBC/C OMPLE TE BLD COUNT W/DIF F immature granulocytes 0.2 % 0.00-0 .50 Not Available [facility] (Lab) [address] [place], [address], 01/26/2023 13:17:27 01/27/2001/26/2023 CBC/C OMPLE TE BLD COUNT W/DIF F neutrophils, absolute count 2.37 x10'3 /uL 1.5-8. 0 Not Available [facility] (Lab) [address] [place], [address], 01/26/2023 13:17:27 01/27/20 23 01/26/2023 CBC/C OMPLE TE BLD COUNT W/DIF F lymphocytes, absolute count 1.17 x10'3 /uL 1.07-3 .43 Not Available [facility] (Lab) [address] [place], [address], 01/26/2023 13:17:27 01/27/20 23 01/26/2023 CBC/C OMPLE TE BLD COUNT W/DIF F monocytes, absolute count 0.34 x10'3 /uL 0.29-0 .99 Not Available [facility] (Lab) [address] [place], [address], 01/26/2023 13:17:27 01/27/20 23 01/26/2023 CBC/C OMPLE TE BLD COUNT W/DIF F eosinophils, absolute count 0.28 x10'3 /uL 0.02-0 .53 Not Available [facility] (Lab) [address] [place], [address], 01/26/2023 13:17:27 01/27/20 23 01/26/2023 CBC/C OMPLE TE BLD COUNT W/DIF F basophils, absolute count 0.05 x10'3 /uL 0.01-0 .08 Not Available [facility] (Lab) [address] [place], [address], 01/26/2023 13:17:27 01/27/20 23 01/26/2023 CBC/C OMPLE TE BLD COUNT W/DIF F immature granulocytes ,absolute 0.01 x10'3 /uL 0.00-0 .05 Not Available [facility] (Lab) [address] [place], [address], 01/26/2023 13:17:27 01/27/20 23 01/26/2023 CBC/C OMPLE TE BLD COUNT W/DIF F nucleated red blood cells 0.0 % -0 Not Available [facility] (Lab) [address] [place], [address], 01/26/2023 13:17:27 01/27/20 23 01/26/2023 CBC/C OMPLE TE BLD COUNT W/DIF F NRBC# 0.00 x10'3 /uL Not Available [facility] (Lab) [address] [place], [address], 01/26/2023 13:17:27 01/27/2001/26/2023 HEMOG LOBIN A1C HA1C 5.3 % 4.0-6. 0 Diabe jack Scree melanie Crite scott: <5.7% Consi stent with absen ce of diabe jack 5.7-6 .4% Consi stent with incre ased risk for diabe jack (pred iabet es) >OR=6 .5% Consi stent with diabe jack REFER ENCE: Diabe jack Care 2016, 39(Anthony ppl.1 ):s13 -s22 Not Available [facility] (Lab) [address] [place], [address], 01/26/2023 14:45:12 01/27/20 23 01/26/2023 LIPID PANEL cholesterol 228 mg/dL 140-19 9 high NIH PAGE NSUS RECOM MENDA TION FOR CELENA STERO L: ADULT CHILD LOW RISK: <200 <170 BORDE RLINE : <200- 239 ----- HIGH RISK: >240 >200 Not Available [facility] (Lab) [address] [place], [address], 01/26/2023 14:46:48 01/27/2001/26/2023 LIPID PANEL triglyceride s 98 mg/dL 0-150 NIH PAGE NSUS REPOR T RECOM MENDA TION FOR TRIGL YCERI SERINA: ADULT CHILD LOW RISK: <150 ----- BODER LINE: 150-1 99 ----- HIGH RISK: >200 ----- Not Available [facility] (Lab) [address] [place], [address], 01/26/2023 14:46:48 01/27/20 23 01/26/2023 LIPID PANEL HDL cholesterol 55 mg/dL 40- Not Available [facility] (Lab) [address] [place], [address], 01/26/2023 14:46:48 01/27/20 23 01/26/2023 LIPID PANEL LDL cholesterol, calculated 153 mg/dL 0-130 high NIH PAGE NSUS REPOR T RECOM MENDA TIONS FOR LDL: ADULT CHILD LOW RISK <130 <110 (OPTI MAL LDL) <100 ----- BORDE RLINE : 130-1 59 ----- HIGH RISK: >160 >130 A TRIGL YCERI DE RESUL T >400 INVAL IDATE S THE CALCU LATIO N FOR LDL FRACT IONAT ION - THE LDL RESUL T WILL NOT BE REPOR GAYLE. Not Available [facility] (Lab) [address] [place], [address], 01/26/2023 14:46:48 01/27/20 23 01/26/2023 COMPR EHENS TRAMAINE METAB OLIC PANEL sodium 141 mmol/ L 137-14 5 Not Available [facility] (Lab) [address] [place], [address], 01/26/2023 14:46:59 01/27/20 23 01/26/2023 COMPR EHENS TRAMAINE METAB OLIC PANEL potassium 5.0 mmol/ L 3.5-5. 1 Not Available [facility] (Lab) [address] [place], [address], 01/26/2023 14:46:59 01/27/20 23 01/26/2023 COMPR EHENS TRAMAINE METAB OLIC PANEL chloride 102 mmol/ L 98-107 Not Available [facility] (Lab) [address] [place], [address], 01/26/2023 14:46:59 01/27/20 23 01/26/2023 COMPR EHENS TRAMAINE METAB OLIC PANEL carbon dioxide 32 mmol/ L 22-30 high Not Available [facility] (Lab) [address] [place], [address], 01/26/2023 14:46:59 01/27/20 23 01/26/2023 COMPR EHENS TRAMAINE METAB OLIC PANEL anion gap 12.0 mmol/ L 14-22 low Not Available [facility] (Lab) [address] [place], [address], 01/26/2023 14:46:59 01/27/20 23 01/26/2023 COMPR EHENS TRAMAINE METAB OLIC PANEL glucose 93 mg/dL 70-99 Not Available [facility] (Lab) [address] [place], [address], 01/26/2023 14:46:59 01/27/20 23 01/26/2023 COMPR EHENS TRAMAINE METAB OLIC PANEL BUN 10 mg/dL 8-19 Not Available [facility] (Lab) [address] [place], [address], 01/26/2023 14:46:59 01/27/20 23 01/26/2023 COMPR EHENS TRAMAINE METAB OLIC PANEL creatinine 0.73 mg/dL 0.66-1 .25 Not Available [facility] (Lab) [address] [place], [address], 01/26/2023 14:46:59 01/27/20 23 01/26/2023 COMPR EHENS TRAMAINE METAB OLIC PANEL GFR >60 Refer ence Range : [place] ge GFR Healt hy Adult : >60 mL/mi n/1.7 3 m2 Chron ic Kidne y Disea se: 15-60 mL/mi n/1.7 3 m2 Kidne y Failu re: <15/m L/min /1.73 m2 www.n iddk. nih.g ov The MDRD study equat ion has not been valid ated in child sola <18 years of age; pregn ant women ; the elder ly >85 years of age; or in some racia l or ethni c subgr oups, such as Hispa nics. Outsi de the valid ated kumar eters , estim ated GFR is less accur ate, requi ring clini homer judgm ent on a case- by-ca se basis . Clini homer inter preta tion for other races and ages must be made by the clini grzegorz. The MDRD study equat ion has not been valid ated for the evalu ation of serum creat inine relat ed to nutri [place] l statu s or medic ation usage . For perso ns <18 years of age, a pedia tric GFR calcu lator is avail able on the [facility] websi te: https ://gene w.win michelle.o rg/pr ofess ional s/kdo qi/gf r_cal culat or Not Available [facility] (Lab) [address] [place], [address], 01/26/2023 14:46:59 01/27/20 23 01/26/2023 COMPR EHENS TRAMAINE METAB OLIC PANEL alkaline phosphatase 61 U/L 38-126 Not Available [facility] (Lab) [address] [place], [address], 01/26/2023 14:46:59 01/27/20 23 01/26/2023 COMPR EHENS TRAMAINE METAB OLIC PANEL alanine aminotransfe rase 21 U/L 0-35 Not Available [facility] (Lab) [address] [place], [address], 01/26/2023 14:46:59 01/27/20 23 01/26/2023 COMPR EHENS TRAMAINE METAB OLIC PANEL aspartate aminotransfe rase 31 U/L 15-37 Not Available [facility] (Lab) [address] [place], [address], 01/26/2023 14:46:59 01/27/20 23 01/26/2023 COMPR EHENS TRAMAINE METAB OLIC PANEL bilirubin, total 0.40 mg/dL 0.20-1 .30 Not Available [facility] (Lab) [address] [place], [address], 01/26/2023 14:46:59 01/27/20 23 01/26/2023 COMPR EHENS TRAMAINE METAB OLIC PANEL calcium 9.3 mg/dL 8.4-10 .2 Not Available [facility] (Lab) [address] [place], [address], 01/26/2023 14:46:59 01/27/20 23 01/26/2023 COMPR EHENS TRAMAINE METAB OLIC PANEL total protein 7.4 g/dL 6.3-8. 2 Not Available [facility] (Lab) [address] [place], [address], 01/26/2023 14:46:59 01/27/20 23 01/26/2023 COMPR EHENS TRAMAINE METAB OLIC PANEL albumin 4.5 g/dL 3.4-5. 0 Not Available [facility] (Lab) [address] [place], [address], 01/26/2023 14:46:59 01/27/20 23 01/26/2023 COMPR EHENS TRAMAINE METAB OLIC PANEL globulin 2.9 g/dL 2.6-4. 2 Not Available [facility] (Lab) [address] [place], [address], 01/26/2023 14:46:59 01/27/20 23 01/26/2023 COMPR EHENS TRAMAINE METAB OLIC PANEL A/G ratio 1.6 ratio 1.0-2. 0 Not Available [facility] (Lab) [address] [place], [address], 01/26/2023 14:46:59 01/27/20 23 01/26/2023 VITAM IN D 25-HY DROXY [id number] 62.5 NG/mL 30-100 Vitam in D Statu s: Defic ient: <20 ng/mL Insuf ficie nt: 20-29 ng/mL Suffi cient : 30-10 0 ng/mL Not Available [facility] (Lab) [address] [place], [address], 01/26/2023 14:56:48 01/27/20 23 01/26/2023 T3 FREE free T3 1.9 pg/mL 2.77-5 .27 low Not Available [facility] (Lab) [address] [place], [address], 01/26/2023 14:57:44 01/27/20 23 01/26/2023 T4 FREE free T4 0.64 NG/dL 0.78-2 .19 low Not Available [facility] (Lab) [address] [place], [address], 01/26/2023 14:57:48 01/27/20 23 01/26/2023 TSH thyroid-stim ulating hormone 51.300 uIU/m L 0.465- 4.680 high Not Available [facility] (Lab) [address] [place], [address], 01/26/2023 15:43:51 05/18/20 23 05/18/2023 CBC/C OMPLE TE BLD COUNT W/DIF F white blood cells 5.7 x10'3 /uL 4.2-10 .8 Not Available [facility] (Lab) [address] [place], [address], 05/18/2023 14:00:50 05/18/20 23 05/18/2023 CBC/C OMPLE TE BLD COUNT W/DIF F red blood cells 4.11 x10'6 /uL 3.80-5 .20 Not Available [facility] (Lab) [address] [place], [address], 05/18/2023 14:00:50 05/18/20 23 05/18/2023 CBC/C OMPLE TE BLD COUNT W/DIF F hemoglobin 13.1 g/dL 12.0-1 5.6 Not Available [facility] (Lab) [address] [place], [address], 05/18/2023 14:00:50 05/18/20 23 05/18/2023 CBC/C OMPLE TE BLD COUNT W/DIF F hematocrit 41.1 % 35.7-4 5.7 Not Available [facility] (Lab) [address] [place], [address], 05/18/2023 14:00:50 05/18/20 23 05/18/2023 CBC/C OMPLE TE BLD COUNT W/DIF F mean red cell volume 100.0 fL 82.0-9 9.0 high Not Available [facility] (Lab) [address] [place], [address], 05/18/2023 14:00:50 05/18/20 23 05/18/2023 CBC/C OMPLE TE BLD COUNT W/DIF F mean red cell hemoglobin 31.9 pg 27.0-3 3.0 Not Available [facility] (Lab) [address] [place], [address], 05/18/2023 14:00:50 05/18/20 23 05/18/2023 CBC/C OMPLE TE BLD COUNT W/DIF F mean RBC HGB concentratio n 31.9 g/dL 31.0-3 6.0 Not Available [facility] (Lab) [address] [place], [address], 05/18/2023 14:00:50 05/18/20 23 05/18/2023 CBC/C OMPLE TE BLD COUNT W/DIF F red cell distribution width 12.8 % 11.8-1 5.5 Not Available [facility] (Lab) [address] [place], [address], 05/18/2023 14:00:50 05/18/20 23 05/18/2023 CBC/C OMPLE TE BLD COUNT W/DIF F platelets 269 x10'3 /uL 150-40 0 Not Available [facility] (Lab) [address] [place], [address], 05/18/2023 14:00:50 05/18/20 23 05/18/2023 CBC/C OMPLE TE BLD COUNT W/DIF F mean platelet volume 10.8 fL 9.0-12 .4 Not Available [facility] (Lab) [address] [place], [address], 05/18/2023 14:00:50 05/18/20 23 05/18/2023 CBC/C OMPLE TE BLD COUNT W/DIF F neutrophils 55.6 % 39.0-7 2.0 Not Available [facility] (Lab) [address] [place], [address], 05/18/2023 14:00:50 05/18/20 23 05/18/2023 CBC/C OMPLE TE BLD COUNT W/DIF F lymphocytes 26.5 % 16.0-4 7.0 Not Available [facility] (Lab) [address] [place], [address], 05/18/2023 14:00:50 05/18/20 23 05/18/2023 CBC/C OMPLE TE BLD COUNT W/DIF F monocytes 8.0 % 5.0-12 .0 Not Available [facility] (Lab) [address] [place], [address], 05/18/2023 14:00:50 05/18/20 23 05/18/2023 CBC/C OMPLE TE BLD COUNT W/DIF F eosinophils 8.5 % 1.0-7. 0 high Not Available [facility] (Lab) [address] [place], [address], 05/18/2023 14:00:50 05/18/20 23 05/18/2023 CBC/C OMPLE TE BLD COUNT W/DIF F basophils 1.2 % 0.0-2. 0 Not Available [facility] (Lab) [address] [place], [address], 05/18/2023 14:00:50 05/18/20 23 05/18/2023 CBC/C OMPLE TE BLD COUNT W/DIF F immature granulocytes 0.2 % 0.00-0 .50 Not Available [facility] (Lab) [address] [place], [address], 05/18/2023 14:00:50 05/18/20 23 05/18/2023 CBC/C OMPLE TE BLD COUNT W/DIF F neutrophils, absolute count 3.19 x10'3 /uL 1.5-8. 0 Not Available [facility] (Lab) [address] [place], [address], 05/18/2023 14:00:50 05/18/20 23 05/18/2023 CBC/C OMPLE TE BLD COUNT W/DIF F lymphocytes, absolute count 1.52 x10'3 /uL 1.07-3 .43 Not Available [facility] (Lab) [address] [place], [address], 05/18/2023 14:00:50 05/18/20 23 05/18/2023 CBC/C OMPLE TE BLD COUNT W/DIF F monocytes, absolute count 0.46 x10'3 /uL 0.29-0 .99 Not Available [facility] (Lab) [address] [place], [address], 05/18/2023 14:00:50 05/18/20 23 05/18/2023 CBC/C OMPLE TE BLD COUNT W/DIF F eosinophils, absolute count 0.49 x10'3 /uL 0.02-0 .53 Not Available [facility] (Lab) [address] [place], [address], 05/18/2023 14:00:50 05/18/20 23 05/18/2023 CBC/C OMPLE TE BLD COUNT W/DIF F basophils, absolute count 0.07 x10'3 /uL 0.01-0 .08 Not Available [facility] (Lab) [address] [place], [address], 05/18/2023 14:00:50 05/18/20 23 05/18/2023 CBC/C OMPLE TE BLD COUNT W/DIF F immature granulocytes ,absolute 0.01 x10'3 /uL 0.00-0 .05 Not Available [facility] (Lab) [address] [place], [address], 05/18/2023 14:00:50 05/18/20 23 05/18/2023 CBC/C OMPLE TE BLD COUNT W/DIF F nucleated red blood cells 0.0 % -0 Not Available [facility] (Lab) [address] [place], [address], 05/18/2023 14:00:50 05/18/20 23 05/18/2023 CBC/C OMPLE TE BLD COUNT W/DIF F NRBC# 0.00 x10'3 /uL Not Available [facility] (Lab) [address] [place], [address], 05/18/2023 14:00:50 05/18/20 23 05/18/2023 COMPR EHENS TRAMAINE METAB OLIC PANEL sodium 139 mmol/ L 137-14 5 Not Available [facility] (Lab) [address] [place], [address], 05/18/2023 14:52:34 05/18/20 23 05/18/2023 COMPR EHENS TRAMAINE METAB OLIC PANEL potassium 4.6 mmol/ L 3.5-5. 1 Not Available [facility] (Lab) [address] [place], [address], 05/18/2023 14:52:34 05/18/20 23 05/18/2023 COMPR EHENS TRAMAINE METAB OLIC PANEL chloride 107 mmol/ L 98-107 Not Available [facility] (Lab) [address] [place], [address], 05/18/2023 14:52:34 05/18/20 23 05/18/2023 COMPR EHENS TRAMAINE METAB OLIC PANEL carbon dioxide 25 mmol/ L 22-30 Not Available [facility] (Lab) [address] [place], [address], 05/18/2023 14:52:34 05/18/20 23 05/18/2023 COMPR EHENS TRAMAINE METAB OLIC PANEL anion gap 11.6 mmol/ L 14-22 low Not Available [facility] (Lab) [address] [facility] [place], [address], 05/18/2023 14:52:34 05/18/20 23 05/18/2023 COMPR EHENS TRAMAINE METAB OLIC PANEL glucose 85 mg/dL 70-99 Not Available [facility] (Lab) [address] [facility] [place], [address], 05/18/2023 14:52:34 05/18/20 23 05/18/2023 COMPR EHENS TRAMAINE METAB OLIC PANEL BUN 16 mg/dL 8-19 Not Available [facility] (Lab) [address] [place], [address], 05/18/2023 14:52:34 05/18/20 23 05/18/2023 COMPR EHENS TRAMAINE METAB OLIC PANEL creatinine 0.69 mg/dL 0.66-1 .25 Not Available [facility] (Lab) [address] [place], [address], 05/18/2023 14:52:34 05/18/20 23 05/18/2023 COMPR EHENS TRAMAINE METAB OLIC PANEL GFR >60 Refer ence Range : [place] ge GFR Healt hy Adult : >60 mL/mi n/1.7 3 m2 Chron ic Kidne y Disea se: 15-60 mL/mi n/1.7 3 m2 Kidne y Failu re: <15/m L/min /1.73 m2 www.n iddk. nih.g ov The MDRD study equat ion has not been valid ated in child sola <18 years of age; pregn ant women ; the elder ly >85 years of age; or in some racia l or ethni c subgr oups, such as Hispa nics. Outsi de the valid ated kumar eters , estim ated GFR is less accur ate, requi ring clini homer judgm ent on a case- by-ca se basis . Clini homer inter preta tion for other races and ages must be made by the clini grzegorz. The MDRD study equat ion has not been valid ated for the evalu ation of serum creat inine relat ed to nutri [place] l statu s or medic ation usage . For perso ns <18 years of age, a pedia tric GFR calcu lator is avail able on the [facility] websi te: https ://gene w.win michelle.o rg/pr ofess ional s/kdo qi/gf r_cal culat or Not Available [facility] (Lab) [address] [place], [address], 05/18/2023 14:52:34 05/18/20 23 05/18/2023 COMPR EHENS TRAMAINE METAB OLIC PANEL alkaline phosphatase 61 U/L 38-126 Not Available [facility] (Lab) [address] [place], [address], 05/18/2023 14:52:34 05/18/20 23 05/18/2023 COMPR EHENS TRAMAINE METAB OLIC PANEL alanine aminotransfe rase 19 U/L 0-35 Not Available [facility] (Lab) [address] [place], [address], 05/18/2023 14:52:34 05/18/20 23 05/18/2023 COMPR EHENS TRAMAINE METAB OLIC PANEL aspartate aminotransfe rase 29 U/L 15-37 Not Available [facility] (Lab) [address] [place], [address], 05/18/2023 14:52:34 05/18/20 23 05/18/2023 COMPR EHENS TRAMAINE METAB OLIC PANEL bilirubin, total 0.50 mg/dL 0.20-1 .30 Not Available [facility] (Lab) [address] [place], [address], 05/18/2023 14:52:34 05/18/20 23 05/18/2023 COMPR EHENS TRAMAINE METAB OLIC PANEL calcium 9.7 mg/dL 8.4-10 .2 Not Available [facility] (Lab) [address] [place], [address], 05/18/2023 14:52:34 05/18/20 23 05/18/2023 COMPR EHENS TRAMAINE METAB OLIC PANEL total protein 7.5 g/dL 6.3-8. 2 Not Available [facility] (Lab) [address] [place], [address], 05/18/2023 14:52:34 05/18/20 23 05/18/2023 COMPR EHENS TRAMAINE METAB OLIC PANEL albumin 4.4 g/dL 3.4-5. 0 Not Available [facility] (Lab) [address] [place], [address], 05/18/2023 14:52:34 05/18/20 23 05/18/2023 COMPR EHENS TRAMAINE METAB OLIC PANEL globulin 3.1 g/dL 2.6-4. 2 Not Available [facility] (Lab) [address] [place], [address], 05/18/2023 14:52:34 05/18/20 23 05/18/2023 COMPR EHENS TRAMAINE METAB OLIC PANEL A/G ratio 1.4 ratio 1.0-2. 0 Not Available [facility] (Lab) [address] [place], [address], 05/18/2023 14:52:34 05/18/20 23 05/18/2023 LIPID PANEL cholesterol 184 mg/dL 140-19 9 [facility] PAGE NSUS RECOM MENDA TION FOR CELENA STERO L: ADULT CHILD LOW RISK: <200 <170 BORDE RLINE : <200- 239 ----- HIGH RISK: >240 >200 Not Available [facility] (Lab) [address] [place] [address], [id number], 05/18/2023 14:30:12 05/18/20 23 05/18/2023 LIPID PANEL triglyceride s 139 mg/dL 0-150 NIH PAGE NSUS REPOR T RECOM MENDA TION FOR TRIGL YCERI SERINA: ADULT CHILD LOW RISK: <150 ----- BODER LINE: 150-1 99 ----- HIGH RISK: >200 ----- Not Available [facility] (Lab) [address] [place], [address], 05/18/2023 14:30:12 05/18/20 23 05/18/2023 LIPID PANEL HDL cholesterol 51 mg/dL 40- Not Available [facility] (Lab) [address] [place] [address], [address], 05/18/2023 14:30:12 05/18/20 23 05/18/2023 LIPID PANEL LDL cholesterol, calculated 105 mg/dL 0-130 NIH PAGE NSUS REPOR T RECOM MENDA TIONS FOR LDL: ADULT CHILD LOW RISK <130 <110 (OPTI MAL LDL) <100 ----- BORDE RLINE : 130-1 59 ----- HIGH RISK: >160 >130 A TRIGL YCERI DE RESUL T >400 INVAL IDATE S THE CALCU LATIO N FOR LDL FRACT IONAT ION - THE LDL RESUL T WILL NOT BE REPOR GAYLE. Not Available [facility] (Lab) [address] [place], [address], 05/18/2023 14:30:12 05/18/20 23 05/18/2023 T4 FREE free T4 1.99 NG/dL 0.78-2 .19 Not Available [facility] (Lab) [address] [place], [address], 05/18/2023 14:36:03 05/18/20 23 05/18/2023 T3 FREE free T3 4.7 pg/mL 2.77-5 .27 Not Available [facility] (Lab) [address] [place], [address], 05/18/2023 14:36:17 05/18/20 23 05/18/2023 TSH thyroid-stim ulating hormone 0.046 uIU/m L 0.465- 4.680 low Not Available [facility] (Lab) [address] [place], [address], 05/18/2023 14:36:22 02/29/20 22 02/28/2022 US, echoc ardio gram No observ ation record ed. MIGRATION. [place] [address], [place], [address], 07/27/2022 06:08:38 04/07/20 22 XR, chest , 2 view No observ ation record ed. MIGRATION. [facility] [address], [place], [address], 07/27/2022 06:08:38 04/07/20 22 elect kane wheatley am No observ ation record ed. MIGRATION. [facility] [address], [place], [address], 07/27/2022 06:08:38 05/26/20 23 US, thyro id [facility] [address] [place] [address] Patien t Name: MIRLANDE GUPTA Access ion #: [id number] Sex: F : 1960 8 Dictat ed By: Nikolay Marquez Attend ing Physic milli: NORA HIGGINBOTHAM Orderi ng Physic milli: NORA HIGGINBOTHAM Exam Date: 2022 08:02 AM Exam Name: US NECK/H EAD SOFT TISSUE Admitt ing Diagno sis(es ): ULTRAS OUND SOFT TISSUE [facility] INDICA TION: Hypoth yroidi sm TECHNI QUE: Multip le real time sonogr aphic images of the thyroi d were obtain ed. FINDIN GS: The right thyroi d gland measur es 3 cm. The left thyroi d gland measur es approx imatel y 3 cm. The isthmu s measur es 1 mm. There is a 0.6 x 0.6 x 0.6 cm thyroi d nodule in the left inferi or lobe with mixed cystic and solid compos ition, hypoec hoic, wider than tall, smooth margin s, no echoge adrienne foci. Repres ents a TI RADS 2 thyroi d nodule and is not suspic ious. No follow -up is recomm ended. IMPRES [place]: There is a 0.6 x 0.6 x 0.6 cm thyroi d nodule in the left inferi or lobe with mixed cystic and solid compos ition, hypoec hoic, wider than tall, smooth margin s, no echoge adrienne foci. Repres ents a TI RADS 2 thyroi d nodule and is not suspic ious. No follow -up is recomm ended. Electr onical ly Signed by: Nikolay Marquez at 2022 13:24: 05 PM Page 1 [facility] (Imaging) [address] [place] [address], [address], 06/01/2023 11:38:53 Result Notes None recorded. Problems Name Problem SNOMED Code Status Onset Date Resolution Date Notes Provider Name and Address Organization Details Recorded Time Chronic back pain 914970265 Active 2021 Not Available [facility] 3 07:21:50 Blood glucose outside reference range 166580495 Active Not Available [facility] 3 07:21:50 Edema 042954500 Active 2021 Not Available [facility] 3 07:21:50 Low back pain 143012461 Active 2021 Not Available [facility] 3 07:21:50 Dyslipidemia 451338102 Active 2018 Not Available [facility] 3 07:21:50 Neuropathy 992517338 Active 2021 Not Available [facility] 3 07:21:50 Hypothyroidis m 06589555 Active Not Available [facility] 3 07:21:50 Obesity 941670731 Active 2021 Not Available [facility] 3 07:21:50 Cramp in lower limb 765098398 Active Not Available [facility] 3 07:21:50 Pyuria 8978721 Active 2021 Not Available [facility] 3 07:21:50 Anxiety 30209963 Active 2017 Not Available [facility] 3 07:21:50 Vitamin B12 deficiency (non anemic) 42279668 Active 2021 Not Available [facility] 3 07:21:50 Chronic rhinitis 45417305 Active Not Available [facility] 3 07:21:50 Paresthesia 30750847 Active 2021 Not Available [facility] 3 07:21:50 Rhinitis medicamentosa 37864810 Active Not Available [facility] 3 07:21:50 Skin lesion 22297218 Active Not Available [facility] 3 07:21:50 Deficiency of vitamin D3 923462485 Active 2022 Not Available [facility] 3 07:21:50 Vitamin D deficiency 07533237 Active 2022 Not Available [facility] 3 07:21:50 Numbness of hand 163301833 Active 2022 Not Available [facility] 3 07:21:50 Overweight 417444974 Active 2022 Not Available [facility] 3 07:21:50 Problem Notes None recorded. 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 Procedure Notes None recorded. Medical Equipment None Reported. Allergies No known drug allergies Medications Name Sig Start Date Stop Date Status Note LastModified by Organization Details LastModified Time Singulair 10 mg tablet Take 1 tablet every day by oral route. 01/06 completed Not Available Not Available Not Available celecoxib 200 mg capsule 08/04 completed Not Available Not Available Not Available fluoxetine 40 mg capsule TAKE 1 CAPSULE BY MOUTH ONCE DAILY active Not Available Not Available No t Available amoxicillin 500 mg capsule Take 1 capsule 3 times a day by oral route for 7 days. active Not Available Not Available No t Available BD Luer-Silverio Syringe 3 mL 25 x 5/8 USE TO INJECT CYANOCOBA LMIN MONTHLY active Not Available Not Available No t Available azithromyci n 250 mg tablet TAKE 2 TABLETS BY MOUTH ON DAY 1 AND THEN TAKE 1 TABLET BY MOUTH ONCE A DAY ON DAY 2 THROUGH DAY 5 01/20 completed Not Available Not Available Not Available tizanidine 4 mg tablet Take 1 tablet by mouth twice daily active Not Available Not Available No t Available ondansetron HCl 8 mg tablet Take 1 tablet every 8 hours by oral route for 2 days. 06/09 completed Not Available Not Available Not Available meloxicam 15 mg tablet TAKE 1 TABLET BY MOUTH ONCE DAILY active Not Available Not Available No t Available prednisone 20 mg tablet 3tabs x 3 days, 2tabs x 3days, 1 tab x 3 days 01/06 completed Not Available Not Available Not Available spironolact one 100 mg tablet TAKE 1 TABLET BY MOUTH TWICE DAILY active Not Available Not Available No t Available ciprofloxac in 500 mg tablet Take 1 tablet every 12 hours by oral route for 7 days. 06/09 completed Not Available Not Available Not Available acyclovir 800 mg tablet Take 1 tablet 5 times a day by oral route for 7 days. active Not Available Not Available No t Available oxycodone-a cetaminophe n 5 mg-325 mg tablet 08/04 completed Not Available Not Available Not Available alprazolam 0.5 mg tablet TAKE 1 TABLET BY MOUTH ONCE DAILY NEEDED FOR ANXIETY active Not Available Not Available No t Available cyanocobala min (vit B-12) 1,000 mcg/mL injection solution INJECT 1 ML SUBCUTANE OUSLY ONCE EVERY MONTH 2022 active Not Available Not Available Not Avai lable gabapentin 300 mg capsule TAKE 1 CAPSULE BY MOUTH THREE TIMES DAILY (TAKE ONE CAPSULE EVERY DAY AT BEDTIME FOR 3 DAYS, THEN TAKE ONE CAPSULE BY MOUTH TWICE DAILY FOR 3 DAYS, THEN TAKE ONE CAPSULE BY MOUTH 3 TIMES DAILY FOR REMAINING SUPPLY) 10/19 completed Not Available Not Available Not Available diclofenac sodium 75 mg tablet,jaycob yed release TAKE 1 TABLET BY MOUTH TWICE DAILY 04/15 completed Not Available Not Available Not Available levothyroxi ne 200 mcg tablet TAKE 1 TABLET BY MOUTH ONCE DAILY 05/18 completed Not Available Not Available Not Available alprazolam 2 mg tablet 01/03 completed Not Available Not Available Not Available Synthroid 112 mcg tablet TAKE 1 TABLET BY MOUTH ONCE DAILY active Not Available Not Available No t Available gabapentin 100 mg capsule Take 1 capsule twice a day by oral route. 11/11 completed Not Available Not Available Not Available ergocalcife rol (vitamin D2) 1,250 mcg (50,000 unit) capsule TAKE 1 CAPSULE BY MOUTH ONCE A WEEK active Not Available Not Available No t Available oxycodone-a cetaminophe n 7.5 mg-325 mg tablet 01/03 completed Not Available Not Available Not Available methylpredn isolone 4 mg tablets in a dose pack uud 05/18 completed Not Available Not Available Not Available ondansetron 4 mg disintegrat ing tablet 08/04 completed Not Available Not Available Not Available fluoxetine 20 mg capsule TAKE 1 CAPSULE BY MOUTH ONCE DAILY ALONG WITH 40 MG CAPSULE FOR TOTAL DAILY DOSE OF 60 MG 01/26 completed Not Available Not Available Not Available naproxen 500 mg tablet TAKE 1 TABLET BY MOUTH TWICE DAILY NEEDED FOR PAIN active Not Available Not Available No t Available hydroxyzine pamoate 25 mg capsule TAKE 1 CAPSULE BY MOUTH 4 TIMES DAILY NEEDED FOR ANXIETY 02/15 completed Not Available Not Available Not Available nitrofurant oin monohydrate /macrocryst als 100 mg capsule TAKE 1 CAPSULE BY MOUTH TWICE DAILY active Not Available Not Available No t Available pregabalin 75 mg capsule TAKE 1 CAPSULE BY MOUTH TWICE DAILY 05/18 completed Not Available Not Available Not Available pregabalin 100 mg capsule 02/15 completed Not Available Not Available Not Available pregabalin 150 mg capsule TAKE 1 CAPSULE BY MOUTH THREE TIMES DAILY active Not Available Not Available No t Available One-A-Day Women's 50 Plus 2020 active Not Available Not Available Not Avai lable BD Insulin Syringe Ultra-Fine 1 mL 31 gauge x /16 USE DIRECTED active Not Available Not Available No t Available Flonase Allergy Relief 50 mcg/actuati on nasal spray,suspe nsion 2 spray each nostril daily 04/01 completed Not Available Not Available Not Available Afluria Qd 2019- (36 mos up)(PF)60 mcg (15 mcg x4)/0.5 mL IM syringe ADM 0.5ML IM UTD 12/10 completed Not Available Not Available Not Available Mounjaro 2.5 mg/0.5 mL subcutaneou s pen injector INJECT 0.5 ML WEEKLY FOR 4 WEEKS THEN GO TO 5 MG WEEKLY FOR 4 WEEKS active Not Available Not Available No t Available Vitals Date Recorded Body height Body mass index (BMI) Body weight Body temperature Heart rate Systolic blood pressure Diastolic blood pressure Provider Name and Address Organization Details Last Updated DateTime 3 160.02 cm 38.8 kg/m2 79083.7 3 g 97.7 [degF] 80 /min 128 mm[Hg] 88 mm[Hg] BASSEM Rosen [facility] [employer] [facility] 3 10:46:01 Date Recorded Body height Body mass index (BMI) Body weight Body temperature Heart rate Systolic blood pressure Diastolic blood pressure Provider Name and Address Organization Details Last Updated DateTime 3 160.02 cm 41.1 kg/m2 385625. 43 g 98.3 [degF] 84 /min 124 mm[Hg] 78 mm[Hg] Светлана reaves RN [facility] 3 10:23:01 Date Recorded Body mass index (BMI) Body height Heart rate Body temperature Body weight Systolic blood pressure Diastolic blood pressure Provider Name and Address Organization Details Last Updated DateTime 2 42.9 kg/m2 160.02 cm 77 /min 97.6 [degF] 625183. 35 g 122 mm[Hg] 78 mm[Hg] Not Available [facility] 3 05:57:55 Date Recorded Body mass index (BMI) Body height Heart rate Body temperature Body weight Systolic blood pressure Diastolic blood pressure Provider Name and Address Organization Details Last Updated DateTime 2 40.9 kg/m2 160.02 cm 65 /min 97.7 [degF] 549356. 84 g 124 mm[Hg] 82 mm[Hg] Not Available [facility] 3 05:57:55 Date Recorded Body height Body mass index (BMI) Body weight Body temperature Heart rate Systolic blood pressure Diastolic blood pressure Provider Name and Address Organization Details Last Updated DateTime 3 160.02 cm 42.5 kg/m2 563144. 17 g 98.2 [degF] 74 /min 118 mm[Hg] 80 mm[Hg] BASSEM Rosen [employer] 3 11:04:39 Social History Question Answer Notes LastModified by Organizat ion Details LastModified Time Tobacco Smoking Status Never Smoker [facility]/04/2022 10:34:19 Do You Have An Advance Directive? No [id number] Information not available 07/27/2022 What Is Your Level Of Caffeine Consumption? Moderate [id number] Information not available 07/27/2022 How Much Tobacco Do You Chew? None [id number] Information not available 07/27/2022 In The 14 Days Before Symptom Onset, Have You Had Close Contact With A Laboratory-confir med COVID-19 While That Case Was Ill? No Information not available 08/04/2022 In The 14 Days Before Symptom Onset, Have You Had Close Contact With A Person Who Is Under Investigation For COVID-19 While That Person Was Ill? No Information not available 08/04/2022 What Type Of Diet Are You Following? REGULAR [id number] Information not available 07/27/2022 Which Illicit Or Recreational Drugs Have You Used? None Information not available 08/04/2022 What Is The Highest Grade Or Level Of School You Have Completed Or The Highest Degree You Have Received? [id number] Information not available 08/04/2022 Have There Been Any Changes To Your Family Or Social Situation? No Information no t available 08/04/2022 What Is The Fluoride Status Of Your Home? Unknown Information not available 08/04/2022 Do You Use Insect Repellent Routinely? No Information not available 08/04/2022 Where [facility] You Live? [facility] Information not available 08/04/2022 Do You Have A Medical Power Of Business Objects Analyst? No Information not available 08/04/2022 What Was The Date Of Your Most Recent Tobacco Screening? 05/18/2023 [email or web address] Information not available 05/18/2023 Have You Ever Been Counseled For Unhealthy Alcohol Use? No Information not available 08/04/2022 Do You Have Any Pets? Yes Information not available 08/04/2022 What Is Your Relationship Status? [id number] Information not available 07/27/2022 Do You Use Your Seat Belt Or Car Seat Routinely? Yes Information not available 08/04/2022 Do You Have Smoke And Carbon Monoxide Detectors In Your Home? Yes Information not available 08/04/2022 Are You Passively Exposed To Smoke? No Information no t available 08/04/2022 Are There Any Smokers In Your House? No Information not available 08/04/2022 How Much Tobacco Do You Smoke? No [id number] Information not available 07/27/2022 What Types Of Sporting Activities Do You Participate In? None Information not available 08/04/2022 Do You Use Sunscreen Routinely? No Information not available 08/04/2022 Has Tobacco Cessation Counseling Been Provided? No Information not available 08/04/2022 How Many Years Have You Smoked Tobacco? 0 Information not available 08/04/2022 Have You Recently Traveled Abroad? No Information not available 08/04/2022 Do You Have Any Dietary Restrictions? No Information not available 08/04/2022 Sex: Female Functional Status Question Answer Note LastModified by Organizat ion Details LastModified Time Do you use any illicit or recreational drugs? No Information not available 08/04/2022 Do you or have you ever used any other forms of tobacco or nicotine? No Information not available 08/04/2022 What is your level of alcohol consumption? Moderate [id number] Information not available 07/27/2022 Do you or have you ever used smokeless tobacco? Never used smokeless tobacco [id number] Information not available 07/27/2022 Are you currently employed? 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 Never used electronic cigarettes Information not available 08/04/2022 What is your exercise level? None [id number] Information not available 07/27/2022 Mental Status Question Answer Note LastModified by Organization D etails LastModified Time Do you feel stressed (tense, restless, nervous, or anxious, or unable to sleep at night)? [id number] Information not available 08/04/2022 Family History Relationship Description Onset Age of this Age Resolved Age Notes LastModified by Organization Details LastModified Time Mother General health good [email or web address] Not available 01/2023 10:34:19 Father Myocardial infarction deceas ed [id number] Not available 07/27/2022 05:55:55 Medical History Condition Response NERVE DISEASE N BLINDNESS N RHEUMATIC FEVER N KIDNEY STONES N BLADDER PROBLEMS N MRSA N OTHER # 1 Y POLIO N LUNG DISEASE/DISORDER N RADIATION / CHEMOTHERAPY N COPD N Other # 2 N BLOOD DISEASES N EAR OR HEARING PROBLEMS N MUMPS N DEPRESSION (INCLUDING POST ) Y BOWEL PROBLEMS N STROKE/TIA N ULCERS N BENIGN PROSTATIC HYPERPLASIA N MEASLES N MYOCARDIAL INFARCTION N OBESITY N GERD/NAUSEA N ANEURYSM N URINARY/BLADDER/KIDNEY PROBLEMS N CORONARY ARTERY DISEASE (CAD) N ADDICTION CONCERNS N Impotence N ENDOMETRIOSIS N USE OF BLOOD THINNERS N SKIN PROBLEMS N GASTROINTESTINAL DISORDER N PERIPHERAL VASCULAR DISEASE N MUSCLE,JOINT OR BONE PROBLEMS N GASTROINTESTINAL BLEEDING N BLOOD CLOTS N ASTHMA N CATARACTS N ERECTILE DYSFUNCTION N VARICOSITIES N GI PROBLEMS N Low Testosterone N INFERTILITY N AIDS/HIV N CHEMOTHERAPY / RADIATION N LIVER DISEASE N MALE HYPOGONADISM N HYPERTENSION N Deficiency N TOURETTE'S N ANXIETY DISORDER Y BLOOD TRANSFUSION N ANEMIA/BLOOD DISORDER N CHRONIC EAR INFECTIONS N BRONCHITIS N TUBERCULOSIS N GLAUCOMA N FOOT PROBLEM N DIVERTICULITIS N SLEEP APNEA N CHICKENPOX N INFECTIOUS DISEASE N PROSTATE N HEART ARRHYTHMIA N INSOMNIA N HIGH CHOLESTEROL / HYPERLIPIDEMIA Y EYE PROBLEMS N HYPERTHYROIDISM N EDEMA N CHRONIC PAIN SYNDROME N HYPOTHYROIDISM Y CAROTID BLOCKAGE N CONSTIPATION N BACK / NECK PROBLEMS N HAVE YOU BEEN HOSPITALIZED OR SEEN IN [facility] IN THE PAST YEAR ? N ATHEROSCLEROSIS N BREAST PROBLEMS N DIALYSIS N ECZEMA N OSTEOPOROSIS N ARTHRITIS N APPENDICITIS N DIABETES, TYPE N BAD TEETH N ENT N HEARTBURN / REFLUX N AUTISM SPECTRUM DISORDER (ASD) N HEPATITIS / LIVER DISEASE N GOUT N SLEEP DISORDER N ALZHEIMER'S DISEASE N Brain Problems N DEMENTIA N HERPES N SEIZURES/EPILEPSY N HEADACHES/MIGRAINES N VASCULAR DISEASE N PACEMAKER N Blood Disorder N DIZZINESS N HEART DISEASE/HEART PROBLEMS N KIDNEY DISEASE N MULTIPLE SCLEROSIS N CANCER: SPECIFY N CARDIAC ARRHYTHMIA N ATRIAL FIBRILLATION N Gall Stones N PULMONARY EMBOLISM N AUTOIMMUNE DISEASE N Gynecological HistoryNo gynecological history recorded. Obstetrics History GPAL:G 0 P 0 0 0 0 Immunizations Vaccine Type Date Status Note Provider Nam e and Address Organization Details Recorded Time COVID-19 vaccine, vector-nr, rS-Ad26, PF, 0.5 mL 08/04/2020 completed Not Available [facility] 3 07:21:51 COVID-19 vaccine, vector-nr, rS-Ad26, PF, 0.5 mL 05/02/2021 completed Not Available [facility] 3 07:21:51 Influenza, split virus, quadrivalent, PF 04/01/2021 completed Not Available [facility] 3 07:21:51 Past Encounters Encounter ID Performer Location Encounter Start Date Encounter Closed Date Diagnosis/Indication Diagnosis SNOMED-CT Code Diagnosis ICD10 Code Diagnosis Note [id number] Be Higginbotham MD Juan F_[facility] Internal Med [place] [address] [place] [address] 12/10/2020 00:00:00 12/10/2020 22:42:42 [id number] MD LAINA De Leon_[facility] Internal Med [place] [address] [place] [address] 04/01/2021 00:00:00 04/11/2021 12:14:49 [id number] Be Higginbotham MD [facility] Internal Med [place] [address] [place] [address] [place] [address] 07/08/2021 00:00:00 08/01/2021 10:06:54 [id number] Be Higginbotham MD [facility] Internal Med [place] [address] [place] [address] [place] [address] 10/19/2021 00:00:00 10/25/2021 12:26:13 [id number] Be Higginbotham MD [facility] Internal Med [place] [address] [place] [address] [place] [address] 02/15/2022 00:00:00 02/20/2022 16:18:19 [id number] Be Higginbotham MD [facility] Internal Med [place] [address] [place] [address] [place] [address] 04/07/2022 00:00:00 04/08/2022 16:05:12 [id number] Be Higginbotham MD [facility] Internal Med [place] [address] [place] [address] [place] [address] 08/04/2022 10:31:33 08/04/2022 11:47:44 Dyslipidemia 912985287 E78.5 Anxiety 86645318 F41.9 Neuropathy 424188179 G62 .9 Hypothyroidism 92417594 E03.9 [id number] Be Higginbotham MD [facility] Internal Med [place] [address] [place] [address] [place] [address] 01/26/2023 10:10:18 01/26/2023 10:40:09 Dyslipidemia 956092560 E78.5 Hypothyroidism 71371303 E03.9 Blood gluc ose outside reference range 151344962 R73.09 Long-term drug therapy 460813866 Z79.899 Vitamin D deficiency 347 97053 E55.9 [id number] Be Higginbotham MD [facility] Internal Med [place] [address] [place] [address] [place] [address] 05/18/2023 10:56:26 05/18/2023 11:48:04 Overweight 605374756 E66.3 Dyslipidemia 756763895 E 78.5 Hypothyroidism 60658357 E03.9 Anxiety 12466664 F41.9 Obesity 464179109 E66.9 Health Concerns Section Related Observation LastModified by Organization Detai ls LastModified Time None Recorded Concern Status LastModified by Organization Details LastModified Time None Recorded Advance Directives Directive N: Payers Encounter Date Sequence Insurance Name Policy Number Policy [place] Covered Member ID [place] Member ID Guarantor Name 08/04/2022 1 [place] [id number] Mirlande L Db [id number] Debora F Db 01/26/2023 1 [place] [id number] Mirlande L Db [id number] Debora F Db 05/18/2023 1 [place] [id number] Mirlande L Db [id number] Debora F Db Notes Date Note Type Note Provider Name and Address Organization Details Recorded Time 08/04/2022 text/html Dyslipidemia medina s try to follow low-fatAnxiety stable on current medsNeuropathy some numbness down the left legHad hip replacement there was some complications with fracture of the stem in had to be stabilizedVenous insufficiency legs Be Higginbotham MD [address] [place] [address], [place], [address], [employer] 08/06/2022 18:07:59 01/26/2023 text/html Dyslipidemia medina s try to follow low-fatAnxiety stable on current medsNeuropathy some numbness down the left legHad hip replacement there was some complications with fracture of the stem in had to be stabilizedVenous insufficiency legs Be Higginbotham MD [address], [place], [address], [email or web address] 01/26/2023 23:26:52 05/18/2023 text/html Dyslipidemia medina s try to follow low-fatAnxiety stable on current medsNeuropathy some numbness down the left legHad hip replacement there was some complications with fracture of the stem in had to be stabilizedVenous insufficiency legsObesity diets have not been successful Be Higginbotham MD [address], [facility] [address], [place], [address], [place] [facility] 05/18/2023 22:01:16 OBGyn Episode No OBEpisode recorded.
--- OUTSIDE RECORDS SUMMARY | 2024-10-28 09:51 | XMS_ITS ---
Author Organization [facility] Address [address] [facility] [address] [place] [address] Care Team Providers Care Email Marketing Intern Name Role Phone Neftaly Be Primary Care Provider Be Alejandre Unavailable [phone] ALLERGIES No Known Allergies REASON FOR VISIT Lumbar MEDICATIONS Medication SIG (Take, Route, Fr equency, Duration) Notes Start Date End Date Status Fluoxetine Active Pregabalin Active Vitamin D Active Spironolactone Activ e buPROPion HCl Active Naproxen Active PROBLEMS Problem Type ICD Code Onset Dates Problem Status W/U Status Risk SNOMED Code Notes Problem Degenerative joint disease of right hip (M16.11) Active confirmed Localized, primary osteoarthritis of the pelvic region and thigh (890927760) Problem Contracture, right hip (M24.551) Active confirmed Contracture of hip joint (350425217) Problem Scoliosis (M41.9) Active confirmed Scoliosis (324291143) Problem 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 Lumbosacral spondylosis without myelopathy (94023988) VITAL SIGNS BMI 40.74 kg/m2 05/01/2024 Height 63 in 05/01/2024 Weight 230 lbs 05/01/2024 Encounters Encounter Location Date Provider Diagnosis [facility] [address] [facility] [address] [place] [address] 05/01/2024 Be Guerrero Hip pain, right M25.551 [...] - M47.816) PLAN OF TREATMENT No Information Progress Notes * Examination Category Sub-Category Detail Notes General Examination GENERAL: Patient is a n alert and cooperative female who moves about the room in a cautious fashion. She does not walk with an obvious list or limp. She does maintain a slight forward flexed position about the waist by about 20 degrees NECK: Exam reveals tension and loss of cervical lordosis. ROM of the cervical spine is reduced in extension. Spurling's test negative HEART: Regular rate and rhy thm LUNGS: Clear to auscultatio n in all montejo ABDOMEN: No tenderness to pal pation, bowel sounds present all four quadrants NEUROLOGIC: Upper extremity neur ologic examination reveals symmetric DTR's, intact sensation, 5+/5+ motor strength. Linda's sign negative. Lower extremity neurologic examination reveals decreased sensation involving the right lateral calf and right dorsal foot. Right EHL strength is 3+/5+, right anterior tibialis strength is 4+/5+, foot dorsiflexor strength is minimally diminished. Reflexes are 2+. SLR testing negative. No clonus, negative Babinski's sign involving the lower extremities SKIN: No evidence of skin rashes or dermal lesions MUSCULOSKELETAL: Thoracic exam reveal s mild kyphosis through the cervicothoracic junction. There is mild tension. Lumbar exam reveals no tenderness to palpation. There is tension. No scar. ROM of the lumbar spine reveals forward flexion to 80 degrees, extension to 20 degrees, side-bending to 35 degrees PSYCHIATRIC: Mood and affect appe ar normal HEENT: No masses, PERRLA, E OM intact, no nasal drainage, no lymphadenopathy JOINTS: Right hip internal r otation is diminished. Right hip log roll testing is mildly positive. She appears to have evidence of mild hip flexion contracture on the right. Left hip ROM is normal. There is no significant hamstring tightness HEMATOLOGIC: No evidence of exces sive bruising or bleeding Plain X-ray Imaging Studies LUMBAR SPINE X-RAYS: Five view x-rays through the lumbar spine reveal evidence of left total hip arthroplasty, right hip degenerative joint disease with minimal joint space narrowing, periarticular sclerosis. Lumbar spine images reveal evidence of scoliosis to the right. Disc degeneration with disc space collapse, spondylosis all levels through the lumbar spine. Facet degeneration L2 to S1. No fracture. No evidence of spondylolysis or spondylolisthesis
[2024-10-28 09:57] LABS: Alanine Aminotransferase 33 U/L (6-35); Albumin Level 4.5 g/dL (3.5-5.1); Alkaline Phosphatase 63 U/L (38-126); Anion Gap 11 mmol/L (4-12); Aspartate Amino Transferase 43 U/L (14-36); Bilirubin,Total 0.6 mg/dL (0.2-1.3); Blood Urea Nitrogen 12 mg/dL (7-17); Calcium 9.6 mg/dL (8.4-10.2); Carbon Dioxide 23 mmol/L (22-30); Chloride 107 mmol/L (98-107); Estimated CRCL calculation 76 ml/min; Estimated Glomerular Filt Rate > 60; Glucose 98 mg/dL (65-110); Potassium 3.8 mmol/L (3.4-5.0); Sodium 141 mmol/L (137-145)
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
--- NOTE | 2024-10-28 11:47 | ED_ITS ---
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 Bahena and was later transferred to [facility] were she spent a wk and did not like the place and was later discharged to home , where she is getting home PT , she states he has no strength in the lower ext. has been falling several time , is having rough time taking care at home, this morning she stated was trying to get out of the bed and fell ,she state has no strength in the lower ext. denies any fever or chills , states he is helpless Onset (ago): week(s) Location: lower extremity Radiation: non-radiation Severity: moderate Pain Consistency: constant Relieving factors: none Exacerbating factors: none Associated symptoms: denies other symptoms Related Data Home Medications ?Medication ?Instructions ?Recorded ?Confirmed ?Last Taken ?Type alprazolam 0.5 mg tablet 0.5 mg PO DAILY 02/02/22 10/28/24 Unknown History diclofenac sodium 75 mg 75 mg PO BID 02/02/22 10/28/24 Unknown History tablet,delayed release fluoxetine 20 mg capsule 20 mg PO DAILY 02/02/22 10/28/24 Unknown History levothyroxine 200 mcg capsule 200 mcg PO DAILY 02/02/22 10/28/24 Unknown History spironolactone 100 mg tablet 100 mg PO DAILY 02/02/22 10/28/24 Unknown History aspirin 81 mg tablet,delayed 81 mg PO DAILY 10/28/24 10/28/24 Unknown History release (Adult Low Dose Aspirin) Allergies Allergy/AdvReac Type Severity Reaction Status Date / Time No Known Allergies Allergy Verified 10/28/24 07:45 Review of Systems 2 Review of Systems: All systems reviewed & are unremarkable except as noted in HPI and below Constitutional: Constitutional: Reports no additional constitutional complaints Eyes: Eyes: Reports no additional eye complaints ENT: Reports system reviewed and no additional complaints, except as documented Cardiovascular: Cardiovascular: Reports no additional cardiovascular complaints Respiratory: Respiratory: Reports no additional respiratory complaints Gastrointestinal: Gastrointestinal: Reports no additional gastrointestinal complaints Musculoskeletal: Musculoskeletal: Reports as per HPI Neurologic: Reports system reviewed and no additional complaints, except as documented PMFSH Past Medical History Medical History Arthritis Surgical History Surgical History History of surgery Corrective female 1983 Social History Social History Smoking status: Never smoker Alcohol intake: current Drinks per week: 2 Substance use: never Living arrangements: with family Occupation/Education: occupation Additional occupation/education comments: [employer] Gender identity (if verbalized by the patient): Female Exam 2 Narrative: GENERAL: Well-appearing, well-nourished, and in no acute distress. HEAD: Normocephalic, atraumatic. EYES: PERRLA and EOMI. ENT: Nares clear, no rhinorrhea or epistaxis. Mucous membranes moist. NECK: Supple. CHEST: Clear to auscultation. No respiratory distress. HEART: Regular rate and rhythm. No murmur heard. Normal peripheral pulses. ABDOMEN: Soft, nontender, nondistended, normal active bowel sounds. EXTREMITIES: Normal range of motion. No edema has old bruised on the upper ext. SKIN: Warm, dry, no rash. NEURO: No focal deficits. Alert and oriented x3. PSYCH: Normal mood and affect. Course Course Emergency Course: I had a long discussion with the patient and about her condition. She requires extensive rehab. They were unhappy at the long-term. Be. Her lab work is unremarkable. Been admit her to the hospital consult PT OT for evaluation and for possible placement to acute rehab facility. The she was informed that to she was getting admitted for PT and OT evaluation. I notified the hospitalist accepted the patient Vital Signs Vital signs: Vital Signs Temperature 36.4 C 10/28/24 07:37 Pulse Rate 74 10/28/24 07:37 Respiratory Rate 20 10/28/24 07:37 Blood Pressure 122/68 10/28/24 07:37 Pulse Oximetry 98 10/28/24 07:37 Oxygen Delivery Room Air 10/28/24 07:37 Temperature 36.4 C 10/28/24 07:37 Pulse Rate 63 10/28/24 10:40 Respiratory Rate 18 10/28/24 10:40 Blood Pressure 130/75 10/28/24 10:40 Pulse Oximetry 96 10/28/24 10:40 Oxygen Delivery Room Air 10/28/24 07:37 Medical Decision Making Vital Signs Vital Signs: Vital Signs Temperature 36.4 C 10/28/24 07:37 Pulse Rate 74 10/28/24 07:37 Respiratory Rate 20 10/28/24 07:37 Blood Pressure 122/68 10/28/24 07:37 Pulse Oximetry 98 10/28/24 07:37 Oxygen Delivery Room Air 10/28/24 07:37 Temperature 36.4 C 10/28/24 07:37 Pulse Rate 63 10/28/24 10:40 Respiratory Rate 18 10/28/24 10:40 Blood Pressure 130/75 10/28/24 10:40 Pulse Oximetry 96 10/28/24 10:40 Oxygen Delivery Room Air 10/28/24 07:37 Lab Data Lab results reviewed: Yes I reviewed the patient's lab results. 10/28/24 09:42 10/28/24 09:42 Labs: Lab Results 10/28/24 Range/Units 09:42 WBC 5.2 (4.5-10.0) K/mm3 RBC 4.01 L (4.2-5.4) M/mm3 Hgb 12.1 (12.0-15.0) g/dL Hct 38.4 (37.0-47.0) % MCV 95.8 (80-100) fl MCH 30.2 (26-34) pg MCHC 31.5 L (32-36) g/dl RDW 13.6 (11.5-14.5) % Plt Count 268 (150-375) k/mm3 MPV 9.5 (7.4-10.4) fl Immature Gran % (Auto) 0.4 (0-0.5) % Neut % (Auto) 70.9 (45.5-73.1) % Lymph % (Auto) 17.9 L (18.3-44.2) % Brooks % (Auto) 7.5 (2.6-8.5) % Eos % (Auto) 2.5 (0-4.4) % Baso % (Auto) 0.8 (0.2-1.2) % Lymph # (Auto) 0.93 (0.9-3.2) K/mm3 Brooks # (Auto) 0.4 (0.1-0.6) K/mm3 Eos # (Auto) 0.1 (0-0.3) K/mm3 Baso # (Auto) 0.0 (0.0-0.1) K/mm3 Abs Immat Gran (auto) 0.02 (0.00-0.031) K/mm3 Absolute Neuts (auto) 3.7 (1.3-6.7) K/mm3 Absolute Nucleated RBC 0.000 (0.0-0.012) K/mm3 Nucleated RBC % 0.0 (0.0-0.2) % Sodium 141 (137-145) mmol/L Potassium 3.8 (3.4-5.0) mmol/L Chloride 107 (98-107) mmol/L Carbon Dioxide 23 (22-30) mmol/L Anion Gap 11 (4-12) mmol/L BUN 12 (7-17) mg/dL Creatinine 0.69 L (0.7-1.0) mg/dL Estim Creat Clear Calc 76 ml/min Estimated GFR > 60 (59 - ) Glucose 98 (65-110) mg/dL Calcium 9.6 (8.4-10.2) mg/dL Total Bilirubin 0.6 (0.2-1.3) mg/dL AST 43 H (14-36) U/L ALT 33 (6-35) U/L Alkaline Phosphatase 63 (38-126) U/L Total Protein 8.0 (6.3-8.2) g/dL Albumin 4.5 (3.5-5.1) g/dL Discharge Plan Discharge Clinical Impression: Multiple falls, Lower extremity dysfunction Patient Disposition: Still a Patient Condition: Stable Patient Language: Citizen Of [place] Prescriptions: No Action fluoxetine 20 mg capsule 20 mg PO DAILY alprazolam 0.5 mg tablet 0.5 mg PO DAILY spironolactone 100 mg tablet 100 mg PO DAILY levothyroxine 200 mcg capsule 200 mcg PO DAILY diclofenac sodium 75 mg tablet,delayed release (DR/EC) 75 mg PO BID aspirin [Adult Low Dose Aspirin] 81 mg tablet,delayed release (DR/EC) 81 mg PO DAILY Follow-up/Referrals: Dixon,CARMEN Leahy [Primary Care Provider] - Time of Disposition: 12:05
--- OUTSIDE RECORDS SUMMARY | 2024-10-28 12:52 | XMS_ITS | Clinical Summary ---
Author Organization [facility] Address [address] [place] [address] Phone Care Team Providers Care Social Work Program Coordinator Name Role Phone Unavailable Primary Care Provider Unavailabl e Social History Tobacco Use Types Packs/Day Years Used Date Smoking Tobacco: Never Assessed Comments Unknown Sex and Gender Information Value Date Recorded Sex Assigned at Not on file Legal Sex Female 2:29 PM [employer] Gender Identity Not on file Sexual [...]
--- OUTSIDE RECORDS SUMMARY | 2024-10-28 12:52 | XMS_ITS | Referral Summary ---
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 Name Role Phone Be Higginbotham MD Primary Care Provider [phone] Donn Bahena MD Unavailable [phone] Matthew Crouch OT Unavailable Unavailable Jeanine Wilson Unavailable [phone] Encounters Date Type Department Care Team Description 10/28/2024 Home Care Visit [address] [address] [place] [address] Quentin Arellano, PT CASE COMMUNICATION 10/25/2024 Telephone [facility] [address] [place] [address] [address] [place] [address] Jeanine Wilson PA 10/02/2024 Home Care Visit [address] [place] [address] Elizabeth Baldwin RN SN TRIAGE ENCOUNTER 09/30/2024 Home Care Visit [address] [place] [address] Isabella Paulino, RN NURSE MED RECON FOR THERAPY 09/28/2024 Home Care Visit [address] [place] [address] Isabella Paulino, GIOVANNY NURSE MED RECON FOR THERAPY 09/27/2024 Home Care Visit [address] [place] [address] Danielle Mireles, RN NURSE MED RECON FOR THERAPY 09/26/2024 Home Care Visit [address] [place] [address] Danielle Mireles, RN NURSE MED RECON FOR THERAPY 09/25/2024 Plan of Care Documentation [address] [place] [address] 09/25/2024 Home Care Visit [address] [place] [address] Quentin Arellano, PT TELEPHONE ENCOUNTER 09/25/2024 1:00 PM CDT Home Care Visit [address] [place] [address] Quentin Arellano, PT PT OASIS START OF CARE 09/23/2024 Home Care Visit [address] [place] [address] Quentin Arellano, PT TELEPHONE ENCOUNTER 09/20/2024 Home Care Visit [address] [place] [address] Quentin Arellano, PT TELEPHONE ENCOUNTER 09/20/2024 Telephone [facility] [address] [facility] [address] [place] [phone] Jeanine Wilson PA 09/20/2024 Home Care Visit [address] [place] [address] Quentin Arellano, PT CASE COMMUNICATION 09/19/2024 Home Care Visit [address] [place] [address] Quentin Arellano, PT TELEPHONE ENCOUNTER 09/17/[address] [place] [address] Edelmira Crawford RN 09/17/2024 Travel 09/17/2024 Telephone [facility] [address] [place] [address] [address] [place] [address] Jeanine Wilson PA 09/17/2024 1:30 PM CDT Telemedicine [facility] [address] [place] [address] [address] [place] [address] Jeanine Wilson PA Aftercare following right hip joint replacement surgery (Primary Dx) 09/02/2024 10:17 AM CDT - 09/02/2024 11:59 PM CDT Hospital Encounter [facility] Emergency, Room R Discharge Disposition: Discharge to home or self care 08/26/2024 7:52 AM CDT - 09/02/2024 7:51 PM CDT Hospital Encounter [facility] [address] [place] [address] Donn Bahena MD Primary osteoarthritis of right hip; Neuropathy Discharge Disposition: Discharge to SNF 08/26/2024 9:55 AM CDT - 08/26/2024 12:20 PM CDT Surgery [facility] Operating Room 1 [place] [address] Donn Bahena MD Right Total Hip Arthroplasty 08/26/2024 9:10 AM CDT Anesthesia Event [facility] Operating Room [address] [place] [address] Jr Hull MD 08/22/2024 Telephone [facility] [address] [place] [address] [address] [place] [address] Donn Bahena MD Surgery Clearance 08/19/2024 7:06 AM CDT - 08/19/2024 11:59 PM CDT Hospital Encounter [address] [address] Pre-operative exam Discharge Disposition: Discharge to home or self care 08/17/2024 9:45 AM CDT Lab [address] [address] Primary osteoarthritis of right hip; Pre-operative exam 08/17/2024 9:25 AM CDT - 08/17/2024 11:59 PM CDT Hospital Encounter [facility] 1 [place] [address] Pre-operative exam Discharge Disposition: Discharge to home or self care 08/14/2024 Telephone [facility] [address] [facility] [address] [place] [address] Donn Bahena MD from Last [...] by a home health clinician.] 40 tablet 025 Active Additional Information Patient not taking.Reported on 09/30/2024 senna-docusate (PERICOLACE) 8.6-50 mgIndications:co nstipation [The details of the medication are not available because there are pending changes by a home health clinician.] 60 tablet 2 025 Active Additional Information Patient not taking.Reported on 09/30/2024 ergocalciferol (VITAMIN D) 50,000 unit capsule Take 1 capsule (50,000 Units total) by mouth once a week 4 capsule 025 Active ascorbic acid (VITAMIN C) 500 mg tablet,chewable Take 1 tablet/chew tab (500 mg total) by mouth daily 30 tablet/robert w tab 025 Active pregabalin (LYRICA) 150 mg capsuleIndicatio ns:Neuropathy [The details of the medication are not available because there are pending changes by a home health clinician.] 90 capsule 025 Active Additional Information Patient not taking.Reported on [...] mcg total) by mouth daily 30 tablet 025 Active FLUoxetine (PROzac) 40 mg capsuleIndicatio ns:depression Take 80 mg by mouth daily. rx # [id number] Indications: depression Active pregabalin (LYRICA) 75 mg capsuleIndicatio ns:Postoperative Acute Pain Take 75 mg by mouth 2 (two) times a day. rx # [id number] Indications: acute pain following an operation Active buPROPion XL (Wellbutrin XL) 300 mg 24 hr tabletIndication s:Anxiety with Depression Take 300 mg by mouth every morning. rx # [id number] Indications: anxiousness associated with depression Active naproxen (NAPROSYN) 500 mg tabletIndication s:Pain Take 500 mg by mouth 2 (two) times a day as needed for pain. rx # [id number] Indications: pain Active celecoxib (CeleBREX) 200 mg [...] materials from doctor or pharmacy Never 09/25/2024 [facility] Utilities Answer Date Recorded In the past 12 months has th e electric, gas, oil, or water company threatened to shut off services in your [...] often do you attend chur ch or rastafari services? Patient declined 08/27/2024 Do you belong to any clubs o r organizations such as roman catholic groups, unions, fraternal or athletic groups, or [...] any time in the past 12 [address] [place], were you homeless or living in a alf (including now)? No 08/27/2024 Personal Safety Answer Date Recorded Have you ever been in or are you currently in a harmful physical or emotional relationship or is someone making you feel afraid or unsafe? 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 Gender Identity Not on file Sexual Orientation [...] on file Medical Devices Implanted Type Area Marketing Analytics Analyst Device Identifier Shelf Expiration Date Model / Serial / Lot [employer] [place] 6.5mm 35mm Acetabular Cancellous Screw Bone Sterile 1217-35-500 - [id number] Implanted:Qty: 1 on 05/02/2022 by Donn Bahena MD at [facility] Left: Hip [employer] 01/27/2032 1217-35-500 / / [id number] [employer] [place] 52mm Sector Hip Shell Acetabular Gription Sterile Latex Free [id number] - [id number] Implanted:Qty: 1 on 05/02/2022 by Donn Bahena MD at [facility] Left: Hip [employer] 10/27/2031 [id number] / / [id number] [employer] [place] 52mm 36mm Hip Neutral Liner Acetabular Altrx Sterile Latex Free [id number] - [id number] Implanted:Qty: 1 on 05/02/2022 by Donn Bahena MD at [facility] Left: Hip [employer] 08/26/2026 [id number] / / [id number] [employer] Actis Collared Hip 05/11 4 Standard Offset Stem Femoral [id number] - [id number] Implanted:Qty: 1 on 05/02/2022 by Donn Bahena MD at [facility] Left: Hip [employer] 12/27/2031 [id number] / / [id number] Synthes 1.7mm 750mm Crimp Cerclage Cable Orthopedic Stainless Steel 298.801.01s - [id number] Implanted:Qty: 1 on 05/02/2022 by Donn Bahena MD at [facility] Left: Hip Synthes I 06/28/2024 298.801.01S / / [id number] [employer] Articul/Dann 36mm Cementless Hip +1.5mm 12/14 Taper Head Femoral Latex Free [id number] - [id number] Implanted:Qty: 1 on 05/02/2022 by Donn Bahena MD at [facility] Left: Hip [employer] 03/28/2027 [id number] / / [id number] [employer] Actis Collared Hip 05/11 4 Standard Offset Stem Femoral [id number] - [id number] Implanted:Qty: 1 on 08/26/2024 by Donn Bahena MD at [facility] Right: Hip [employer] 02/25/2034 [id number] / / [id number] Synthes 1.7mm 750mm Crimp Cerclage Cable Orthopedic Stainless Steel 298.801.01s - [id number] Implanted:Qty: 1 on 08/26/2024 by Donn Bahena MD at [facility] Right: Hip Synthes 02/25/2029 298.801.01S / / [id number] [employer] Articul/Dann 36mm Cementless Hip +1.5mm 12/14 Taper Head Femoral Latex Free [id number] - [id number] Implanted:Qty: 1 on 08/26/2024 by Donn Bahena MD at [facility] Right: Hip [employer] 05/28/2029 [id number] / / [id number] [employer] [place] 6.5mm 35mm Acetabular Cancellous Screw Bone Sterile 1217-35-500 - [id number] Implanted:Qty: 1 on 08/26/2024 by Donn Bahena MD at [facility] Right: Hip [employer] 04/27/2034 1217-35-500 / / [id number] [employer] Shell Acetabular Hip Porous 3 Hole Coated Emphasys 50mm Titanium [id number] - [id number] Implanted:Qty: 1 on 08/26/2024 by Donn Bahena MD at [facility] Right: Hip [employer] 06/28/2034 [id number] / / [id number] [employer] Liner Acetabular Hip Standard Emphasys Aox 73l40su Polyethylene [id number] - [id number] Implanted:Qty: 1 on 08/26/2024 by Donn Bahena MD at [facility] Right: Hip [employer] 06/28/2029 [id number] / / [id number] Procedures Procedure Name Priority Date/Time Associated Diagnosis [...] ORDERABLES Final Result [facility] ([facility]) [address] [facility] Department of Laboratories [place], [place] [id number] * (ABNORMAL) CBC without differential (09/02/2024 5:06 [...] ORDERABLES Final Result [facility] ([place]) [address] [facility] [place] [address] * Basic metabolic panel (09/02/2024 5:06 AM [...] 2022. Calcium 8.8 8.5 - 10.3 mg/dL [facility] ([place]) Blood 09/02/2024 5:06 AM CDT 09/02/2024 5:16 AM CDT Jeanine ALBERT LAB BLOOD ORDERABLES Final Result [facility] ([place]) [address] [facility] Department [place] [address] * eGFR (09/01/2024 4:45 AM CDT) eGFR [...] ALBERT LAB BLOOD ORDERABLES Final Result HEATH ME) 1 [facility] [place] [address] * (ABNORMAL) CBC without differential (09/01/2024 4:45 AM CDT) WBC 5.38 3.80 - 9.90 K/cumm Hgb 8.8(L) 11.9 - 15.5 g/dL [facility] ([place]) Hct 27.5(L) 35.6 - 45.5 % [facility] ([place]) Plt 245 150 - 400 K/cumm [facility] ([place]) MPV 10.1 9.1 - 12.3 fL [facility] ([place]) RBC 2.68(L) 3.90 - 5.20 M/cumm [facility] MCV 102.6(H) 81.3 - 96.4 fL [facility] MCH 32.8 27.1 - 33.3 pg [facility] MCHC 32.0(L) 32.3 - 35.7 g/dL [facility] RDW CV 15.3(H) 11.1 - 14.9 % [facility] RDW SD 57.7(H) 35.7 - 48.1 fL [facility] NRBC abs 0.00 0.00 - 0.01 K/cumm [facility] ([facility]) Blood 09/01/2024 4:45 AM CDT 09/01/2024 5:41 AM CDT us Jeanine ALBERT LAB BLOOD ORDERABLES Final Result [facility] ([place]) [address] [facility] Department [place] [address] * Basic metabolic panel (09/01/2024 4:45 AM CDT) Sodium 139 135 - 145 mmol/L Potassium, pl 4.3 3.3 - 4.9 mmol/L [facility] Chloride 103 97 - 110 mmol/L [facility]) CO2 28 22 - 32 mmol/L [facility]) Anion gap 8 2 - 15 mmol/L [facility] BUN 12 6 - 25 mg/dL [facility] Creatinine 0.78 0.60 - 1.10 mg/dL [facility] ([place]) Glucose 90 70 - 199 mg/dL [facility] Comment: Interpretive Data Fasting glucose [...] - 10.3 mg/dL [facility] ([place]) Blood 09/01/2024 4:45 AM CDT 09/01/2024 5:41 AM CDT Jeanine ALBERT LAB BLOOD ORDERABLES Final Result [facility] ([place]) 1 [facility] [place] [address] * eGFR (08/31/2024 5:28 AM CDT) eGFR [...] ORDERABLES Final Result [facility] ([place]) [address] [facility] Department [place] [address] * (ABNORMAL) CBC without differential (08/31/2024 5:28 AM CDT) [facility] WBC 5.06 3.80 - 9.90 K/cumm Hgb [...] ORDERABLES Final Result [facility] ([place]) [address] [facility] Department [place] [address] * Basic metabolic panel (08/31/2024 5:28 AM CDT) [facility] Sodium 138 135 - 145 mmol/L Potassium, pl 4.5 3.3 - 4.9 mmol/L [facility] ([place]) Chloride 102 97 - 110 mmol/L [facility] ([place]) CO2 27 22 - 32 mmol/L [facility] ([place]) Anion gap 9 2 - 15 mmol/L [facility] ([place]) BUN 12 6 - 25 mg/dL [facility] ([place]) Creatinine 0.79 0.60 - 1.10 mg/dL [facility] ([place]) Glucose 84 70 - 199 mg/dL [facility] ([place]) Comment: Interpretive Data Fasting glucose [...] 2022. Calcium 9.0 8.5 - 10.3 mg/dL [facility] ([place]) Blood 08/31/2024 5:28 AM CDT 08/31/2024 5:49 AM CDT Jeanine ALBERT LAB BLOOD ORDERABLES Final Result [facility] ([place]) 1 [facility] Department [place] [address] * eGFR (08/30/2024 4:42 AM CDT) eGFR [...] ORDERABLES Final Result [facility] ([place]) [address] [facility] Department [place] [address] * (ABNORMAL) CBC without differential (08/30/2024 4:42 [...] ORDERABLES Final Result [facility] ([place]) 1 [facility] [place] [address] * Basic metabolic panel (08/30/2024 4:42 AM CDT) Sodium 136 135 - 145 mmol/L Potassium, pl 3.9 3.3 - 4.9 mmol/L [facility] ([place]) Chloride 103 97 - 110 mmol/L [facility] ([place]) CO2 26 22 - 32 mmol/L [facility] ([place]) Anion gap 7 2 - 15 mmol/L [facility] ([place]) BUN 10 6 - 25 mg/dL [facility] ([place]) Creatinine 0.69 0.60 - 1.10 [...] 2022. Calcium 8.7 8.5 - 10.3 mg/dL [facility] ([place]) Blood 08/30/2024 4:42 AM CDT 08/30/2024 4:54 AM CDT Jeanine ALBERT LAB BLOOD ORDERABLES Final Result HEATH EM) 1 [facility] [place] [address] * eGFR (08/29/2024 4:58 AM CDT) eGFR [...] ORDERABLES Final Result [facility] ([place]) [address] [facility] [place] [address] * (ABNORMAL) CBC without differential (08/29/2024 4:58 [...] RDW CV 15.8(H) 11.1 - 14.9 % [facility] ([place]) RDW SD 59.3(H) 35.7 - 48.1 fL [facility] ([place]) NRBC abs 0.00 0.00 - 0.01 K/cumm [facility] ([place]) Blood 08/29/2024 4:58 AM CDT 08/29/2024 5:20 AM CDT us Jeanine ALBERT LAB BLOOD ORDERABLES Final Result [facility] ([place]) [facility] Department [place] [address] * Basic metabolic panel (08/29/2024 4:58 AM CDT) Sodium 139 135 - 145 mmol/L Potassium, pl 4.0 3.3 - 4.9 mmol/L [facility] Chloride 106 97 - 110 mmol/L [facility] ([place]) CO2 26 22 - 32 mmol/L [facility] ([place]) Anion gap 8 2 - 15 mmol/L [facility] ([place]) BUN 11 6 - 25 mg/dL [facility] Creatinine 0.88 0.60 - 1.10 [...] BLOOD ORDERABLES Final Result Performing Organization Address [facility] Co de Phone Number HEATH MaganaILIAMNA) 1 [facility] [employer] [address] * eGFR (08/28/2024 4:46 AM CDT) eGFR [...] BLOOD ORDERABLES Final Result Performing Organization Address City/[facility]/ZIP Co de Phone Number HEATH MaganaILIAMNA) 1 [facility] [place] [address] * (ABNORMAL) CBC without differential (08/28/2024 4:46 [...] ORDERABLES Final Result [facility] ([place]) 1 [facility] Department of Laboratories [place], [place] [id number] * Basic metabolic panel (08/28/2024 4:46 AM [...] ([place]) Glucose 99 70 - 199 mg/dL [facility] ([place]) [...] 8.6 8.5 - 10.3 mg/dL [facility] ([place]) Blood 08/28/2024 4:46 AM CDT 08/28/2024 4:55 AM CDT Jeanine ALBERT LAB BLOOD ORDERABLES Final Result [facility] ([place]) 1 [facility] Department [place] [address] * eGFR (08/27/2024 7:33 AM CDT) eGFR [...] ORDERABLES Final Result [facility] ([place]) [address] [facility] Department [place] [address] * (ABNORMAL) CBC without differential (08/27/2024 7:33 AM CDT) Pathologist [facility] WBC 9.3 3.8 - 9.9 K/cumm Hgb [...] ORDERABLES Final Result [facility] ([place]) 1 [facility] [place] [address] * Basic metabolic panel (08/27/2024 7:33 AM CDT) Sodium 141 135 - 145 mmol/L Potassium, pl 4.1 3.3 - 4.9 mmol/L [facility] ([place]) Chloride 107 97 - 110 mmol/L [facility] ([place]) CO2 22 22 - 32 mmol/L [facility] ([place]) Anion gap 11 2 - 15 mmol/L [facility] ([place]) BUN 9 6 - 25 mg/dL [facility] ([place]) Creatinine 0.68 0.60 - 1.10 mg/dL [facility] ([place]) Glucose 113 70 - 199 mg/dL [facility] ([place]) Comment: Interpretive Data Fasting glucose >/= 126 [...] 2022. Calcium 8.5 8.5 - 10.3 mg/dL [facility] ([place]) Blood 08/27/2024 7:33 AM CDT 08/27/2024 7:47 AM CDT Jeanine ALBERT LAB BLOOD ORDERABLES Final Result [facility] ([place]) 1 [facility] Department [place] [address] * Surgical pathology (08/26/2024 2:26 PM CDT) Tissue specimen (specimen) (Bone Fragment(s),) 08/26/2024 10:29 AM CDT Narrative PATHOLOGY [facility] ([place]) - 08/28/2024 11:50 AM CDT EPIC results best viewed via link to PDF [facility] Department of Pathology [address] [place] [id number] Note to Patients: This report may contain [...] Final Report Patient Name: MIRLANDE GUPTA Address: [address] [place] [address] Gender: F : 1960 (Age: 64) Service: Surgery Location: [facility] Hospital #: [id number] Patient Type: [facility] Taken: 08/26/2024 Received: 08/26/2024 Accessioned: 08/26/2024 Reported: [...] is bisected revealing no subchondral gross lesions. Furniture Duster sections are submitted in one cassette after decalcification. Sharri Smith R.N., P.A./Be Leigh M.D. REPORT IMAGES AND SCANNED DOCUMENTS, IF INCLUDED, ONLY VIEWABLE IN PDF VERSION OF REPORT The performance characteristics of some immunohistochemical stains, fluorescence in-situ hybridization tests and immunophenotyping by flow cytometry cited in this report (if any) were determined by the Surgical Pathology Department at [facility] as part of an ongoing quality eng program and in compliance with federally mandated [...] characteristics determined by the Surgical Pathology Department [facility]. It has not been cleared or approved by the U. S. Food and Drug Administration. Note for decalcified specimens: This assay has not been validated on decalcified tissues. Results should be interpreted with caution given the possibility of false negativity on decalcified specimens us Donn Bahena MD LAB PATHOLOGY ORDERABLES Final Result [facility]Y [facility] ([place]) [address] [place] [address] [id number] * XR Pelvis Ortho View (08/26/2024 12:16 [...] Bam Andrea M.D. KR: TAB Report ID: [id number] Reading Location: [id number] Procedure Note Bam Andrea MD - 08/26/2024 [...] Bam Andrea M.D. KR: TAB Report ID: [id number] Reading Location: [id number] us Jeanine ALBERT IMG XR PROCEDURES Fin al Result * FL Fluoroscopy < 1 Hour (08/26/2024 11:24 AM CDT) Narrative RAD_P[facility] - 08/26/2024 11:24 AM CDT The images from this study are not interpreted by Radiology. Please refer to the physician's procedure / OR operative note. us Donn Bahena MD IMG FLUOROSCOPY PROCEDUR ES [...] Analisa Camacho D.O. PS: PS Report ID: [id number] Reading Location: [id number] Procedure Note Analisa Camacho DO - 08/26/2024 [...] Analisa Camacho D.O. PS: PS Report ID: [id number] Reading Location: [id number] Donn Bahena MD IMG XR PROCEDURES Final Result * Spinal Block (08/26/2024 9:49 AM CDT) Narrative Daniel Naranjo CRNA - 08/26/2024 9:49 AM CDT Daniel Naranjo CRNA 08/26/2024 9:49 AM Spinal Block Patient location: OR Reason for block: primary anesthetic Staff: Placed by: AIRPORT SECURITY SCREENER:Daniel Naranjo CRNA Procedure prep: Preprocedure checklist: patient [...] MD LAB BLOOD ORDERABLES F inal Result [facility] ([place]) 1 [facility] Department [place] [address] * aPTT (08/26/2024 8:11 AM CDT) aPTT 33 28 - 38 sec [facility] ([place]) Comment: Interpretive Data Heparin therapeutic range: 66.0 - 100.0 seconds. Range based on correlation with therapeutic heparin activity range of 0.3 - 0.7 Units/mL. Current interpretive data was last revised on 2023. Blood 08/26/2024 8:11 AM CDT 08/26/2024 8:25 AM CDT Donn Bahena MD LAB BLOOD ORDERABLES Fin al Result Performing Organization Address [facility] de Phone Number [facility] ([place]) 1 [facility] [employer] [address] * Protime-INR (08/26/2024 8:11 AM CDT) PT 11.2 9.7 - 13.0 sec HEATH [facility] ([place]) INR 1.04 0.90 - 1.20 HEATH [facility] ([place]) Comment: Interpretive data Oral anticoagulant therapeutic ranges: Venous thromboembolism prophylaxis or treatment: 2.0-3.0 CARDIOLOGY Standard range: 2.0-3.0 High-intensity range: 2.5-3.5 Refer to indication-specific guidelines for appropriate target ranges for prosthetic heart valve replacement. Current interpretive data was last revised on 2019. Blood 08/26/2024 8:11 AM CDT 08/26/2024 8:25 AM CDT Donn Bahena MD LAB BLOOD ORDERABLES Fin al Result Performing Organization Address [facility] de Phone Number [facility] ([place]) 1 [facility] [employer] [place] [address] * (ABNORMAL) Urinalysis reflex to microscopic and culture Urine (08/19/2024 5:00 AM CDT) Color, ur Yellow Yellow Clarity, ur Turbid(A) Clear [facility] ([place]) Specific gravity, ur 1.017 1.003 - 1.030 HEATH [facility] ([place]) pH, urine 6.0 [facility] ([place]) Comment: Interpretive Data U rine pH is affected by diet, medications, systemic acid-base disturbances, and renal tubular function. pH may affect urinary stone formation. For example, urine pH below 6.0 may help reduce the tendency for calcium phosphate stones and pH greater than 6.0 may reduce the tendency for uric acid stone formation. Source: [facility] Current Interpretive Data was last [...] 7:14 AM CDT Donn Bahena MD LAB MICROBIOLOGY - GENER AL ORDERABLES Final Result [facility] ([place]) 1 [facility] Department [place] [address] * (ABNORMAL) Urinalysis, microscopic only (08/19/2024 5:00 AM CDT) WBC, ur 11-20(A) 0 - 5 /HPF RBC, ur 0-2 0 - 2 /HPF [facility] ([place]) Epithelial cells, squamous, ur >50(A) 0 - 5 /HPF [facility] ([place]) Bacteria, ur 4+(A) [facility] ([place]) Mucous, ur Present(A) [facility] ([place]) Culture Reflex Comment Reflex to urine culture will be performed. [facility] ([place]) Urine 08/19/2024 5:00 AM CDT 08/19/2024 7:14 AM CDT us Donn Bahena MD LAB URINE ORDERABLES Fin al Result Performing Organization Address City/[facility]/ZIP Co de Phone Number [facility] ([place]) 1 [facility] [place] [address] * (ABNORMAL) Urine culture Urine (08/19/2024 5:00 AM CDT) Report Final Report: Greater than or equal to 100,000 colonies/mL of Klebsiella pneumoniae (.) Comment:Testing performed by : [facility], [address] [facility] [place]., [address] Organism KLEBSIELLA PNEUMONIAE [facility] ([place]) Urine 08/19/2024 5:00 AM CDT 08/19/2024 10:02 AM CDT Narrative [facility] ([place]) - 08/21/2024 2:56 PM CDT Urine culture reflexed based upon urinalysis results. Testing performed by [facility] ([phone]) Organism Antibiotic Method Susceptibility Klebsiella pneumoniae Ampicillin [...] Susceptible Donn Bahena MD LAB MICROBIOLOGY - GENER AL ORDERABLES Final Result [facility] ([place]) 1 [facility] [place] [address] * XR Chest Pa Lateral 2 Views [...] Bam Andrea M.D. KR: TAB Report ID: [id number] Reading Location: [place] [address] Procedure Note Bam Andrea MD - 08/21/2024 [...] Bam Andrea M.D. KR: TAB Report ID: [id number] Reading Location: [place] [address] Donn Bahena MD IM XR PROCEDURES Final Result * eGFR (08/17/2024 [...] BLOOD ORDERABLES Fin al Result [facility] ([place]) 1 [facility] Department [place] [address] * Differential, auto (08/17/2024 9:42 AM CDT) Neutrophil abs 2.5 1.5 - 6.5 K/cumm Imm gran abs 0.0 0.0 - 0.1 K/cumm [facility] ([place]) Lymphocyte abs 1.1 0.8 - 3.3 K/cumm [facility] ([place]) Monocyte abs 0.3 0.2 - 0.8 K/cumm [...] revised on 2017. Monocyte pct 7.6 % [facility] ([place]) Comment: Interpretive Data Percent cell count reference [...] revised on 2017. Basophil pct 1.1 % [facility] ([place]) Comment: Interpretive Data Percent cell count reference ranges are not reported, since discordance with absolute values may lead to misinterpretation of CBC data. Current Interpretive Data was last revised on 2017. Blood 08/17/2024 9:42 AM CDT 08/17/2024 9:57 AM CDT us Donn Bahena MD LAB BLOOD ORDERABLES Fin al Result [facility] ([place]) 1 [facility] Department [place] [address] * (ABNORMAL) CBC with auto differential (08/17/2024 9:42 AM CDT) WBC 4.4 3.8 - 9.9 K/cumm Hgb 12.2 11.9 - 15.5 g/dL [facility] ([place]) Hct 37.6 35.6 - 45.5 % [facility] ([place]) Plt 237 150 - 400 K/cumm [facility] ([place]) MPV 10.1 9.1 - 12.3 fL [facility] ([place]) RBC 3.74(L) 3.90 - 5.20 M/cumm [facility] ([place]) MCV 100.5(H) 81.3 - 96.4 fL [facility] ([place]) MCH 32.6 27.1 - 33.3 pg [facility] ([place]) MCHC 32.4 32.3 - 35.7 g/dL [facility] ([place]) RDW CV 16.8(H) 11.1 - 14.9 % [facility] ([place]) RDW SD 62.4(H) 35.7 - 48.1 fL [facility] ([place]) NRBC abs 0.00 0.00 - 0.01 K/cumm [facility] ([place]) Blood 08/17/2024 9:42 AM CDT 08/17/2024 9:57 AM CDT Donn Bahena MD LAB BLOOD ORDERABLES Fin al Result Performing Organization Address [facility] de Phone Number [facility] E[facility] ([place]) 1 [facility] [place] [address] * aPTT (08/17/2024 9:42 AM CDT) aPTT [...] ORDERABLES Fin al Result Performing Organization Address City/[facility] Co de Phone Number [facility] E[facility]EN[facility] ([place]) 1 [facility] [place] [address] * Protime-INR (08/17/2024 9:42 AM CDT) PT [...] ORDERABLES Fin al Result Performing Organization Address [facility] de Phone Number [facility] ([place]) 1 [facility] [place] [address] * Hemoglobin A1c (08/17/2024 9:42 AM CDT) Hgb A1C 4.9 4.0 - 5.6 % Estimated Average Glucose 94 mg/dL [facility] ([place]) Comment: The ADA recommends reporting an estimated Average Glucose (eAG) with all Hemoglobin A1c results using the equation derived from a study of 507 normal and diabetic adults. Minority populations were underrepresented and children were not included. (Diabetes Care 31:4622-6838, 2008). The eAG is not equivalent to a fasting glucose. Blood 08/17/2024 9:42 AM CDT 08/17/2024 9:57 AM CDT Donn Bahena MD LAB BLOOD ORDERABLES Fin al Result Performing Organization Address [facility] Co de Phone Number [facility] ([place]) 1 [facility] [place] [address] * Comprehensive metabolic panel (08/17/2024 9:42 AM CDT) Sodium 142 135 - 145 mmol/L Potassium, pl 4.7 3.3 - 4.9 mmol/L [facility] ([place]) Chloride 106 97 - 110 mmol/L [facility] ([place]) CO2 25 22 - 32 [...] LAB BLOOD ORDERABLES Fin al Result [facility]ATH EISENBERG ([place]) 1 [facility] Department [place] [address] from Last 3 Months Insurance [employer] [place] [employer] [facility] Advance Directives For more information, please contact: [phone] * Full Code (Latest Code Status on File) Date Activated Date Inactivated Comments 08/26/2024 2:16 PM 09/02/2024 11:51 PM * Full Code Date Activated Date Inactivated Comments 05/02/2022 1:50 PM 05/03/2022 4:42 PM Care Teams Tinsmith Apprentice Relationship Specialty Start Date End Date Be Higginbotham MD PCP - General 07/14/21 Donn Bahena MD [address] [place] [address] [place] [address] Surgeon Orthopedic Surgery 05/03/22 Matthew Crouch OT Occupational Therapist Occupational Therapy 08/21/24 Jeanine Wilson PA [address] [facility] [address] [place] [address] Physician Broadband Technician Orthopedic Surgery 09/17/24
--- OUTSIDE RECORDS SUMMARY | 2024-10-28 12:52 | XMS_ITS | Clinical Summary ---
Author Organization [facility] Virtual Care Address [address] [place] [phone] Phone Care Team Providers Care Grain Unloader Machine Name Role Phone Be Higginbotham MD Primary Care Provider + [phone] Donn Bahena MD Unavailable [phone] Matthew Crouch OT Unavailable Unavailable Jeanine Wilson Unavailable [phone] Allergies No known active allergies Medications cyanocobalamin [...] 80 mg by mouth daily. rx # [id number] Indications: depression Active pregabalin (LYRICA) 75 mg capsuleIndicatio ns:Postoperative Acute Pain Take 75 mg by mouth 2 (two) times a day. rx # [id number] Indications: acute pain following an operation Active buPROPion XL (Wellbutrin XL) 300 mg 24 hr tabletIndication s:Anxiety with Depression Take 300 mg by mouth every morning. rx # [id number] Indications: anxiousness associated with depression Active naproxen (NAPROSYN) 500 mg tabletIndication s:Pain Take 500 mg by mouth 2 (two) times a day as needed for pain. rx # [id number] Indications: pain Active celecoxib (CeleBREX) 200 mg [...] Care Team Description 10/28/2024 Home Care Visit [address] [address] [address] [place] [address] Quentin Arellano, PT CASE COMMUNICATION 10/25/2024 Telephone [facility] Orthopedics and Sports Medicine [address] [place] [address] [address] [place] [address] Jeanine Wilson PA 10/02/2024 Home Care Visit [address] [place] [address] Elizabeth Baldwin RN SN TRIAGE ENCOUNTER 09/30/2024 Home Care Visit [address] [place] [address] Isabella Paulino, RN NURSE MED RECON FOR THERAPY 09/28/2024 Home Care Visit [address] [place] [address] Isabella Paulino, RN NURSE MED RECON FOR THERAPY 09/27/2024 Home Care Visit [address] [place] [address] Danielle Mireles, RN NURSE MED RECON FOR THERAPY 09/26/2024 Home Care Visit [address] [place] [address] Danielle Mireles, RN NURSE MED RECON FOR THERAPY 09/25/2024 1:00 PM CDT Home Care Visit [address] [place] [address] Quentin Arellano, PT PT OASIS START OF CARE 09/25/2024 Plan of Care Documentation [address] [place] [address] 09/25/2024 Home Care Visit [address] [address] [address] [place] [address] Quentin Arellano, PT TELEPHONE ENCOUNTER 09/23/2024 Home Care Visit [address] [address] [place] [address] Quentin Arellano, PT TELEPHONE ENCOUNTER 09/20/2024 Home Care Visit [address] [address] [address] [place] [address] Quentin Arellano, PT TELEPHONE ENCOUNTER 09/20/2024 Telephone [facility] Medical [facility] Orthopedics and Sports Medicine [address] [place] [address] [address] [place] [phone] Jeanine Wilson PA 09/20/2024 Home Care Visit [address] [place] [address] Quentin Arellano, PT CASE COMMUNICATION 09/19/2024 Home Care Visit [address] [place] [address] Quentin Arellano, PT TELEPHONE ENCOUNTER 09/17/2024 1:30 PM CDT Telemedicine [facility] Medical [facility] Orthopedics and Sports Medicine [address] [place] [address] Jeanine Wilson PA Aftercare following right hip joint replacement surgery (Primary Dx) 09/17/[address] [place] [address] Edelmira Crawford RN 09/17/2024 Travel 09/17/2024 Telephone [facility] Orthopedics and Sports Medicine [address] [place] [address] [address] [place] [address] Jeanine Wilson PA 09/02/2024 10:17 AM CDT - 09/02/2024 11:59 PM CDT Hospital Encounter [facility] Emergency, Room R Discharge Disposition: Discharge to home or self care 08/26/2024 9:55 AM CDT - 08/26/2024 12:20 PM CDT Surgery [facility] Operating Room 1 [place] [address] Donn Bahena MD Right Total Hip Arthroplasty 08/26/2024 9:10 AM CDT Anesthesia Event [facility] Operating Room 1 [place] [address] Jr Hull MD 08/26/2024 7:52 AM CDT - 09/02/2024 7:51 PM CDT Hospital Encounter [facility] 1 [place] [address] Donn Bahena MD Primary osteoarthritis of right hip; Neuropathy Discharge Disposition: Discharge to SNF 08/22/2024 Telephone [facility] Orthopedics and Sports Medicine [address] [place] [address] [address] [place] [address] Donn Bahena MD Surgery Clearance 08/19/2024 7:06 AM CDT - 08/19/2024 11:59 PM CDT Hospital Encounter [address] [address] Pre-operative exam Discharge Disposition: Discharge to home or self care 08/17/2024 9:45 AM CDT Lab [address] [address] Primary osteoarthritis of right hip; Pre-operative exam 08/17/2024 9:25 AM CDT - 08/17/2024 11:59 PM CDT Hospital Encounter [facility] 1 [place] [address] Pre-operative exam Discharge Disposition: Discharge to home or self care 08/14/2024 Telephone [facility] Orthopedics and Sports Medicine [address] [facility] [address] [place] [address] Donn Bahena MD from Last [...] materials from doctor or pharmacy Never 09/25/2024 [facility] Utilities Answer Date Recorded In the past 12 months has [employer], oil, or water [employer] threatened to shut off services in your [...] 08/27/2024 How often do you attend chur or advent services? Patient declined 08/27/2024 Do you belong to any clubs o r organizations such as evangelical groups, unions, fraternal or athletic groups, or [...] any time in the past 12 m [facility], were you homeless or living in a long term (including now)? No 08/27/2024 Personal Safety Answer Date Recorded Have you ever been in or are you currently in a harmful physical or emotional relationship or is someone making you feel afraid or unsafe? Denies 08/26/2024 Comments No Sex and Gender Information Value Date Recorded Sex Assigned at Not on file Legal Sex Female 5:37 PM CHERRY GROWER Gender Identity Not on file Sexual Orientation [...] Vaccine (1 of 2) 2011 Covid-19 Vaccine (3 - 2023-2 5 season) 2024 05/02/2021, 08/04/2020 Depression Screening 03/22/2024 03/22/2023, 03/22/2023 Influenza Vaccine (Season Ended) 2025 02/26/2022, 04/01/2021, 03/22/2020 Pneumococcal vaccine <65 Aged Out No longer eligible based on patient's age to complete this topic Medical Devices Implanted Type Area Boiler Fitter Device Identifier Shelf Expiration Date Model / Serial / Lot [employer] Wickett 6.5mm 35mm Acetabular Cancellous Screw Bone Sterile 1217-35-500 - [id number] Implanted:Qty: 1 on 05/02/2022 by Donn Bahena MD at [facility] Left: Hip [employer] 01/27/2032 1217-35-500 / / [id number] [employer] Wickett 52mm Sector Hip Shell Acetabular Gription Sterile Latex Free [id number] - [id number] Implanted:Qty: 1 on 05/02/2022 by Donn Bahena MD at [facility] Left: Hip [employer] 10/27/2031 [id number] / / [id number] [employer] Wickett 52mm 36mm Hip Neutral Liner Acetabular Altrx Sterile Latex Free [id number] - [id number] Implanted:Qty: 1 on 05/02/2022 by Donn Bahena MD at [facility] Left: Hip [employer] 08/26/2026 [id number] / / [id number] [employer] Actis Collared Hip 05/11 4 Standard Offset Stem Femoral [id number] - [id number] Implanted:Qty: 1 on 05/02/2022 by Donn Bahena MD at [facility] Left: Hip [employer] 12/27/2031 [id number] / / [id number] Synthes 1.7mm 750mm Crimp Cerclage Cable Orthopedic Stainless Steel 298.801.01s - [id number] Implanted:Qty: 1 on 05/02/2022 by Donn Bahena MD at [facility] Left: Hip Synthes I 06/28/2024 298.801.01S / / [id number] [employer] Articul/Dann 36mm Cementless Hip +1.5mm /14 Taper Head Femoral Latex Free [id number] - [id number] Implanted:Qty: 1 on 05/02/2022 by Donn Bahena MD at [facility] Left: Hip [employer] 03/28/2027 [id number] / / [id number] [employer] Actis Collared Hip 05/11 4 Standard Offset Stem Femoral [id number] - [id number] Implanted:Qty: 1 on 08/26/2024 by Donn Bahena MD at [facility] Right: Hip [employer] 02/25/2034 [id number] / / [id number] Synthes 1.7mm 750mm Crimp Cerclage Cable Orthopedic Stainless Steel 298.801.01s - [id number] Implanted:Qty: 1 on 08/26/2024 by Donn Bahena MD at [facility] Right: Hip Synthes 02/25/2029 298.801.01S / / [id number] [employer] Articul/Dann 36mm Cementless Hip +1.5mm 12/14 Taper Head Femoral Latex Free [id number] - [id number] Implanted:Qty: 1 on 08/26/2024 by Donn Bahena MD at [facility] Right: Hip [employer] 05/28/2029 [id number] / / [id number] [employer] Wickett 6.5mm 35mm Acetabular Cancellous Screw Bone Sterile 1217-35-500 - [id number] Implanted:Qty: 1 on 08/26/2024 by Donn Bahena MD at [facility] Right: Hip [employer] 04/27/2034 1217-35-500 / / [id number] [employer] Shell Acetabular Hip Porous 3 Hole Coated Emphasys 50mm Titanium [id number] - [id number] Implanted:Qty: 1 on 08/26/2024 by Donn Bahena MD at [facility] Right: Hip [employer] 06/28/2034 [id number] / / [id number] [employer] Liner Acetabular Hip Standard Emphasys Aox [id number] Polyethylene [id number] - [id number] Implanted:Qty: 1 on 08/26/2024 by Donn Bahena MD at [facility] Right: Hip [employer] 06/28/2029 [id number] / / [id number] Procedures Procedure Name Priority Date/Time Associated Diagnosis [...] LAB BLOOD ORDERABLES Final Result [facility] [place]) [address] [facility] [place] [address] * (ABNORMAL) CBC without differential [...] ORDERABLES Final Result [facility] ([place]) [address] [facility] [place] [address] * Basic metabolic panel (09/02/2024 5:06 AM [...] ([place]) Creatinine 0.81 0.60 - 1.10 mg/dL [facility] ([place]) Glucose 87 70 - 199 mg/dL [facility] ([place]) Comment: Interpretive Data Fasting glucose >/= 126 [...] 2022. Calcium 8.8 8.5 - 10.3 mg/dL [facility] ([place]) Blood 09/02/2024 5:06 AM CDT 09/02/2024 5:16 AM CDT Jeanine ALBERT LAB BLOOD ORDERABLES Final Result [facility] ([place]) [address] [facility] Department of Laboratories [place], [place] [id number] * eGFR (09/01/2024 4:45 AM CDT) eGFR [...] Jeanine ALBERT LAB BLOOD ORDERABLES Final Result [facility] ([place]) [address] [facility] [place] [address] * (ABNORMAL) CBC without differential (09/01/2024 4:45 [...] ORDERABLES Final Result [facility] ([place]) [address] [facility] [place] [address] * Basic metabolic panel (09/01/2024 4:45 AM CDT) Pathologist [facility] Sodium 139 135 - 145 mmol/L Potassium, pl 4.3 3.3 - 4.9 mmol/L [facility] ([place]) Chloride 103 97 - 110 mmol/L [facility] [place]) CO2 28 22 - 32 mmol/L [facility] [place]) Anion gap 8 2 - 15 mmol/L [facility] ([place]) BUN 12 6 - 25 mg/dL [facility] ([place]) Creatinine 0.78 0.60 - 1.10 mg/dL [facility] ([place]) Glucose 90 70 - 199 mg/dL [facility] ([place]) Comment: Interpretive Data Fasting glucose [...] 2022. Calcium 8.6 8.5 - 10.3 mg/dL [facility] ([place]) Blood 09/01/2024 4:45 AM CDT 09/01/2024 5:41 AM CDT us Jeanine ALBERT LAB BLOOD ORDERABLES Final Result [facility]) [address] [facility] [place] [address] * eGFR (08/31/2024 5:28 AM CDT) [facility] eGFR 84 >=60 mL/min/1. 73 m2 Comment: [...] Jeanine ALBERT LAB BLOOD ORDERABLES Final Result [facility] ([place]) [address] [facility] [place] [address] * (ABNORMAL) CBC without differential (08/31/2024 5:28 [...] RDW CV 15.5(H) 11.1 - 14.9 % [facility] ([place]) RDW SD 58.3(H) 35.7 - 48.1 fL [facility] ([place]) NRBC abs 0.00 0.00 - 0.01 K/cumm [facility] ([place]) Blood 08/31/2024 5:28 AM CDT 08/31/2024 5:48 AM CDT Jeanine ALBERT LAB BLOOD ORDERABLES Final Result [facility] ([place]) [address] [facility] [place] [address] * Basic metabolic panel (08/31/2024 5:28 AM CDT) Sodium 138 135 - 145 mmol/L Potassium, pl 4.5 3.3 - 4.9 mmol/L [facility] ([place]) Chloride 102 97 - 110 mmol/L [facility] ([place]) CO2 27 22 - 32 mmol/L [facility] ([place]) Anion gap 9 2 - 15 mmol/L [facility] ([place]) BUN 12 6 - 25 mg/dL [facility] ([place]) Creatinine 0.79 0.60 - 1.10 mg/dL [facility] ([place]) Glucose 84 70 - 199 mg/dL [facility] ([place]) Comment: Interpretive Data Fasting [...] 2022. Calcium 9.0 8.5 - 10.3 mg/dL [facility] ([place]) Blood 08/31/2024 5:28 AM CDT 08/31/2024 5:49 AM CDT Jeanine ALBERT LAB BLOOD ORDERABLES Final Result Performing Organization Address City/[facility] Co de Phone Number [facility] ([place]) [address] [facility] [place] [address] * eGFR (08/30/2024 4:42 AM CDT) eGFR [...] LAB BLOOD ORDERABLES Final Result [facility] ([place]) [address] [facility] [place] [address] * (ABNORMAL) CBC without differential (08/30/2024 4:42 AM CDT) WBC 5.43 3.80 - 9.90 K/cumm Hgb 9.0(L) 11.9 - 15.5 g/dL [facility] ([place]) Hct 28.0(L) 35.6 - 45.5 % [...] 4:42 AM CDT 08/30/2024 4:53 AM CDT us Jeanine ALBERT LAB BLOOD ORDERABLES Final Result [facility] ([place]) [address] [facility] [place] [address] * Basic metabolic panel (08/30/2024 4:42 AM [...] 8.7 8.5 - 10.3 mg/dL [facility] ([place]) Blood 08/30/2024 4:42 AM CDT 08/30/2024 4:54 AM CDT us Jeanine ALBERT LAB BLOOD ORDERABLES Final Result [facility] ([place]) [address] [facility] [place] [address] * eGFR (08/29/2024 4:58 AM CDT) eGFR [...] ORDERABLES Final Result [facility] ([place]) [address] [facility] [place] [address] * (ABNORMAL) CBC without differential (08/29/2024 4:58 AM CDT) Pathologist [facility] WBC 6.02 3.80 - 9.90 K/cumm [...] ORDERABLES Final Result [facility] ([place]) 1 [facility] [place] [address] * Basic metabolic panel (08/29/2024 4:58 AM CDT) Sodium 139 135 - 145 mmol/L Potassium, pl 4.0 3.3 - 4.9 mmol/L [facility] ([place]) Chloride 106 97 - 110 mmol/L [facility] ([place]) CO2 26 22 - 32 mmol/L [facility] ([place]) Anion gap 8 2 - 15 mmol/L [facility] ([place]) BUN 11 6 - 25 mg/dL [facility] ([place]) Creatinine 0.88 0.60 - 1.10 mg/dL [facility] ([place]) Glucose 102 70 - 199 mg/dL [facility] ([place]) Comment: Interpretive Data Fasting glucose [...] Calcium 8.5 8.5 - 10.3 mg/dL [facility] ([place]) Blood 08/29/2024 4:58 AM CDT 08/29/2024 5:20 AM CDT us Jeanine ALBERT LAB BLOOD ORDERABLES Final Result [facility] ([place] [address] [facility] [place] [address] * eGFR (08/28/2024 4:46 AM CDT) eGFR [...] Jeanine ALBERT LAB BLOOD ORDERABLES Final Result [facility] ([place]) [address] [facility] [place] [address] * (ABNORMAL) CBC without differential (08/28/2024 4:46 [...] ORDERABLES Final Result [facility] ([place]) [address] [facility] [place] [address] * Basic metabolic panel (08/28/2024 4:46 AM [...] 2022. Calcium 8.6 8.5 - 10.3 mg/dL [facility] ([place]) Blood 08/28/2024 4:46 AM CDT 08/28/2024 4:55 AM CDT Jeanine ALBERT LAB BLOOD ORDERABLES Final Result [facility] ([place]) [address] [facility] [place] [address] * eGFR (08/27/2024 7:33 AM CDT) [facility] eGFR >90 >=60 mL/min/1. 73 m2 Comment: [...] Jeanine ALBERT LAB BLOOD ORDERABLES Final Result [facility] ([place]) [address] [facility] [place] [address] * (ABNORMAL) CBC without differential (08/27/2024 7:33 AM CDT) [facility] WBC 9.3 3.8 - 9.9 K/cumm Hgb 10.1(L) 11.9 - 15.5 g/dL [facility] ([place]) Hct 32.0(L) 35.6 - 45.5 % [facility] ([place]) Plt 219 150 - 400 K/cumm [facility] ([place]) MPV 10.2 9.1 - 12.3 fL [facility] ([place]) RBC 3.13(L) 3.90 - 5.20 M/cumm [facility] ([place]) MCV 102.2(H) 81.3 - 96.4 fL [facility] ([place]) MCH 32.3 27.1 - 33.3 pg [facility] ([place]) MCHC 31.6(L) 32.3 - 35.7 g/dL [facility] ([place]) RDW CV 15.9(H) 11.1 - 14.9 % [facility] ([place]) RDW SD 60.5(H) 35.7 - 48.1 fL [facility] ([place]) NRBC abs 0.00 0.00 - 0.01 K/cumm [facility] ([place]) Blood 08/27/2024 7:33 AM CDT 08/27/2024 7:47 AM CDT us Jeanine ALBERT LAB BLOOD ORDERABLES Final Result [facility] ([place]) [address] [facility] [place] [address] * Basic metabolic panel (08/27/2024 7:33 AM CDT) Sodium 141 135 - 145 mmol/L Potassium, pl 4.1 3.3 - 4.9 mmol/L [facility] ([place]) Chloride 107 97 - 110 mmol/L [facility] ([place]) CO2 22 22 - 32 mmol/L [facility] ([place]) Anion gap 11 2 - 15 mmol/L [facility] ([place]) BUN 9 6 - 25 mg/dL [facility] ([place]) Creatinine 0.68 0.60 - 1.10 mg/dL [facility] ([place]) Glucose 113 70 - 199 mg/dL [facility] ([place]) Comment: Interpretive Data Fasting [...] 8.5 8.5 - 10.3 mg/dL [facility] ([place]) Blood 08/27/2024 7:33 AM CDT 08/27/2024 7:47 AM CDT Jeanine ALBERT LAB BLOOD ORDERABLES Final Result [facility] ([place]) [address] [place] [address] [place] [address] * Surgical pathology (08/26/2024 2:26 PM CDT) Tissue specimen (specimen) (Bone Fragment(s),) 08/26/2024 10:29 AM CDT Narrative PATHOLOGY [facility] ([place]) - 08/28/2024 11:50 AM CDT EPIC results best viewed via link to PDF [facility] Department of Pathology [address] [place] [id number] Note to Patients: This report may contain [...] Final Report Patient Name: MIRLANDE GUPTA Address: [address] [place] [address], [place] [address] Gender: F : 1960 (Age: 64) Service: Surgery Location: [facility] Hospital #: [id number] Patient Type: [facility] Taken: 08/26/2024 Received: 08/26/2024 Accessioned: 08/26/2024 [...] is bisected revealing no subchondral gross lesions. Irrigating Pump Operator sections are submitted in one cassette after decalcification. Sharri Smith R.N., P.A./Be Leigh M.D. REPORT IMAGES AND SCANNED DOCUMENTS, IF INCLUDED, ONLY VIEWABLE IN PDF VERSION OF REPORT The performance characteristics of some immunohistochemical stains, fluorescence in-situ hybridization tests and immunophenotyping by flow cytometry cited in this report (if any) were determined by the Surgical Pathology Department at [facility] as part of an ongoing food quality technician program and in compliance with federally mandated [...] characteristics determined by the Surgical Pathology Department [facility]. It has not been cleared or approved by the U. S. Food and Drug Administration. Note for decalcified specimens: This assay has not been validated on decalcified tissues. Results should be interpreted with caution given the possibility of false negativity on decalcified specimens Donn Bahena MD LAB PATHOLOGY ORDERABLES Final Result [facility] ([place]) [address] [place] [address] * XR Pelvis Ortho View (08/26/2024 12:16 [...] Bam Andrea M.D. KR: TAB Report ID: [id number] Reading Location: [place] [address] Procedure Note Bam Andrea MD - 08/26/2024 [...] Bam Andrea M.D. KR: TAB Report ID: [id number] Reading Location: [id number] us Jeanine ALBERT IMG XR PROCEDURES Fin [...] Analisa Camacho D.O. PS: PS Report ID: [id number] Reading Location: [id number] Procedure Note Analisa Camacho DO - 08/26/2024 [...] Analisa Camacho D.O. PS: PS Report ID: [id number] Reading Location: [place] [address] us Donn Bahena MD IMG XR PROCEDURES Final Result * Spinal Block (08/26/2024 9:49 AM CDT) Narrative Daniel Naranjo CRNA - 08/26/2024 9:49 AM CDT Daniel Naranjo CRNA 08/26/2024 9:49 AM Spinal Block Patient location: OR Reason for block: primary anesthetic Staff: Placed by: COLOR DRUM WORKER:Daniel Naranjo CRNA Procedure prep: Preprocedure checklist: patient [...] ORDERABLES F inal Result Performing Organization Address [facility] Co de Phone Number [facility] ([place]) [address] [facility] [place] [address] * aPTT (08/26/2024 8:11 AM CDT) Pathologist [facility] aPTT 33 28 - 38 sec [facility] ([place]) Comment: Interpretive Data Heparin therapeutic range: 66.0 [...] Medical Center/ZIP Co de Phone Number [facility] ([place]) [address] [facility] [place], [place] [id number] * Protime-INR (08/26/2024 8:11 AM CDT) PT 11.2 9.7 - 13.0 sec [facility] ([place]) INR 1.04 0.90 - 1.20 [facility] ([place]) Comment: [...] Fin al Result [facility] ([place]) [address] [facility] [place] [address] * (ABNORMAL) Urinalysis reflex to microscopic and [...] tendency for uric acid stone formation. Source: [facility] [place] Current Interpretive Data was last revised on [...] AL ORDERABLES Final Result Performing Organization Address [facility] Co de Phone Number [facility] ([place]) [address] [facility] [place] [address] * (ABNORMAL) Urinalysis, microscopic only (08/19/2024 5:00 [...] ORDERABLES Fin al Result Performing Organization Address [facility] Co de Phone Number [facility] ([place]) [address] [facility] [place] [address] * (ABNORMAL) Urine culture Urine (08/19/2024 5:00 AM CDT) Report Final Report: Greater than or equal to 100,000 colonies/mL of Klebsiella pneumoniae (.) Comment:Testing performed by : [facility], [address] [facility], [place]., [address] Organism KLEBSIELLA PNEUMONIAE [facility] ([place]) Urine 08/19/2024 5:00 AM CDT 08/19/2024 10:02 AM CDT Narrative [facility] ([place]) - 08/21/2024 2:56 PM CDT Urine culture reflexed based upon urinalysis results. Testing performed by [facility] ([phone]) Organism Antibiotic Method Susceptibility Klebsiella pneumoniae Ampicillin [...] GENER AL ORDERABLES Final Result [facility] [place]) 1 [facility] [place] [address] * XR Chest Pa Lateral 2 Views [...] Bam Andrea M.D. KR: TAB Report ID: [id number] Reading Location: [id number] Procedure Note Bam Andrea MD - 08/21/2024 [...] Bam Andrea M.D. KR: TAB Report ID: [id number] Reading Location: [place] [address] us Donn Bahena MD IMG XR PROCEDURES [...] Fin al Result [facility] ([place]) 1 [facility] [place] [address] * Differential, auto (08/17/2024 9:42 AM CDT) [...] Neutrophil pct 57.7 % [facility] ([place]) Comment: Interpretive Data Percent cell count reference [...] Performing Organization Address City/[facility] Co de Phone Number [facility] ([place]) 1 [facility] [place] [address] * (ABNORMAL) CBC with auto differential (08/17/2024 [...] Performing Organization Address City/[facility] Co de Phone Number [facility] ([place]) 1 [place] [address] * aPTT (08/17/2024 9:42 AM CDT) aPTT 34 28 - 38 sec [facility] ([place]) Comment: Interpretive Data Heparin therapeutic range: 66.0 - 100.0 seconds. Range based on correlation with therapeutic heparin activity range of 0.3 - 0.7 Units/mL. Current interpretive data was last revised on 2023. Blood 08/17/2024 9:42 AM CDT 08/17/2024 9:57 AM CDT Donn Bahena MD LAB BLOOD ORDERABLES Fin al Result Performing Organization Address [facility] de Phone Number [facility] ([place]) 1 [place] [address] * Protime-INR (08/17/2024 9:42 AM CDT) PT 11.7 9.7 - 13.0 sec [facility] ([place]) INR 1.08 0.90 - 1.20 [facility] ([place]) Comment: Interpretive data Oral anticoagulant therapeutic ranges: [...] Medical Center/ZIP Co de Phone Number [facility] ([place]) 1 [place] [address] * Hemoglobin A1c (08/17/2024 9:42 AM CDT) Hgb A1C 4.9 4.0 - 5.6 % Estimated Average Glucose 94 mg/dL [facility] ([place]) Comment: The ADA recommends reporting an estimated Average Glucose (eAG) with all Hemoglobin A1c results using the equation derived from a study of 507 normal and diabetic adults. Minority populations were underrepresented and children were not included. (Diabetes Care 31:5595-3806, 2008). The eAG is not equivalent to a fasting glucose. Blood 08/17/2024 9:42 AM CDT 08/17/2024 9:57 AM CDT us Donn Bahena MD LAB BLOOD ORDERABLES Fin al Result [facility] ([place] 1 [facility] [place] [address] * Comprehensive metabolic panel (08/17/2024 9:42 AM [...] ORDERABLES Fin al Result Performing Organization Address City/State/[facility] Co de Phone Number [facility] ([place]) 1 [facility] [place] [address] from Last 3 Months Insurance [employer] [place] [employer] [place] Advance Directives For more information, please contact: [phone] * Full Code (Latest Code Status on File) Date Activated Date Inactivated Comments 08/26/2024 2:16 PM 09/02/2024 11:51 PM * Full Code Date Activated Date Inactivated Comments 05/02/2022 1:50 PM 05/03/2022 4:42 PM Care Teams Grain Unloader Machine Relationship Specialty Start Date End Date Be Higginbotham MD PCP - General 07/14/21 Donn Bahena MD [address] [place] [address] [address] [place] [address] Surgeon Orthopedic Surgery 05/03/22 Matthew Crouch OT Occupational Therapist Occupational Therapy 08/21/24 Jeanine Wilson PA [address] [place] [address] [address] [place] [address] Physician Gill Box Fixer Orthopedic Surgery 09/17/24
--- OUTSIDE RECORDS SUMMARY | 2024-10-28 12:52 | XMS_ITS | Encounter Summary ---
Author Organization [facility] Healthcare Address [address] [place] [address] Care Team Providers Care Poultry Husbandry Worker Name Role Phone Be Higginbotham MD Primary Care Provider + [phone] Donn Bahena MD Unavailable [phone] Matthew Crouch OT Unavailable Unavailable Jeanine Wilson Unavailable [phone] Reason for Visit * Auth/Cert (Routine) Specialty Diagnoses / Procedures Referred By Contac t Referred To Contact Referral ID Status Reason Start Date Expiration Date Visits Re quested Visits Authorized [id number] 1 7 Encounter Details Date Type Department Care Team (Late st Contact Info) Description 10/28/2024 Home Care Visit [facility] [place] [address] [address] [place] [address] Quentin Arellano, PT CASE COMMUNICATION Social History Tobacco Use Types Packs/Day Years Used Date Smoking Tobacco: Never Smokeless Tobacco: Never OASIS D0700: Social Isolation Answer Da te [...] materials from doctor or pharmacy Never 09/25/2024 [facility] Utilities Answer Date Recorded In the past 12 months has e electric, gas, oil, or water company [...] often do you attend chur ch or scientology services? Patient declined 08/27/2024 Do you belong to any clubs o r organizations such as mandaeism groups, unions, fraternal or athletic groups, or [...] Yes 08/27/2024 Housing Stability Vital Sign Answer Rusyt e Recorded In the last 12 months, was t here a time when you were not able to pay the mortgage or rent on time? No 08/27/2024 In the past 12 months, how m any times have you moved where you were living? 0 08/27/2024 At any time in the past 12 m [facility], were you homeless or living in a prison (including now)? No 08/27/2024 Personal Safety Answer Date Recorded Have you ever been in or are you currently in a harmful physical or emotional relationship or is someone making you feel afraid or unsafe? 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 Gender Identity Not on file Sexual Orientation Not on file documented as of this encounter Plan of Treatment Not on file documented as of this encounter Visit Diagnoses Not on filedocumented in this encounter Care Teams Poultry Husbandry Worker Relationship Specialty Start Date End Date Be Higginbotham MD PCP - General 07/14/21 Donn Bahena MD 4 [facility] [place] [address] Surgeon Orthopedic Surgery 05/03/22 Matthew Crouch OT Occupational Therapist Occupational Therapy 08/21/24 Jeanine Wilson PA 4 [facility] [place] [id number] Physician Advice Nurse Orthopedic Surgery 09/17/24 documented as of this encounter
--- NOTE | 2024-10-28 13:47 | P.HP_ITS ---
H&P: HPI History of Present Illness Date/Time: 10/28/24 13:47 Chief Complaint: Leg weakness and heaviness Narrative: 64-year-old female with past medical history of anxiety, depression, hypothyroidism, obesity and right hip replacement 8 weeks ago at [facility] who presented to the ER with heaviness of the legs and weakness of her legs for 10 days. The patient reports that she had early left hip replacement done 2 and half years ago she had her right hip replaced on 08/26/2024. She denies any increased pain from what she would expect from postop hip repair. Will for the last 7-10 days she has become weaker. She is still only supposed be weight- bearing about 50% on the right leg. When she went to stand up and pivot to get up this morning she reports that her legs just warrant underneath err and she slid to the floor. She denies any associated back pain, loss of bowel or bladder control, or unexpected hip pain. She has intact sensation of her lower extremities. She can lift both legs equally from the bed a few inches. She has 4/5 plantar strength on the right and 5/5 on the left. She reports that she feels like her feet just slip from under her even when she is wearing her shoes. She states that her thinks that is that her knees give out. The patient has been having at home physical therapy. The ER note states that the patient went to acute rehab in [place] for 1 week but was discharged home because she did not like it therapy. She tells me at the time my evaluation that she never went to acute rehab. She denies any fevers or chills. 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 She has chronic constipation and only has a bowel movement about every 5-7 days at baseline. She denies any abdominal pain. The patient's reported to the ER staff that he feels helpless at home due to the patient's multiple falls. Review of Systems 2 Review of Systems: 12 systems were reviewed with pertinent positives and negatives per HPI. Except as documented in the HPI, all other systems were reviewed and are negative. Patient reports that she snores quite loudly but had a negative polysomnogram about 15 years ago. However she has gained a significant amount of weight since her polysomnogram. 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 They have no children. She has a 2-year-old blanchard retriever at home. She is a lifelong nonsmoker. She only rarely drinks alcohol in small amounts. 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 Code status: Full code Surrogate decision maker: Smoking status: Never smoker Alcohol intake: never Drinks per week: 2 Substance use: never Substance use type: does not use Do You Feel Safe in your Home?: Yes Lack of Transportation: No Lack of Food: Never True Current Housing: I Have Housing Concerned About Future Housing: No Difficulty Paying Gas/Electric Bills: No Difficulty Paying for Meds: No Currently Unemployed: No Education: High School Diploma/GED Difficulty w/ Childcare or Family Care: No Living arrangements: with family Occupation/Education: occupation Additional occupation/education comments: [employer] Gender identity (if verbalized by the patient): Female Spiritual care concerns: No Meds Home Medications and Allergies Home Medications ?Medication ?Instructions ?Recorded ?Confirmed ?Type alprazolam 0.5 mg tablet 0.5 mg PO DAILY 02/02/22 10/28/24 History diclofenac sodium 75 mg 75 mg PO BID 02/02/22 10/28/24 History tablet,delayed release fluoxetine 20 mg capsule 20 mg PO DAILY 02/02/22 10/28/24 History levothyroxine 200 mcg capsule 200 mcg PO DAILY 02/02/22 10/28/24 History spironolactone 100 mg tablet 100 mg PO DAILY 02/02/22 10/28/24 History aspirin 81 mg tablet,delayed 81 mg PO DAILY 10/28/24 10/28/24 History release (Adult Low Dose Aspirin) Allergies Allergy/AdvReac Type Severity Reaction Status Date / Time No Known Allergies Allergy Verified 10/28/24 14:16 Vital Signs Vital Signs - 24 hr 10/28/24 07:37 10/28/24 10:40 10/28/24 12:31 Temperature 97.6 F Pulse Rate 74 63 70 Respiratory Rate 20 18 20 Blood Pressure 122/68 130/75 141/91 H Pulse Oximetry 98 96 97 Oxygen Delivery Room Air 10/28/24 13:32 Temperature Pulse Rate 80 Respiratory Rate 18 Blood Pressure 151/94 H Pulse Oximetry 97 Oxygen Delivery Exam 2 Narrative: Weight 92.8 kg BMI 37.4 Const: Other: No acute distress, obese, appears stated age HENMT: Other: Mucous membranes are moist, no oral pharyngeal erythema, head is normocephalic atraumatic Eyes: Other: Pupils are equal and reactive, no scleral icterus, no conjunctival pallor Neck: Other: Large neck circumference, no JVD, trachea midline Resp: Other: Clear to auscultation bilaterally, no increased work of breathing Cardio: Other: Regular rate, regular rhythm, 2+ bilateral radial pedal pulses GI: Other: Obese, soft, nontender, hypoactive bowel sounds Skin: Other: Non jaundice, no pallor, abrasion to the dorsal right arm Neuro: Other: Alert oriented, speech is clear, no facial asymmetry, sensation is intact in all 4 extremities, no localizing neurologic deficits noted exam limited in part due to patient mobility Extrem: Other: No clubbing, cyanosis or edema, well-healed surgical scar to the right lateral upper thigh with no erythema or drainage Psych: Other: Appropriate mood and affect, pleasant and cooperative, judgment and insight intact H&P: Results Labs Labs: Laboratory Tests 10/28/24 09:42 10/28/24 09:42 10/28/24 09:42 WBC 5.2 RBC 4.01 L Hgb 12.1 Hct 38.4 MCV 95.8 MCH 30.2 MCHC 31.5 L RDW 13.6 Plt Count 268 MPV 9.5 Immature Gran % (Auto) 0.4 Neut % (Auto) 70.9 Lymph % (Auto) 17.9 L [place] % (Auto) 7.5 Eos % (Auto) 2.5 Baso % (Auto) 0.8 Lymph # (Auto) 0.93 [place] # (Auto) 0.4 Eos # (Auto) 0.1 Baso # (Auto) 0.0 Abs Immat Gran (auto) 0.02 Absolute Neuts (auto) 3.7 Absolute Nucleated RBC 0.000 Nucleated RBC % 0.0 Sodium 141 Potassium 3.8 Chloride 107 Carbon Dioxide 23 Anion Gap 11 BUN 12 Creatinine 0.69 L Estim Creat Clear Calc 76 Estimated GFR > 60 Glucose 98 Calcium 9.6 Total Bilirubin 0.6 AST 43 H ALT 33 Alkaline Phosphatase 63 Total Protein 8.0 Albumin 4.5 Assessment and Plan Assessment and plan (1) Multiple falls: Code(s): R29.6 - Repeated falls Status: Acute (2) Lower extremity dysfunction: Code(s): R29.898 - Other symptoms and signs involving the musculoskeletal system Status: Acute (3) History of total replacement of right hip: Onset Date: 07/2024 Code(s): Z96.641 - Presence of right artificial hip joint Status: Acute (4) Hypothyroidism: Qualifiers: Hypothyroidism type: unspecified Qualified Code(s): E03.9 - Hypothyroidism, unspecified Code(s): E03.9 - Hypothyroidism, unspecified Status: Acute Plan The patient has had multiple falls due to weakness of bilateral lower extremities. Weakness is assumed to be due to combination deconditioning and recent hip surgery. Patient does not have any obvious neurologic deficits that would explain worsening ambulatory dysfunction from baseline. Sounds as if the patient has been chronically weak since her initial hip surgery 2 and half years ago and did not undergo acute rehab at that time because she still had [id number] arthritis in the right hip. Patient likely needs more intensive physical therapy but will consult PT and OT for evaluation and discharge recommendations. Will check an x-ray of the pelvis and right hip to rule out any malalignment or fracture. Will continue patient's home levothyroxine for her hypothyroidism and will continue home anti-inflammatory regimen as well as antidepressants. Patient has alprazolam listed on her home med list but it does not appear that she has had a refill on this medication on the prescription drug monitoring program. Will hold alprazolam at this time. Will also add Dulcolax for bowel regimen and Tums as needed for heartburn. Quality VTE Prophylaxis VTE prophylaxis: pharmacologic ordered (Lovenox 40 mg subQ daily.) Hospitalist MIPS Advance Care Plan I have confirmed that the patient's Advanced Care Plan is present, code status is documented, or surrogate decision maker is listed in patient medical record.: Yes Medication Reconciliation I have utilized all available resources to obtain, update and review the patients current medications (includes all prescriptions, OTC, herbals, cannabis, and nutritional supplements).: Yes
--- NOTE | 2024-10-28 14:04 | ADMGEN ---
This patient, Mirlande Ace, was admitted to [facility] S[facility] Room 332-02. Patient/family oriented to hospital policies and general routines including ID bracelet, bed and alarms, visiting hours, pain management, procedures, bathroom and other care routines, personal items, smoking policy, room service/diet, and visiting hours. Information on how to activate the Rapid Response Team has been discussed. Patient/Family are encouraged to report perceived risks to care and to ask questions if they do not understand what they are told or what they should do.
[2024-10-28] MEDS: DICLOFENAC SOD 75 MG TABLET.EC PO (17:00)
[2024-10-29] MEDS: LEVOTHYROXINE SODIUM 100 MCG TABLET 200 MCG PO (05:27)
[2024-10-29 06:00] VITALS: BP 143/65; PULSE 78; RESP 20; TEMP 37; O2SAT 96
[2024-10-29 08:00] VITALS: O2SAT 98
[2024-10-29] MEDS: DICLOFENAC SOD 75 MG TABLET.EC PO ×2 (08:56→17:33)
[2024-10-29] MEDS: ASPIRIN 81 MG ENTERIC TABLET PO (08:56)
[2024-10-29] MEDS: SPIRONOLACTONE 50 MG TABLET 100 MG PO (08:56)
[2024-10-29] MEDS: ENOXAPARIN 40 MG/0.4 ML SYRINGE SUB-Q (08:56)
[2024-10-29] MEDS: FLUoxetine HCL 20 MG CAPSULE PO (08:56)
--- NOTE | 2024-10-29 09:20 | PCPTNOTE ---
Spoke with current hospitalist. Therapy is on hold until Ortho has consulted on the pt. Will follow.
--- NOTE | 2024-10-29 11:49 | P.PNIM_ITS ---
Progress Note: A&P Assessment and Plan (1) Multiple falls: Code(s): R29.6 - Repeated falls Status: Acute (2) Lower extremity dysfunction: Code(s): R29.898 - Other symptoms and signs involving the musculoskeletal system Status: Acute (3) History of total replacement of right hip: Onset Date: 07/2024 Code(s): Z96.641 - Presence of right artificial hip joint Status: Acute (4) Hypothyroidism: Qualifiers: Hypothyroidism type: unspecified Qualified Code(s): E03.9 - Hypothyroidism, unspecified Code(s): E03.9 - Hypothyroidism, unspecified Status: Acute Plan The patient has had multiple falls due to weakness of bilateral lower extremities. Weakness is assumed to be due to combination deconditioning and recent hip surgery. Patient does not have any obvious neurologic deficits that would explain worsening ambulatory dysfunction from baseline. Sounds as if the patient has been chronically weak since her initial hip surgery 2 and half years ago and did not undergo acute rehab at that time because she still had b one-on-bone arthritis in the right hip. Patient likely needs more intensive physical therapy but will consult PT and OT for evaluation and discharge recommendations. Will check an x-ray of the pelvis and right hip to rule out any malalignment or fracture. Will continue patient's home levothyroxine for her hypothyroidism and will continue home anti-inflammatory regimen as well as antidepressants. Patient has alprazolam listed on her home med list but it does not appear that she has had a refill on this medication on the prescription drug monitoring program. Will hold alprazolam at this time. Will also add Dulcolax for bowel regimen and Tums as needed for heartburn. Subjective Date/time seen: 10/29/24 11:49 Interval history: Patient had repeat fall recent times but patient reports she always had issues with balance and underwent extensive workup with PCP including MRI brain and ECHO which did not show any significant findings. Requested records [facility]. Ash started using cane/walker about 3 years ago due to imbalance Review of Systems Review of Systems: 12 systems were reviewed with pertinent positives and negatives per HPI. Except as documented in the HPI, all other systems were reviewed and are negative. Patient reports that she snores quite loudly but had a negative polysomnogram about 15 years ago. However she has gained a significant amount of weight since her polysomnogram. Exam Narrative: Weight 92.8 kg BMI 37.4 Const: Other: No acute distress, obese, appears stated age HENMT: Other: Mucous membranes are moist, no oral pharyngeal erythema, head is normocephalic atraumatic Eyes: Other: Pupils are equal and reactive, no scleral icterus, no conjunctival pallor Neck: Other: Large neck circumference, no JVD, trachea midline Resp: Other: Clear to auscultation bilaterally, no increased work of breathing Cardio: Other: Regular rate, regular rhythm, 2+ bilateral radial pedal pulses GI: Other: Obese, soft, nontender, hypoactive bowel sounds Skin: Other: Non jaundice, no pallor, abrasion to the dorsal right arm Neuro: Other: Alert oriented, speech is clear, no facial asymmetry, sensation is intact in all 4 extremities, no localizing neurologic deficits noted exam limited in part due to patient mobility Extrem: Other: No clubbing, cyanosis or edema, well-healed surgical scar to the right lateral upper thigh with no erythema or drainage Psych: Other: Appropriate mood and affect, pleasant and cooperative, judgment and insight intact Objective Data Vital Signs Vital Signs: Vital Signs - 24 hr 10/28/24 12:31 10/28/24 13:32 10/28/24 14:40 Temperature Pulse Rate 70 80 Respiratory Rate 20 18 Blood Pressure 141/91 H 151/94 H Pulse Oximetry 97 97 97 Oxygen Delivery Room Air 10/28/24 15:25 10/28/24 20:00 10/28/24 22:00 Temperature 99.2 F 99.1 F Pulse Rate 71 73 Respiratory Rate 16 20 Blood Pressure 126/71 124/60 Pulse Oximetry 95 96 Oxygen Delivery Room Air 10/29/24 06:00 Temperature 98.6 F Pulse Rate 78 Respiratory Rate 20 Blood Pressure 143/65 H Pulse Oximetry 96 Oxygen Delivery Intake/Output Intake/Output: Intake & Output 10/26/24 10/27/24 10/28/24 10/29/24 23:59 23:59 23:59 23:59 Intake Total 180 640 Balance 180 640 Meds/Results Medications: Active Medications Generic Name Dose Route Start Last Admin Trade Name Freq PRN Reason Stop Dose Admin Acetaminophen 650 mg 10/28/24 12:06 Acetaminophen 325 Mg Tablet PO Q4H PRN Pain 1-6 Or Fever Hydrocodone Bitart/Acetaminophen 1 tab 10/28/24 12:06 Hydrocodone/Acetaminophen (*Crx) 5-325 Mg Tablet PO Q4H PRN Pain Rated 7-10 Aspirin 81 mg 10/29/24 09:00 10/29/24 08:56 Aspirin 81 Mg Enteric Tablet PO 81 mg DAILY NII Administration Bisacodyl 5 mg 10/28/24 15:36 Bisacodyl 5 Mg Tablet Ec PO QAM PRN Constipation Calcium Carbonate 200 mg 10/28/24 15:36 Calcium Carbonate (Tums) 500 Mg (200 Mg Elemental) PO Q6H PRN Indigestion Diclofenac Sodium 75 mg 10/28/24 17:00 10/29/24 08:56 Diclofenac Sod 75 Mg Tablet.Ec PO 75 mg BID NII Administration Enoxaparin Sodium 40 mg 10/29/24 09:00 10/29/24 08:56 Enoxaparin 40 Mg/0.4 Ml Syringe SUB-Q 40 mg DAILY NII Administration Fluoxetine HCl 20 mg 10/29/24 09:00 10/29/24 08:56 Fluoxetine Hcl 20 Mg Capsule PO 20 mg DAILY NII Administration Levothyroxine Sodium 200 mcg 10/29/24 06:30 10/29/24 05:27 Levothyroxine Sodium 100 Mcg Tablet PO 200 mcg DAILY@0630 NII Administration Ondansetron HCl 4 mg 10/28/24 12:06 Ondansetron Inj 4 Mg/2 Ml Vial IV PUSH Q4H PRN Nausea Spironolactone 100 mg 10/29/24 09:00 10/29/24 08:56 Spironolactone 50 Mg Tablet PO 100 mg DAILY NII Administration Radiology Results: ITS Impressions Hip/Pelvis X-Ray 10/28/24 17:43 IMPRESSION: Vertically oriented fracture in the medial cortex of the proximal ri ght femur just above the level of the cerclage wire. Comparison to postoperative images would be helpful, if they can be made available. Quality VTE Prophylaxis VTE prophylaxis: pharmacologic ordered (Lovenox 40 mg subQ daily.) Hospitalist MIPS Advance Care Plan I have confirmed that the patient's Advanced Care Plan is present, code status is documented, or surrogate decision maker is listed in patient medical record.: Yes Medication Reconciliation I have utilized all available resources to obtain, update and review the patients current medications (includes all prescriptions, OTC, herbals, cannabis, and nutritional supplements).: Yes
[2024-10-29 14:05] VITALS: BP 115/63; PULSE 62; RESP 16; TEMP 37.2; O2SAT 95
[2024-10-29 21:30] VITALS: BP 96/60; PULSE 67; RESP 18; TEMP 35.8; O2SAT 95
[2024-10-30 04:50] VITALS: BP 111/61; PULSE 71; RESP 20; TEMP 36.6; O2SAT 97
[2024-10-30] MEDS: LEVOTHYROXINE SODIUM 100 MCG TABLET 200 MCG PO (05:51)
[2024-10-30 06:27] LABS: Hematocrit 38.1 % (37.0-47.0); Hemoglobin 11.8 g/dL (12.0-15.0); Mean Corpuscular Hemoglobin 30.6 pg (26-34); Mean Corpuscular Volume 98.7 fl (80-100); Mean Platelet Volume 9.7 fl (7.4-10.4); Platelet Count Result 257 k/mm3 (150-375); Red Blood Count 3.86 M/mm3 (4.2-5.4); Red Cell Distribution Width 13.9 % (11.5-14.5)
[2024-10-30 06:44] LABS: Alanine Aminotransferase 31 U/L (6-35); Albumin Level 4.2 g/dL (3.5-5.1); Alkaline Phosphatase 51 U/L (38-126); Anion Gap 9 mmol/L (4-12); Aspartate Amino Transferase 43 U/L (14-36); Bilirubin,Total 0.5 mg/dL (0.2-1.3); Blood Urea Nitrogen 16 mg/dL (7-17); Calcium 9.5 mg/dL (8.4-10.2); Carbon Dioxide 25 mmol/L (22-30); Chloride 104 mmol/L (98-107); Estimated CRCL calculation 60 ml/min; Estimated Glomerular Filt Rate > 60; Glucose 96 mg/dL (65-110); Potassium 4.2 mmol/L (3.4-5.0); Sodium 138 mmol/L (137-145)
[2024-10-30] MEDS: ASPIRIN 81 MG ENTERIC TABLET PO (08:33)
[2024-10-30] MEDS: SPIRONOLACTONE 50 MG TABLET 100 MG PO (08:33)
[2024-10-30] MEDS: DICLOFENAC SOD 75 MG TABLET.EC PO ×2 (08:33→17:46)
[2024-10-30] MEDS: ENOXAPARIN 40 MG/0.4 ML SYRINGE SUB-Q (08:33)
[2024-10-30] MEDS: FLUoxetine HCL 20 MG CAPSULE PO (08:33)
[2024-10-30] MEDS: LIDOCAINE 5% PATCH 1 PATCH TRANSDERM (12:11)
[2024-10-30 14:00] VITALS: BP 98/66; PULSE 67; RESP 20; TEMP 36.4; O2SAT 96
--- NOTE | 2024-10-30 16:39 | PM.IMPN ---
Progress Note: A&P Assessment and Plan (1) Multiple falls: Code(s): R29.6 - Repeated falls Status: Acute (2) Lower extremity dysfunction: Code(s): R29.898 - Other symptoms and signs involving the musculoskeletal system Status: Acute (3) History of total replacement of right hip: Onset Date: 07/2024 Code(s): Z96.641 - Presence of right artificial hip joint Status: Acute (4) Hypothyroidism: Qualifiers: Hypothyroidism type: unspecified Qualified Code(s): E03.9 - Hypothyroidism, unspecified Code(s): E03.9 - Hypothyroidism, unspecified Status: Acute Plan The patient has had multiple falls due to weakness of bilateral lower extremities. Weakness is assumed to be due to combination deconditioning and recent hip surgery. Patient does not have any obvious neurologic deficits that would explain worsening ambulatory dysfunction from baseline. Sounds as if the patient has been chronically weak since her initial hip surgery 2 and half years ago and did not undergo acute rehab at that time because she still had [id number] arthritis in the right hip. Patient likely needs more intensive physical therapy but will consult PT and OT for evaluation and discharge recommendations. Will check an x-ray of the pelvis and right hip to rule out any malalignment or fracture. Will continue patient's home levothyroxine for her hypothyroidism and will continue home anti-inflammatory regimen as well as antidepressants. Patient has alprazolam listed on her home med list but it does not appear that she has had a refill on this medication on the prescription drug monitoring program. Will hold alprazolam at this time. Will also add Dulcolax for bowel regimen and Tums as needed for heartburn. Subjective Date/time seen: 10/30/24 16:39 Interval history: Pending evaluation from Ortho and pending records from [facility]. Review of Systems Review of Systems: 12 systems were reviewed with pertinent positives and negatives per HPI. Except as documented in the HPI, all other systems were reviewed and are negative. Patient reports that she snores quite loudly but had a negative polysomnogram about 15 years ago. However she has gained a significant amount of weight since her polysomnogram. Exam Narrative: Weight 92.8 kg BMI 37.4 Const: Other: No acute distress, obese, appears stated age HENMT: Other: Mucous membranes are moist, no oral pharyngeal erythema, head is normocephalic atraumatic Eyes: Other: Pupils are equal and reactive, no scleral icterus, no conjunctival pallor Neck: Other: Large neck circumference, no JVD, trachea midline Resp: Other: Clear to auscultation bilaterally, no increased work of breathing Cardio: Other: Regular rate, regular rhythm, 2+ bilateral radial pedal pulses GI: Other: Obese, soft, nontender, hypoactive bowel sounds Skin: Other: Non jaundice, no pallor, abrasion to the dorsal right arm Neuro: Other: Alert oriented, speech is clear, no facial asymmetry, sensation is intact in all 4 extremities, no localizing neurologic deficits noted exam limited in part due to patient mobility Extrem: Other: No clubbing, cyanosis or edema, well-healed surgical scar to the right lateral upper thigh with no erythema or drainage Psych: Other: Appropriate mood and affect, pleasant and cooperative, judgment and insight intact Objective Data Vital Signs Vital Signs: Vital Signs - 24 hr 10/29/24 20:00 10/29/24 21:30 10/30/24 04:50 Temperature 96.5 F L 97.8 F Pulse Rate 67 71 Respiratory Rate 18 20 Blood Pressure 96/60 L 111/61 Pulse Oximetry 95 97 Oxygen Delivery Room Air 10/30/24 08:00 10/30/24 14:00 Temperature 97.5 F L Pulse Rate 67 Respiratory Rate 20 Blood Pressure 98/66 L Pulse Oximetry 96 Oxygen Delivery Room Air Intake/Output Intake/Output: Intake & Output 10/27/24 10/28/24 10/29/24 10/30/24 23:59 23:59 23:59 23:59 Intake Total 180 1350 980 Balance 180 1350 980 Meds/Results Medications: Active Medications Generic Name Dose Route Start Last Admin Trade Name Freq PRN Reason Stop Dose Admin Acetaminophen 650 mg 10/28/24 12:06 Acetaminophen 325 Mg Tablet PO Q4H PRN Pain 1-6 Or Fever Hydrocodone Bitart/Acetaminophen 1 tab 10/28/24 12:06 Hydrocodone/Acetaminophen (*Crx) 5-325 Mg Tablet PO Q4H PRN Pain Rated 7-10 Aspirin 81 mg 10/29/24 09:00 10/30/24 08:33 Aspirin 81 Mg Enteric Tablet PO 81 mg DAILY NII Administration Bisacodyl 5 mg 10/28/24 15:36 Bisacodyl 5 Mg Tablet Ec PO QAM PRN Constipation Calcium Carbonate 200 mg 10/28/24 15:36 Calcium Carbonate (Tums) 500 Mg (200 Mg Elemental) PO Q6H PRN Indigestion Diclofenac Sodium 75 mg 10/28/24 17:00 10/30/24 08:33 Diclofenac Sod 75 Mg Tablet.Ec PO 75 mg BID NII Administration Enoxaparin Sodium 40 mg 10/29/24 09:00 10/30/24 08:33 Enoxaparin 40 Mg/0.4 Ml Syringe SUB-Q 40 mg DAILY NII Administration Fluoxetine HCl 20 mg 10/29/24 09:00 10/30/24 08:33 Fluoxetine Hcl 20 Mg Capsule PO 20 mg DAILY NII Administration Levothyroxine Sodium 200 mcg 10/29/24 06:30 10/30/24 05:51 Levothyroxine Sodium 100 Mcg Tablet PO 200 mcg DAILY@0630 NII Administration Lidocaine 1 patch 10/30/24 12:00 10/30/24 12:11 Lidocaine 5% Patch TRANSDERM 1 patch DAILY NII Administration Ondansetron HCl 4 mg 10/28/24 12:06 Ondansetron Inj 4 Mg/2 Ml Vial IV PUSH Q4H PRN Nausea Spironolactone 100 mg 10/29/24 09:00 10/30/24 08:33 Spironolactone 50 Mg Tablet PO 100 mg DAILY NII Administration Radiology Results: ITS Impressions Hip/Pelvis X-Ray 10/28/24 17:43 IMPRESSION: Vertically oriented fracture in the medial cortex of the proximal right femur just above the level of the cerclage wire. Comparison to postoperative images would be helpful, if they can be made available. Head CT 10/29/24 15:56 IMPRESSION: No acute intracranial findings. Labs Labs: Laboratory Results - last 24 hr 10/30/24 05:51 WBC 5.0 RBC 3.86 L Hgb 11.8 L Hct 38.1 MCV 98.7 MCH 30.6 MCHC 31.0 L RDW 13.9 Plt Count 257 MPV 9.7 Sodium 138 Potassium 4.2 Chloride 104 Carbon Dioxide 25 Anion Gap 9 BUN 16 Creatinine 0.91 Estim Creat Clear Calc 60 Estimated GFR > 60 Glucose 96 Calcium 9.5 Total Bilirubin 0.5 AST 43 H ALT 31 Alkaline Phosphatase 51 Total Protein 7.0 Albumin 4.2 Quality VTE Prophylaxis VTE prophylaxis: pharmacologic ordered (Lovenox 40 mg subQ daily.) Hospitalist MIPS Advance Care Plan I have confirmed that the patient's Advanced Care Plan is present, code status is documented, or surrogate decision maker is listed in patient medical record.: Yes Medication Reconciliation I have utilized all available resources to obtain, update and review the patients current medications (includes all prescriptions, OTC, herbals, cannabis, and nutritional supplements).: Yes
--- NOTE | 2024-10-30 18:24 | PC.NURSE ---
On 10/30/24, the INDUSTRIAL ENGINEERING DIRECTOR,Sobia Butler], provided care and completed [employer] documentation on this patient. I have reviewed the INDUSTRIAL ENGINEERING DIRECTOR's documentation and agree with the findings.
--- NOTE | 2024-10-30 19:04 | P.CONOP_ITS ---
Assessment and Plan Assessment and plan (1) History of total replacement of right hip: Onset Date: 07/2024 Code(s): Z96.641 - Presence of right artificial hip joint Status: Acute Plan 64 yr old female admitted after fall with bilateral lower extremity weakness. - on xray evaluation, there was concerned regarding possible Right Hip Calcar fracture with cerclage wires. - xrays show stable bilateral FAM with cerclage wires in place. - calcar fracture is intra-op fracture and stable. - recommend WBAT out of bed with physical therapy. History of Present Illness HPI Consult date: 10/30/24 Requesting physician: Jamarcus Reese MD Chief complaint: s/p Bilateral Total hip replacement Narrative: 64 yr old female admitted after fall with bilateral lower extremity weakness. - on xray evaluation, there was concerned regarding possible Right Hip Calcar fracture with cerclage wires. - she reports no hip pain PMFSH Past Medical History Medical History (Updated 10/28/24 @ 15:40 by Elle Garza DO) Mild diastolic dysfunction Echocardiogram 02/2022: EF 60 65% grade 1 diastolic dysfunction Hypothyroidism Anxiety and depression Arthritis Surgical History Surgical History (Updated 10/28/24 @ 13:51 by Elle Garza DO) History of total replacement of right hip (07/2024) History of surgery Corrective female 1983 Social History Social History (Updated 10/28/24 @ 15:36 by Elle Garza DO) Social History: The patient lives at home with her of 43 years. They have no children. She has a 2-year-old blanchard retriever at home. She is a lifelong nonsmoker. She only rarely drinks alcohol in small amounts. 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 Code status: Full code Surrogate decision maker: Smoking status: Never smoker Alcohol intake: never Drinks per week: 2 Substance use: never Substance use type: does not use Do You Feel Safe in your Home?: Yes Lack of Transportation: No Lack of Food: Never True Current Housing: I Have Housing Concerned About Future Housing: No Difficulty Paying Gas/Electric Bills: No Difficulty Paying for Meds: No Currently Unemployed: No Education: High School Diploma/GED Difficulty w/ Childcare or Family Care: No Living arrangements: with family Occupation/Education: occupation Additional occupation/education comments: [employer] Gender identity (if verbalized by the patient): Female Spiritual care concerns: No Meds Home Medications and Allergies Home Medications ?Medication ?Instructions ?Recorded ?Confirmed ?Type alprazolam 0.5 mg tablet 0.5 mg PO DAILY 02/02/22 10/28/24 History diclofenac sodium 75 mg 75 mg PO BID 02/02/22 10/28/24 History tablet,delayed release fluoxetine 20 mg capsule 20 mg PO DAILY 02/02/22 10/28/24 History levothyroxine 200 mcg capsule 200 mcg PO DAILY 02/02/22 10/28/24 History spironolactone 100 mg tablet 100 mg PO DAILY 02/02/22 10/28/24 History aspirin 81 mg tablet,delayed 81 mg PO DAILY 10/28/24 10/28/24 History release (Adult Low Dose Aspirin) Allergies Allergy/AdvReac Type Severity Reaction Status Date / Time No Known Allergies Allergy Verified 10/28/24 14:16 Vital Signs Vital Signs - 24 hr 10/29/24 20:00 10/29/24 21:30 10/30/24 04:50 Temperature 35.8 C L 36.6 C Pulse Rate 67 71 Respiratory Rate 18 20 Blood Pressure 96/60 L 111/61 Pulse Oximetry 95 97 Oxygen Delivery Room Air 10/30/24 08:00 10/30/24 14:00 Temperature 36.4 C L Pulse Rate 67 Respiratory Rate 20 Blood Pressure 98/66 L Pulse Oximetry 96 Oxygen Delivery Room Air Exam 2 Narrative: No pain with range of motion of Right Hip and No pain with ROM of Left hip Results Labs 10/30/24 05:51 10/30/24 05:51 Labs: Abnormal lab results 10/30/24 Range/Units 05:51 RBC 3.86 L (4.2-5.4) M/mm3 Hgb 11.8 L (12.0-15.0) g/dL MCHC 31.0 L (32-36) g/dl AST 43 H (14-36) U/L H & H 10/28/24 10/30/24 Range/Units 09:42 05:51 Hgb 12.1 11.8 L (12.0-15.0) g/dL Hct 38.4 38.1 (37.0-47.0) % All other labs normal.
[2024-10-30 20:56] VITALS: BP 100/53; PULSE 78; RESP 13; TEMP 36.4; O2SAT 96
[2024-10-31 05:27] VITALS: BP 106/69; PULSE 65; RESP 13; TEMP 36.2; O2SAT 98
[2024-10-31] MEDS: LEVOTHYROXINE SODIUM 100 MCG TABLET 200 MCG PO (06:20)
[2024-10-31] MEDS: ASPIRIN 81 MG ENTERIC TABLET PO (09:00)
[2024-10-31] MEDS: SPIRONOLACTONE 50 MG TABLET 100 MG PO (09:00)
[2024-10-31] MEDS: ENOXAPARIN 40 MG/0.4 ML SYRINGE SUB-Q (09:00)
[2024-10-31] MEDS: LIDOCAINE 5% PATCH 1 PATCH TRANSDERM (09:00)
[2024-10-31] MEDS: DICLOFENAC SOD 75 MG TABLET.EC PO ×2 (09:00→17:26)
[2024-10-31] MEDS: FLUoxetine HCL 20 MG CAPSULE PO (09:00)
[2024-10-31 14:00] VITALS: BP 119/91; PULSE 72; RESP 16; TEMP 37.1; O2SAT 96
--- NOTE | 2024-10-31 17:07 | P.PNIM_ITS ---
Progress Note: A&P Assessment and Plan (1) Multiple falls: Code(s): R29.6 - Repeated falls Status: Acute (2) Lower extremity dysfunction: Code(s): R29.898 - Other symptoms and signs involving the musculoskeletal system Status: Acute (3) History of total replacement of right hip: Onset Date: 07/2024 Code(s): Z96.641 - Presence of right artificial hip joint Status: Acute (4) Hypothyroidism: Qualifiers: Hypothyroidism type: unspecified Qualified Code(s): E03.9 - Hypothyroidism, unspecified Code(s): E03.9 - Hypothyroidism, unspecified Status: Acute Plan The patient has had multiple falls due to weakness of bilateral lower extremities. Weakness is assumed to be due to combination deconditioning and recent hip surgery. Patient does not have any obvious neurologic deficits that would explain worsening ambulatory dysfunction from baseline. Sounds as if the patient has been chronically weak since her initial hip surgery 2 and half years ago and did not undergo acute rehab at that time because she still had b one-on-bone arthritis in the right hip. Patient likely needs more intensive physical therapy but will consult PT and OT for evaluation and discharge recommendations. Will check an x-ray of the pelvis and right hip to rule out any malalignment or fracture. Will continue patient's home levothyroxine for her hypothyroidism and will continue home anti-inflammatory regimen as well as antidepressants. Patient has alprazolam listed on her home med list but it does not appear that she has had a refill on this medication on the prescription drug monitoring program. Will hold alprazolam at this time. Will also add Dulcolax for bowel regimen and Tums as needed for heartburn. Subjective Date/time seen: 10/31/24 17:07 Interval history: Discussed with physical therapy and advised patient needs rehab. Discussed the plan with the patient. 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 Review of Systems Review of Systems: 12 systems were reviewed with pertinent positives and negatives per HPI. Except as documented in the HPI, all other systems were reviewed and are negative. Patient reports that she snores quite loudly but had a negative polysomnogram about 15 years ago. However she has gained a significant amount of weight since her polysomnogram. Exam Narrative: Weight 92.8 kg BMI 37.4 Const: Other: No acute distress, obese, appears stated age HENMT: Other: Mucous membranes are moist, no oral pharyngeal erythema, head is normocephalic atraumatic Eyes: Other: Pupils are equal and reactive, no scleral icterus, no conjunctival pallor Neck: Other: Large neck circumference, no JVD, trachea midline Resp: Other: Clear to auscultation bilaterally, no increased work of breathing Cardio: Other: Regular rate, regular rhythm, 2+ bilateral radial pedal pulses GI: Other: Obese, soft, nontender, hypoactive bowel sounds Skin: Other: Non jaundice, no pallor, abrasion to the dorsal right arm Neuro: Other: Alert oriented, speech is clear, no facial asymmetry, sensation is intact in all 4 extremities, no localizing neurologic deficits noted exam limited in part due to patient mobility Extrem: Other: No clubbing, cyanosis or edema, well-healed surgical scar to the right lateral upper thigh with no erythema or drainage Psych: Other: Appropriate mood and affect, pleasant and cooperative, judgment and insight intact Objective Data Vital Signs Vital Signs: Vital Signs - 24 hr 10/30/24 20:00 10/30/24 20:56 10/31/24 05:27 Temperature 97.6 F 97.1 F L Pulse Rate 78 65 Respiratory Rate 13 13 Blood Pressure 100/53 L 106/69 Pulse Oximetry 96 98 Oxygen Delivery Room Air 10/31/24 08:00 10/31/24 08:25 10/31/24 09:50 Temperature Pulse Rate Respiratory Rate Blood Pressure Pulse Oximetry Oxygen Delivery Room Air Room Air Room Air 10/31/24 14:00 Temperature 98.8 F Pulse Rate 72 Respiratory Rate 16 Blood Pressure 119/91 H Pulse Oximetry 96 Oxygen Delivery Intake/Output Intake/Output: Intake & Output 10/28/24 10/29/24 10/30/24 10/31/24 23:59 23:59 23:59 23:59 Intake Total 180 1350 1460 780 Balance 180 1350 1460 780 Meds/Results Medications: Active Medications Generic Name Dose Route Start Last Admin Trade Name Freq PRN Reason Stop Dose Admin Acetaminophen 650 mg 10/28/24 12:06 Acetaminophen 325 Mg Tablet PO Q4H PRN Pain 1-6 Or Fever Hydrocodone Bitart/Acetaminophen 1 tab 10/28/24 12:06 Hydrocodone/Acetaminophen (*Crx) 5-325 Mg Tablet PO Q4H PRN Pain Rated 7-10 Aspirin 81 mg 10/29/24 09:00 10/31/24 09:00 Aspirin 81 Mg Enteric Tablet PO 81 mg DAILY NII Administration Bisacodyl 5 mg 10/28/24 15:36 Bisacodyl 5 Mg Tablet Ec PO QAM PRN Constipation Calcium Carbonate 200 mg 10/28/24 15:36 Calcium Carbonate (Tums) 500 Mg (200 Mg Elemental) PO Q6H PRN Indigestion Diclofenac Sodium 75 mg 10/28/24 17:00 10/31/24 09:00 Diclofenac Sod 75 Mg Tablet.Ec PO 75 mg BID NII Administration Enoxaparin Sodium 40 mg 10/29/24 09:00 10/31/24 09:00 Enoxaparin 40 Mg/0.4 Ml Syringe SUB-Q 40 mg DAILY NII Administration Fluoxetine HCl 20 mg 10/29/24 09:00 10/31/24 09:00 Fluoxetine Hcl 20 Mg Capsule PO 20 mg DAILY NII Administration Levothyroxine Sodium 200 mcg 10/29/24 06:30 10/31/24 06:20 Levothyroxine Sodium 100 Mcg Tablet PO 200 mcg DAILY@0630 NII Administration Lidocaine 1 patch 10/30/24 12:00 10/31/24 09:00 Lidocaine 5% Patch TRANSDERM 1 patch DAILY NII Administration Ondansetron HCl 4 mg 10/28/24 12:06 Ondansetron Inj 4 Mg/2 Ml Vial IV PUSH Q4H PRN Nausea Spironolactone 100 mg 10/29/24 09:00 10/31/24 09:00 Spironolactone 50 Mg Tablet PO 100 mg DAILY NII Administration Radiology Results: ITS Impressions Hip/Pelvis X-Ray 10/28/24 17:43 IMPRESSION: Vertically oriented fracture in the medial cortex of the proximal right femur just above the level of the cerclage wire. Comparison to postoperative images would be helpful, if they can be made available. Head CT 10/29/24 15:56 IMPRESSION: No acute intracranial findings. Quality VTE Prophylaxis VTE prophylaxis: pharmacologic ordered (Lovenox 40 mg subQ daily.) Hospitalist MIPS Advance Care Plan I have confirmed that the patient's Advanced Care Plan is present, code status is documented, or surrogate decision maker is listed in patient medical record.: Yes Medication Reconciliation I have utilized all available resources to obtain, update and review the patients current medications (includes all prescriptions, OTC, herbals, cannabis, and nutritional supplements).: Yes
[2024-10-31] MEDS: ACETAMINOPHEN 325 MG TABLET 650 MG PO (17:30)
--- NOTE | 2024-10-31 19:04 | PC.NURSE ---
On 10/31/24, the TUBE COREMAKER, Sobia Butler, provided care and completed [employer] documentation on this patient. I have reviewed the TUBE COREMAKER's documentation and agree with the findings.
[2024-10-31 21:00] VITALS: BP 97/54; PULSE 62; RESP 24; TEMP 35.7; O2SAT 95
[2024-11-01] MEDS: LEVOTHYROXINE SODIUM 100 MCG TABLET 200 MCG PO (05:35)
[2024-11-01 06:00] VITALS: BP 125/54; PULSE 74; RESP 16; TEMP 35.9; O2SAT 97
[2024-11-01 08:51] VITALS: O2SAT 96
[2024-11-01 09:08] VITALS: PULSE 74; RESP 16; O2SAT 96
[2024-11-01] MEDS: DICLOFENAC SOD 75 MG TABLET.EC PO (09:08)
[2024-11-01] MEDS: FLUoxetine HCL 20 MG CAPSULE PO (09:08)
[2024-11-01] MEDS: ASPIRIN 81 MG ENTERIC TABLET PO (09:08)
[2024-11-01] MEDS: LIDOCAINE 5% PATCH 1 PATCH TRANSDERM (09:08)
[2024-11-01] MEDS: ENOXAPARIN 40 MG/0.4 ML SYRINGE SUB-Q (09:09)
[2024-11-01] MEDS: SPIRONOLACTONE 50 MG TABLET 100 MG PO (09:09)
[2024-11-01 14:00] VITALS: BP 130/80; PULSE 67; RESP 16; TEMP 36.9; O2SAT 99
--- NOTE | 2024-11-01 15:13 | P.DS_ITS ---
DS: Admitting Diagnosis Discharge Date 11/01/2024 Admitting Diagnosis Fall DS: Discharge Diagnosis Discharge Diagnosis (1) Multiple falls: Code(s): R29.6 - Repeated falls Status: Acute (2) Lower extremity dysfunction: Code(s): R29.898 - Other symptoms and signs involving the musculoskeletal system Status: Acute (3) History of total replacement of right hip: Onset Date: 07/2024 Code(s): Z96.641 - Presence of right artificial hip joint Status: Acute (4) Hypothyroidism: Qualifiers: Hypothyroidism type: unspecified Qualified Code(s): E03.9 - Hypothyroidism, unspecified Code(s): E03.9 - Hypothyroidism, unspecified Status: Acute Plan Please refer to hospital course for brief summary The patient has had multiple falls due to weakness of bilateral lower extremities. Weakness is assumed to be due to combination deconditioning and recent hip surgery. Patient does not have any obvious neurologic deficits that would explain worsening ambulatory dysfunction from baseline. 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 Patient likely needs more intensive physical therapy but will consult PT and OT for evaluation and discharge recommendations. Will check an x-ray of the pelvis and right hip to rule out any malalignment or fracture. Will continue patient's home levothyroxine for her hypothyroidism and will continue home anti-inflammatory regimen as well as antidepressants. Patient has alprazolam listed on her home med list but it does not appear that she has had a refill on this medication on the prescription drug monitoring program. Will hold alprazolam at this time. Will also add Dulcolax for bowel regimen and Tums as needed for heartburn. DS: Summary Hospital Course Hospital Course: 64-year-old female with past medical history of anxiety, depression, hypothyroidism, obesity and right hip replacement 8 weeks ago at [facility] who presented to the ER with heaviness of the legs and weakness of her legs for 10 days. The patient reports that she had early left hip replacement done 2 and half years ago she had her right hip replaced on 08/26/2024. She denies any increased pain from what she would expect from postop hip repair. Will for the last 7-10 days she has become weaker. She is still only supposed be weight- bearing about 50% on the right leg. When she went to stand up and pivot to get up this morning she reports that her legs just warrant underneath err and she slid to the floor. She denies any associated back pain, loss of bowel or bladder control, or unexpected hip pain. She has intact sensation of her lower extremities. She can lift both legs equally from the bed a few inches. She has 4/5 plantar strength on the right and 5/5 on the left. She reports that she feels like her feet just slip from under her even when she is wearing her shoes. She states that her thinks that is that her knees give out. The patient has been having at home physical therapy. The ER note states that the patient went to acute rehab in [place] for 1 week but was discharged home because she did not like it therapy. She tells me at the time my evaluation that she never went to acute rehab. She denies any fevers or chills. 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 She has chronic constipation and only has a bowel movement about every 5-7 days at baseline. She denies any abdominal pain. The patient's reported to the ER staff that he feels helpless at home due to the patient's multiple falls. Patient has evaluated by Ortho And recommended - on xray evaluation, there was concerned regarding possible Right Hip Calcar fracture with cerclage wires. - xrays show stable bilateral FAM with cerclage wires in place. - calcar fracture is intra-op fracture and stable. - recommend WBAT out of bed with physical therapy. I offered and recommend acute rehab unfortunately patient declined the offer due to her personal reasons. Patient reports that she has a family member to help and physical therapy comes to her home. Advised to follow up with her primary orthopedist. During the admission her Xanax was on hold and advised to continue after discussing with primary care On the day of discharge, the patient was seen and examined. Vital signs were stable. Physical exam were stable and labs were reviewed at length. Discharge instructions, medications, and follow-up appointments were discussed with the patient at length and all day questions were answered. ER warnings were given. Status at Discharge Cognitive/behavioral status at discharge: Stable Time Spent with Patient Time attestation: Total time spent providing and/or coordinating discharge services: 45 minute Exam Narrative: Weight 92.8 kg BMI 37.4 Const: Other: No acute distress, obese, appears stated age HENMT: Other: Mucous membranes are moist, no oral pharyngeal erythema, head is normocephalic atraumatic Eyes: Other: Pupils are equal and reactive, no scleral icterus, no conjunctival pallor Neck: Other: Large neck circumference, no JVD, trachea midline Resp: Other: Clear to auscultation bilaterally, no increased work of breathing Cardio: Other: Regular rate, regular rhythm, 2+ bilateral radial pedal pulses GI: Other: Obese, soft, nontender, hypoactive bowel sounds Skin: Other: Non jaundice, no pallor, abrasion to the dorsal right arm Neuro: Other: Alert oriented, speech is clear, no facial asymmetry, sensation is intact in all 4 extremities, no localizing neurologic deficits noted exam limited in part due to patient mobility Extrem: Other: No clubbing, cyanosis or edema, well-healed surgical scar to the right lateral upper thigh with no erythema or drainage Psych: Other: Appropriate mood and affect, pleasant and cooperative, judgment and insight intact DS: Data Imaging Radiologist's impression: ITS Impressions Hip/Pelvis X-Ray 10/28/24 17:43 IMPRESSION: Vertically oriented fracture in the medial cortex of the proximal right femur just above the level of the cerclage wire. Comparison to postoperative images would be helpful, if they can be made available. Head CT 10/29/24 15:56 IMPRESSION: No acute intracranial findings. Discharge Plan Discharge Attending physician on discharge: Bronson Baca Consulting providers: [facility] Discharging Clinician: Bronson Baca Anticipated Discharge Date/Time: 11/01/24 15:46 Patient Disposition: Home with Home Health Service Activity: other - see discharge instructions Diet: regular Discharge Instructions: Per Care Coordination. Patient to have [facility] for RN/PT/OT eval and treat [phone]. They will contact patient to schedule first visit. Needs to follow-up with orthopedics As per orthopedics recommend WBAT out of bed with physical therapy Please discuss with your primary care and continue alprazolam if needed Check blood pressure 1 to 2 times a day. Record and bring into your doctor for review. Call your doctor if your blood pressure is greater than 180/110 or less than 90/45. Walk with cane or other assist device. Take precautions to avoid falls. Rise slowly from a lying or sitting position. Pause before standing or walking. Contact your doctor or call 911 and come to the Emergency Room if you have any type of trauma, lightheadedness with standing or other worrisome symptoms. Avoid NSAIDs (ibuprofen, naproxen, Aleve). Tylenol is safe to take. Follow-up with your primary care provider in 1-2 weeks. Please call for appointment. Thank you for using [facility] for your health care needs. Patient Instructions: Antibiotic Form Patient Language: Burkinan Stand Alone Forms: General Discharge Information Follow-up/Referrals: Kermit*,CARMEN Leahy [Primary Care Provider] - [facility] MD [Physician] - Discharge Medications: Continued fluoxetine 20 mg capsule 20 mg PO DAILY spironolactone 100 mg tablet 100 mg PO DAILY levothyroxine 200 mcg capsule 200 mcg PO DAILY diclofenac sodium 75 mg tablet,delayed release (DR/EC) 75 mg PO BID aspirin [Adult Low Dose Aspirin] 81 mg tablet,delayed release (DR/EC) 81 mg PO DAILY Held alprazolam 0.5 mg tablet 0.5 mg PO DAILY Hold Instructions: Resume on 11/22/24. Holding Xanax due to fall. Please discuss with your PCP and continue if needed Date of admission: 10/28/24 12:06 Primary Care Provider: Tosin Hendrix Admitting Provider: Og Chapa Attending physician on admission: Og Chapa Condition: Stable
== END 2024-11-01 16:31 | disposition home health service (06) ==
LOC: ANHED 12:06 → ANH3MEDSUR 10-29 15:17
PROVIDERS: Admitting Provider Internal Medicine; Emergency Provider Family Medicine; PCP Physician Assistant; Visit Provider General Practice
DX: R29.898 Other symptoms and signs involving the musculoskeletal system (principal); R29.6 Repeated falls; Z96.643 Presence of artificial hip joint, bilateral; E03.9 Hypothyroidism, unspecified; M19.90 Unspecified osteoarthritis, unspecified site; F32.A Depression, unspecified; F41.9 Anxiety disorder, unspecified; E66.01 Morbid (severe) obesity due to excess calories; Z68.38 Body mass index [BMI] 38.0-38.9, adult; N39.46 Mixed incontinence; K59.09 Other constipation; Z79.899 Other long term (current) drug therapy
CPT/HCPCS: 36415; 70450; 73502; 80053; 85025; 85027; 96372; 96374; 97110; 97116; 97162; 97166; 97530; 97535; 99285; A9270; G0378; J1650